=== PATIENT | female | born 1960 | race Caucasian/White ===

== ENCOUNTER 2024-12-04 14:35 | Outpatient (CLI) | payer MEDICARE, SELFPAY ==
--- OUTSIDE RECORDS SUMMARY | 2024-10-22 12:40 | XMS_ITS | Encounter Summary ---
Author Organization Healthcare Address [address] [place] [address] Care Team Providers Care Medical Illustrator Name Role Phone Yennifer Mcgee Primary Care Provider [phone] Amberly Childs LPN Unavailable Unavailable Reason for Visit * Consultation (Routine) - Closed Specialty Diagnoses / Procedures Referred By Contabe t Referred To Contact Diagnoses Hypertensive emergency Al Zachary Fonseca MD [address] [place] [phone] Phone: tel: fax: Referral ID Status Reason Start Date Expiration Date Visits Re quested Visits Authorized [id number] Closed 10/14/2024 04/15/2026 1 1 Encounter Details Date Type Department Care Team ([facility] Contact Info) Description 10/22/2024 12:40 PM EDT Office Visit [facility] [address] [place] [address] Breezy Harkins MD [address] [address] MIESHA (acute kidney injury) (CMS/HCC) (Primary Dx); Hypertensive emergency Social History Tobacco Use Types Packs/Day Years Used Date Smoking Tobacco: Every Day Cigarettes 1 43 Passive Smoke Exposure: Current Smokeless Tobacco: Never Tobacco Cessation:Ready to Q uit: Not Asked; Counseling Given: Not Answered Alcohol Use Standard Drinks/Week Comments Not Currently 0 (1 standard drink = 0.6 oz pur e alcohol) Humiliation, Afraid, Rape, and Kick questionnair e Answer Date Recorded Within the last year, have y ou been afraid of your partner or ex-partner? No 10/08/2024 Within the last year, have y ou been humiliated or emotionally abused in other ways by your partner or ex-partner? No Within the last year, have y ou been kicked, hit, slapped, or otherwise physically hurt by your partner or ex-partner? No 10/08/2024 Within the last year, have y ou been raped or forced to have any kind of sexual activity by your partner or ex-partner? No 10/08/2024 Social Connection and Isolation Panel Answer Date Recorded In a typical week, how many times do you talk on the phone with family, friends, or neighbors? More than three times a week 10/08/2024 How often do you get togethe r with friends or relatives? More than three times a week 10/08/2024 How often do you attend [facility] or methodist services? Never 10/08/2024 Do you belong to any clubs o r organizations such as evangelical groups, unions, fraternal or athletic groups, or school groups? No 10/08/2024 How often do you attend meet ings of the clubs or organizations you belong to? Never 10/08/2024 Are you , , di vorced, , never , or living with a partner? Patient declined 10/08/2024 AUDIT-C Answer Date Recorded Q1: How often do you have a drink containing alcohol? Never 10/08/2024 Q2: How many drinks containi ng alcohol do you have on a typical day when you are drinking? Patient does not drink Q3: How often do you have si x or more drinks on one occasion? Never 10/08/2024 [facility] - Occupational Stress Questionnaire Answer Date Recorded Do you feel stress - tense, restless, nervous, or anxious, or unable to sleep at night because your mind is troubled all the time - these days? Only a little 10/08/2024 Exercise Vital Sign Answer Date Recorde d On average, how many days pe r week do you engage in moderate to strenuous exercise (like a brisk walk)? 0 days 10/08/2024 On average, how many minutes do you engage in exercise at this level? 0 min 10/08/2024 Hunger Vital Sign Answer Date Recorded Within the past 12 months, y ou worried that your food would run out before you got the money to buy more. Never true 10/09/19 25 Within the past 12 months, t he food you bought just didn't last and you didn't have money to get more. Never true 10/08/2024 PRAPARE - Transportation Answer Date Re corded In the past 12 months, has l ack of transportation kept you from medical appointments or from getting medications? No 09/23 In the past 12 months, has l ack of transportation kept you from meetings, work, or from getting things needed for daily living? No 10/08/2024 Housing Stability Vital Sign Answer Dmitry e Recorded In the last 12 months, was t here a time when you were not able to pay the mortgage or rent on time? No 10/08/2024 In the past 12 months, how m any times have you moved where you were living? 0 10/08/2024 At any time in the past 12 m [facility], were you homeless or living in a custodial (including now)? No 10/08/2024 Utilities Answer Date Recorded In the past 12 months has th e electric, gas, oil, or water company threatened to shut off services in your home? No 10/08/2024 Comments Unknown Sex and Gender Information Value Date Recorded Sex Assigned at Not on file Legal Sex Female 2:10 PM EDT Gender Identity Not on file Sexual Orientation Not on file documented as of this encounter Last Filed Vital Signs Vital Sign Reading Time Taken Comments Blood Pressure 142/88 10/22/2024 12:51 PM EDT provider made aware Pulse 70 10/22/2024 12:51 PM EDT Temperature - - Respiratory Rate 18 10/22/2024 12:4 5 PM EDT Oxygen Saturation 98% 10/22/2024 12: 45 PM EDT Inhaled Oxygen Concentration - - Weight 39.3 kg (86 lb 10.3 oz) 10/22/2024 12:45 PM EDT Height 154.9 cm (5' 1 ) 10/22/2024 12:4 5 PM EDT Body Mass Index 16.37 10/22/2024 12:45 PM EDT documented in this encounter Miscellaneous Notes * Progress Notes - Breezy Harkins MD - 10/22/2024 12:40 PM EDT Transitional Care Management Progress Note: Vtie-ya-Msqe Visit Patient: Samantha Rabago : 1960 PCP: Yennifer Mcgee PA Subjective Samantha Rabago is a 63 y.o. female presenting today for follow-up after being discharged from the hospital 8 days ago. The main problem requiring admission was HTN. The discharge summary and/or Transitional Care Management documentation was reviewed. Medication reconciliation was performed as indicated via the Dioni as Reviewed timestamp. Samantha Rabago was contacted by Transitional Care Management services two days after her discharge. This encounter and supporting documentation was reviewed. The complexity of medical decision making for this patient's transitional care is moderate. Synopsis of recent Hospital Stay (with paraphrasing): 63 y.o. female with a PMH of HTN, untreated anxiety and depression, CAD x4 stents who presented from [facility] for psychosis and delusions due to elevated blood pressure, chest pain, and headache. Patient went to OSH and had chest pain. Troponin was 21 --> 22 and BP was 193/128 on arrival. Coreg was given. Her BP improved to 184/52 but had headache that was the worst headache of her life. Also endorsed blurry vision. She had scans of her chest and abdomen showing no evidence of aortic dissection. Upon arrival, BP was 210/107. In the ED, patient was given Zyprexa and this improved her BP. CBC andCMP unremarkable, troponin 13. CT head showed no large acute cortical infarct or intracranial hemorrhage, moderate amount of likely ischemic white matter lesions asymmetrically greater in the left parietal lobe, areas of superimposed edema concerning PRES, tiny air bubble in right cavernous sinus presumably related to IV placement. EKG showed LVH. Neurology was consulted and recommended MRI head,which showed moderate white matter disease, that might represent a combination of chronic small vessel ischemia and potentially areas of vasogenic edema, particularly in the parietal periventricular white matter, perhaps related to posterior reversible encephalopathy. Patient was started on nifedipine 30 mg in addition to her losartan and Coreg. Losartan was discontinued due to MIESHA. Nifedipine was increased to 60 mg. States she was taking aspirin 324 mg for years after stent placement. Called cardiology who said there was no indication for that high of a dose. Due to bleeding risk on that high of a dose of aspirin and no indication, changed dose to 81 mg daily. Referral placed for cardiology. Psych was consulted for psychosis. Initially she was started on Zyprexa but this was changed to [place]ry[place] ldol due to side effects of dry mouth and feeling off. Psych stated patient could come off of 72-hour hold and did not need to go to [facility] or [facility] on discharge. Patient Presents to Discharge Clinic today for followup. She reports she is doing well. Catching upon sleep. She does not have a BP cuff.No new problems. Review of Systems: Review of Systems Constitutional: Negative for chills and fever. Gastrointestinal: Negative for nausea and vomiting. PMHx: COPD TUD anxiety/depression Arthritis CAD, s/p heart stent Hypertension Malnutrition Past Surgical History: Surgical History[1] Family History: Family History[2] Objective Physical Exam Vitals and nursing note reviewed. Constitutional: Appearance: Normal appearance. She is underweight. HENT: Head: Normocephalic and atraumatic. Mouth/Throat: Mouth: Mucous membranes are moist. Pharynx: No oropharyngeal exudate or posterior oropharyngeal erythema. Eyes: General: No scleral icterus. Conjunctiva/sclera: Conjunctivae normal. Pupils: Pupils are equal, round, and reactive to light. Cardiovascular: Rate and Rhythm: Normal rate and regular rhythm. Pulses: Normal pulses. Heart sounds: Normal heart sounds. Pulmonary: Effort: Pulmonary effort is normal. Breath sounds: Wheezing present. Abdominal: General: There is distension. Musculoskeletal: General: Normal range of motion. Cervical back: No tenderness. Right lower leg: No edema. Left lower leg: No edema. Lymphadenopathy: Cervical: No cervical adenopathy. Skin: General: Skin is warm and dry. Neurological: Mental Status: She is alert and oriented to person, place, and time. Psychiatric: Attention and Perception: Attention normal. Mood and Affect: Affect is flat. Speech: Speech normal. Behavior: Behavior normal. Behavior is cooperative. Thought Content: Thought content normal. Judgment: Judgment normal. Assessment and Plan: 1) Hypertension with recent Hypertensive emergency with PRES presented with elevated BP (210/107) with headache and chest pain (trops without delta, EKG withoutST changes) CT head showed moderate amount of likely ischemic white matter lesions asymmetrically greater in the left parietal lobe, areas of superimposed edema concerning PRES MRI head: Moderate white matter disease, some of the regions demonstrates a more confluent appearance. This might represent a combination of chronic small vessel ischemia and potentially areas of vasogenic edema, particularly in the parietal periventricular white matter, perhaps related to posterior reversible encephalopathy in this patient with known hypertensive crisis. Continue: Coreg 12.5 mg BID (prior med), Nifedipine 60mg daily (new med). Note: losartan was held due to MIESHA Neuro was consulted for PRES-no specific recommendations other than BP control BP well controlled today. Will not add back losartan, as she has no clear indication outside of HTN(no DM or CHF) 2) MIESHA Creatinine increased from 0.68 --> 1.16 (baseline ~0.6-0.9) Likely 2/2 HTN Currently holding losartan, can restart if needed once creat has demonstrated clear baseline. Check BMP today 3) Recent Psychosic symptoms, MDD, Uncontrolled Anxiety Recently at [facility] for psychosis and delusions, petitioned by daughter on 10/03 and was placed under a [address] order. Patient had demonstrated: paranoia, tangentiality, pressured speech. Reports demons forcing poison into her body. Believed her daughter and son-in-law were into witchcraft so she must pour water outside to counteract the witchcraft. Psych financial operations consultant opined: no longer requires 72-hour hold, did not need to return to [facility] or [facility] Zyprexa caused side effects of dry mouth and feeling off. Did well with Haldol. Patient planned to saty with friend/cousin. Report made by NICKOLAS due to patient stating that her grandchildren were being groomed. Cont: nightly Haldol 5 mg 4) Malnutrition BMI 16.19 She has gained about 3 pounds since discharge and is eating a little better. allergic to soy so discontinued Boost, used magic cups instead 5) Bilateral lower back pain Deemed Likely muscle pain due to lying in bed for extended periods 6) COPD not on treatment 7) CAD, s/p stents She denies CHF COnt: atorvastatin, aspirin 81 mg 8) TUD does not like nicotine patch, likes nicotine gum discussed cessation and sent script for nicotine gum today. The patient has been counseled on tobacco cessation: Yes Continuity of Care: F/U with Cards 12/31, PCP listed as Yennifer Harkins MD 10/22/2024 1:12 PM [1] Past Surgical History: Procedure Laterality Date APPENDECTOMY NECK SURGERY [2] Family History Problem Relation Name Age of Onset Heart disease Mother documented in this encounter Plan of Treatment Upcoming Encounters Date Type Department Care Team (Late st Contact Info) Description 12/19/2024 1:40 PM EDT Office Visit [facility] Medicine [address] [place] [address] Brynn Baez, CHILLER OPERATOR [address] [place] [address] 12/31/2024 1:30 PM EDT Appointment Medical Office Building Cardiac Diagnostic Testing Medical Office Building Echo Lab [address] [facility], [address] [place] [address] 12/31/2024 2:45 PM EDT Office Visit [facility] [place] [address], [address] [place] [address] Dank Carrasquillo MD [address] [place] [address] documented as of this encounter Results * (ABNORMAL) Basic metabolic panel (10/22/2024 1:32 PM EDT) Glucose, Plasma 105(H) 74 - 99 mg/dL 10/22/2024 5:09 PM EDT [facility] BUN, Plasma 16 8 - 23 mg/dL 10/22/2024 5:09 PM EDT [facility] Creatinine, Plasma 0.75 0.60 - 1.10 mg/dL 10/22/2024 5:09 PM EDT [facility] BUN/Creatinine Ratio 21 10/22/2024 5:09 PM EDT [facility] Sodium, Plasma 137 136 - 145 mmol/L 10/22/2024 5:09 PM EDT [facility] Potassium, Plasma 4.0 3.6 - 4.9 mmol/L 10/22/2024 5:09 PM EDT [facility] Chloride, Plasma 100 97 - 107 mmol/L 10/22/2024 5:09 PM EDT [facility] CO2, Plasma 27 22 - 29 mmol/L 10/22/2024 5:09 PM EDT [facility] Anion Gap 10 6 - 16 mmol/L 10/22/2024 5:09 PM EDT [facility] Total Calcium, Plasma 9.9 8.9 - 10.2 mg/dL 10/22/2024 5:09 PM EDT [facility] eGFRcr 89.6 mL/min/1.7 3m*2 10/22/2024 5:09 PM EDT [facility] Comment:Reported eGFRcr in m L/min/1.73m2 is based the CKD-EPI 2020 equation that does not use a race coefficient. Blood Venous blood specimen / Unknown Venipuncture / Unknown 10/22/2024 1:32 PM EDT 10/22/2024 1:35 PM EDT us Breezy Harkins MD LAB BLOOD ORDERABLES Final Re sult [facility] [address] [place] [address] documented in this encounter Visit Diagnoses Diagnosis MIESHA (acute kidney injury) (CMS/HCC)- Primary Hypertensive emergency documented in this encounter Additional Health Concerns Assessment Noted Time A fall risk assessment has been complete d for the patient 10/22/2024 12:49 PM EDT A Body Mass Index follow-up plan has been documented for the patient 10/22/2024 1:13 PM EDT documented as of this encounter Care Teams Medical Illustrator Relationship Specialty Start Date End Date Yennifer Mcgee PA [address] [place] [address] PCP - General Psychiatry 10/03/24 Amberly Childs LPN TCM Nurse 10/09/24 11/14/24 documented as of this encounter
[2024-12-04 18:30] LABS: Basophils # 0.1 K/mm3 (0-0.2); Basophils % 1.4 % (0.1-2.0); Eosinophils # 0.2 Kmm3 (0.0-0.4); Eosinophils % 2.2 % (0.1-12.0); Hematocrit 47.8 % (37.0-47.0); Hemoglobin 16.1 g/dL (12.2-16.2); Immature Granulocytes # 0.05 10^3uL; Immature Granulocytes % 0.6 %; Lymphocytes # 2.5 K/mm3 (0.7-4.5); Mean Corpuscular HGB Conc 33.7 g/dL (31.8-35.4); Mean Corpuscular Hemoglobin 32.3 pg (27.0-31.2); Mean Platelet Volume 9.4 fl (7.4-10.4); Monocytes # 0.8 K/mm3 (0.1-1.0); Monocytes % 8.9 % (1.7-9.3); Neutrophils # 5.1 K/mm3 (1.8-7.8); Neutrophils % 57.9 % (37.0-80.0); Nucleated Red Blood Cells # 0 10^3/uL; Nucleated Red Blood Cells % 0 %; Platelet Count 332 K/mm3 (142-424); Red Blood Count 4.98 M/mm3 (4.20-5.40); Red Cell Distribution Width 12.5 % (11.5-17.5); Red Cell Distribution Width-SD 44.7 fL; White Blood Count 8.7 K/mm3 (4.8-10.8)
[2024-12-04 19:48] LABS: Alanine Aminotransferase 12 U/L (12-78); Albumin Level 4.7 g/dl (3.5-5.0); Alkaline Phosphatase 74 U/L (38-126); Anion Gap 8.9 mEq/L (5-15); Aspartate Amino Transferase 20 U/L (14-36); Bilirubin,Total 0.5 mg/dl (0.2-1.3); Blood Urea Nitrogen 19 mg/dl (7-17); Calcium 9.8 mg/dl (8.4-10.2); Carbon Dioxide 30 mmol/L (22.0-30.0); Chloride 102 mmol/L (98-107); Chol/HDL Ratio 4.2 (1-3.5); Cholesterol 214 mg/dl (140-200); Estimated Glomerular Filt Rate 56 ml/min (>60); GFR (African American) 68 ML/MIN (>60); Globulin 2.4 g/dL (1.3-3.2); Glucose 101 mg/dl (74-100); HDL Cholesterol 51 mg/dl (40-60); Potassium 4.9 mmoL/L (3.5-5.1); Sodium 136 mmol/L (136-145); Total Protein,Serum 7.1 g/dl (6.3-8.2); Triglycerides 94 mg/dl (30-150); VLDL Cholesterol 19 mg/dL (0-40)
[2024-12-04 20:08] LABS: Direct LDL Cholesterol 117.55 mg/dL (100-129)
[2024-12-04 20:14] LABS: T4 (Thyroxine) 7.4 ug/dl (5.53-11.0)
[2024-12-04 20:18] LABS: HIV Combo NEGATIVE (Negative)
[2024-12-04 20:23] LABS: Hepatitis C Ab Qual. W/ RFX NEGATIVE (Negative)
[2024-12-04 20:27] LABS: Thyroid Stimulating Hormone 1.91 uIU/mL (0.465-4.68)
--- OUTSIDE RECORDS SUMMARY | 2024-12-05 23:24 | XMS_ITS | Encounter Summary ---
Author Organization Healthcare Address [address] [place] [address] Care Team Providers Care Manager Payer Name Role Phone Yennifer Mcgee Primary Care Provider [phone] Amberly Childs LPN Unavailable Unavailable Reason for Visit * Reason Comments TCM Call Encounter Details Date Type Department Care Team (Late st Contact Info) Description 10/17/2024 Patient Outreach POPULATION HEALTH [address] [facility], [address] [place] [address] Mandi Clark LPN VALUE-BASED TRANSFORMATION PROGRAM TCM Call Social History Tobacco Use Types Packs/Day Years Used Date Smoking Tobacco: Every Day Cigarettes Passive Smoke Exposure: Current Smokeless Tobacco: Never Alcohol Use Standard Drinks/Week Comments Not Currently [...] week 10/08/2024 How often do you attend chur ch or adventist services? Never 10/08/2024 Do you belong to any clubs o r organizations such as judaism groups, unions, fraternal or athletic groups, or [...] more drinks on one occasion? Never 10/08/2024 [facility] - Occupational Stress [...] any time in the past 12 m [facility], were you homeless or living in a group home (including now)? No 10/08/2024 Utilities Answer Date Recorded In the past 12 months has th e [employer], gas, oil, or water company threatened to shut off services in your home? No 10/08/2024 Comments Unknown Sex and Gender Information Value Date Recorded Sex Assigned at Not on file Legal Sex Female 2:10 PM EDT Gender Identity Not on file Sexual Orientation Not on file documented as of this encounter Miscellaneous Notes * Progress Notes - Mandi Clark LPN - 10/17/2024 9:28 AM EDT Admit Date: 10/06/2024 Discharge Date: 10/14/2024 Hospital Service: Hospital Medicine Discharge Diagnosis: Hypertensive emergency 10/17/2024 TCM call # 3 Patient Reached: No Outcome: Unable to reach patient for TCM nurse call. Voicemail box is full so no message left. Action: N/A Medication changes: Per Discharge Summary: Medication changes: - Discontinue Zyprexa due to side effects of dry mouth and feeling off. Start Haldol 5 mg nightly. Referral for Psychiatry outpatient. - Aspirin 325 mg changed to 81 mg due to no indication for that high of a dose and is increased bleeding risk. Cardiology referral placed. - Discontinued losartan due to worsening kidney function. Started nifedipine 60 mg. Continue Coreg 12.5 mg BID. Referral to PCP for blood pressure management. CHRISTIANNE appointment: 10/20/2024 @ 1:20pm with Breezy Harkins MD Items to address at CHRISTIANNE: N/A documented in this encounter Plan of Treatment Upcoming Encounters Date Type Department Care Team (Late st Contact Info) Description 12/19/2024 1:40 PM EDT Office Visit [facility] [address] [address] Brynn Baez, PRODUCTION STAFF WORKER [address] [place] [address] 12/31/2024 1:30 PM EDT Appointment Medical Office Building Cardiac Diagnostic Testing Medical Office Building Echo Lab [address] [facility], [address] [place] [address] 12/31/2024 2:45 PM EDT Office Visit [facility] [address] [facility], [address] [place] [address] Dank Carrasquillo MD [address] [place] [address] documented as of this encounter Visit Diagnoses Not on filedocumented in this encounter Additional Health Concerns Assessment Noted Time A Body Mass Index follow-up plan has been documented for the patient 10/14/2024 2:47 PM EDT documented as of this encounter Care Teams Manager Payer Relationship Specialty Start Date End Date Yennifer Mcgee PA [address] [address] PCP - General Psychiatry 10/03/24 Amberly Childs LPN TCM Nurse 10/09/24 11/14/24 documented as of this encounter
--- OUTSIDE RECORDS SUMMARY | 2024-12-05 23:24 | XMS_ITS | Encounter Summary ---
Author Organization Healthcare Address [address] [place] [address] Care Team Providers Care Superintendent Transportation Name Role Phone Yennifer Mcgee Primary Care Provider [phone] Amberly Childs LPN Unavailable Unavailable Reason for Visit * Reason Comments Follow-up Encounter Details Date Type Department Care Team (Late st Contact Info) Description 10/22/2024 Patient Outreach POPULATION HEALTH [address], [address] [place] [address] Amberly Childs LPN Follow-up Social History Tobacco Use Types Packs/Day Years [...] often do you attend chur ch or moravian services? Never 10/08/2024 Do you belong to any clubs o r organizations such as amish groups, unions, fraternal or athletic groups, or [...] more drinks on one occasion? Never 10/08/2024 [facility] ional Health - [...] time in the past 12 m [facility], were you homeless or living in a usp (including now)? No 10/08/2024 Utilities Answer Date [...] encounter Miscellaneous Notes * Progress Notes - Amberly Childs LPN - 10/22/2024 10:51 AM EDT 10/22/2024 TCM Follow-up Call Patient reached: No Outcome: Called patient for TCM nurse call, unable to contact, phone did not go to [email or web address]. Action: N/A documented in this encounter Plan of Treatment Upcoming Encounters Date Type Department Care Team (Late st Contact Info) Description 12/19/2024 1:40 PM EDT Office Visit [facility] [address] [place] [address] Brynn Baez APRN [address] [place] [address] 12/31/2024 1:30 PM EDT Appointment Medical Office Building Cardiac Diagnostic Testing Medical Office Building Echo Lab [address] [facility], [address] [place] [address] 12/31/2024 2:45 PM EDT Office Visit [facility] [place] [address] [facility], [address] [place] [address] Dank Carrasquillo MD [address] [place] [address] documented as of this encounter Visit Diagnoses Not on filedocumented in this encounter Additional Health Concerns Assessment Noted Time A fall risk assessment has been complete d for the patient 10/22/2024 12:49 PM EDT A Body Mass Index follow-up plan has been documented for the patient 10/22/2024 1:13 PM EDT documented as of this encounter Care Teams Superintendent Transportation Relationship Specialty Start Date End Date Yennifer Mcgee PA [address] [place] [address] PCP - General Psychiatry 10/03/24 Amberly Childs LPN TCM Nurse 10/09/24 11/14/24 documented as of this encounter
--- OUTSIDE RECORDS SUMMARY | 2024-12-05 23:24 | XMS_ITS | Encounter Summary ---
Author Organization Healthcare Address [address] [place] [address] Care Team Providers Care Director Of Optimization Name Role Phone Yennifer Mcgee Primary Care Provider [phone] Amberly Childs LPN Unavailable Unavailable Reason for Visit * Reason Comments TCM Call Encounter Details Date Type Department Care Team (Late st Contact Info) Description 10/16/2024 Patient Outreach POPULATION HEALTH [address], [address] [place] [address] Amberly Childs LPN TCM Call Social History Tobacco Use Types [...] often do you attend chur ch or sikh services? Never 10/08/2024 Do you belong to any clubs o r organizations such as methodist groups, unions, fraternal or athletic groups, or [...] more drinks on one occasion? Never 10/08/2024 [facility] - Occupational Stress Questionnaire Answer Date Recorded [...] any time in the past 12 m [facility], were you homeless or living in a detention (including now)? No 10/08/2024 Utilities Answer Date Recorded In the past 12 months has e [employer], gas, oil, or water [employer] threatened to shut off services in your home? No 10/08/2024 Comments Unknown Sex and Gender Information Value Date Recorded Sex Assigned at Not on file Legal Sex Female 2:10 PM EDT Gender Identity Not on file Sexual Orientation Not on file documented as of this encounter Miscellaneous Notes * Progress Notes - Amberly Childs LPN - 10/16/2024 2:02 PM EDT Admit Date: 10/06/2024 Discharge Date: 10/14/2024 Hospital Service: [facility] Discharge Diagnosis: Hypertensive emergency 10/16/2024 TCM call # 2 Patient Reached: No Outcome: Called patient for TCM nurse call, unable to reach, VM full, unable to leave message at this time. No emergency contacts listed. Action: N/A Medication changes: Per Discharge Summary: [...] Description 12/19/2024 1:40 PM EDT Office Visit [address] [address] Brynn Baez, BICYCLE SUBASSEMBLER [address] [place] [address] 12/31/2024 1:30 PM EDT Appointment Medical Office Building Cardiac Diagnostic Testing Medical Office Building Echo Lab [address] [facility], [address] [place] [address] 12/31/2024 2:45 PM EDT Office Visit [facility] [place] [address] [facility], [address] [place] [address] Dank Carrasquillo MD [address] [place] [address] documented as of this encounter Visit Diagnoses Not on filedocumented in this encounter Additional Health Concerns Assessment Noted Time A Body Mass Index follow-up plan has been documented for the patient 10/14/2024 2:47 PM EDT documented as of this encounter Care Teams Director Of Optimization Relationship Specialty Start Date End Date Yennifer Mcgee PA [address] [place] [address] PCP - General Psychiatry 10/03/24 Amberly Childs LPN TCM Nurse 10/09/24 11/14/24 documented as of this encounter
--- OUTSIDE RECORDS SUMMARY | 2024-12-05 23:25 | XMS_ITS ---
Author Organization [facility] Address [address] [place] [address] Care Team Providers Care Paint Laboratory Technician Name Role Phone Yennifer Mcgee Primary Care Provider [phone] Transitional Care Management Status:Closed (Closed) Start date:10/15/2024 Enrollment reason:Identified using hospital discharge data End date:11/14/2024 Close reason:Patient graduated Overview This episode type is for outpatient care managers enrolling patients in the [facility] Transitional Care Management program. Continued Care and Services Coordination
--- OUTSIDE RECORDS SUMMARY | 2024-12-05 23:25 | XMS_ITS | Encounter Summary ---
Author Organization Healthcare Address [address] [place] [address] Care Team Providers Care Acid Polymerization Operator Name Role Phone Yennifer Mcgee Primary Care Provider [phone] Amberly Childs LPN Unavailable Unavailable Encounter Details Date Type Department Care Team (Late st Contact Info) Description 10/23/2024 Results Follow-Up [facility] [address] [place] [address] Breezy Harkins MD [address] [place] [address] Social History Tobacco Use Types Packs/Day Years [...] often do you attend chur ch or alevism services? Never 10/08/2024 Do you belong to any clubs o r organizations such as confucianism groups, unions, fraternal or athletic groups, or [...] more drinks on one occasion? Never 10/08/2024 [facility] - Occupational Stress Questionnaire Answer [...] any time in the past [address] [facility], were you homeless or living in a chcf (including now)? No 10/08/2024 Utilities Answer Date Recorded In the past 12 months has th e [employer], gas, oil, or water [employer] threatened to shut off services in your home? No 10/08/2024 Comments Unknown Sex and Gender Information Value Date Recorded Sex Assigned at Not on file Legal Sex Female 2:10 PM EDT Gender Identity Not on file Sexual Orientation Not on file documented as of this encounter Miscellaneous Notes * Telephone Encounter - Karen Noble - 10/24/2024 11:25 AM EDT ----- Message from Breezy Harkins MD sent at 10/23/2024 8:20 AM EDT ----- Please let her know her labs were great, including kidney function back to normal. It would be OK to restart Losartan now at low dose, but she can wait and discuss with her new PCP on the . If her blood pressure is good, she may not need to start it back. ----- Message ----- From: Lab, Background User Sent: 10/22/2024 5:09 PM EDT To: Breezy Harkins MD documented in this encounter Plan of Treatment Upcoming Encounters Date Type Department Care Team (Late st Contact Info) Description 12/19/2024 1:40 PM EDT Office Visit [facility] [place] [address] Brynn Baez, PATIENT INFORMATION COORDINATOR [address] [place] [address] 12/31/2024 1:30 PM EDT Appointment Medical Office Building Cardiac Diagnostic Testing Medical Office Building Echo Lab [address] [facility], [address] [place] [address] 12/31/2024 2:45 PM EDT Office Visit [facility] [place] [address] [facility] [address], [address] [place] [address] Dank Carrasquillo MD [address] [place] [address] documented as of this encounter Visit Diagnoses Not on filedocumented in this encounter Additional Health Concerns Assessment Noted Time A fall risk assessment has been complete d for the patient 10/22/2024 12:49 PM EDT A Body Mass Index follow-up plan has been documented for the patient 10/22/2024 1:13 PM EDT documented as of this encounter Care Teams Acid Polymerization Operator Relationship Specialty Start Date End Date Yennifer Mcgee PA [address] [place] [id number] PCP - General Psychiatry 10/03/24 Amberly Childs LPN TCM Nurse 10/09/24 11/14/24 documented as of this encounter
--- OUTSIDE RECORDS SUMMARY | 2024-12-05 23:25 | XMS_ITS | Encounter Summary ---
Author Organization Healthcare Address [address] [place] [address] Care Team Providers Care Combination Building Inspector Name Role Phone Yennifer Mcgee Primary Care Provider [phone] Amberly Childs LPN Unavailable Unavailable Reason for Visit * Reason Comments Pre-Visit Review Encounter Details Date Type Department Care Team (Late st Contact Info) Description 11/12/2024 Education [facility] [address] [place] [address] Hank Sánchez, RN Social History Tobacco Use Types Packs/Day Years [...] often do you attend chur ch or taoist services? Never 10/08/2024 Do you belong to any clubs o r organizations such as religious groups, unions, fraternal or athletic groups, or [...] more drinks on one occasion? Never 10/08/2024 [facility] - Occupational Stress Questionnaire [...] any time in the past 12 m [facility], were you homeless or living in a mcc (including now)? No 10/08/2024 Utilities Answer Date Recorded In the past 12 months has e electric, gas, oil, or water company threatened to shut off services in your home? No 10/08/2024 Comments Unknown Sex and Gender Information Value Date Recorded Sex Assigned at Not on file Legal Sex Female 2:10 PM EDT Gender Identity Not on file Sexual Orientation Not on file documented as of this encounter Miscellaneous Notes * Clinician Note - Hank Sánchez RN - 11/12/2024 12:56 PM EDT Attempted to contact patient for Pre-Visit Review, however unable to reach.. Additional information: [facility] Hank Sánchez RN Pharmacy Patient Support Services Clinic: [facility]. documented in this encounter Plan of Treatment Upcoming Encounters Date Type Department Care Team (Late st Contact Info) Description 12/19/2024 1:40 PM EDT Office Visit [facility] [address] [place] [address] Brynn Baez, [employer] [address] [place] [address] 12/31/2024 1:30 PM EDT Appointment Medical Office Building Cardiac Diagnostic Testing Medical Office Building Echo Lab [address] [facility], [address] [place] [address] 12/31/2024 2:45 PM EDT Office Visit [facility] [place] [address] [facility], [address] [place] [address] Dank Carrasquillo MD [address] [place] [address] documented as of this encounter Visit Diagnoses Not on filedocumented in this encounter Additional Health Concerns Assessment Noted Time A fall risk assessment has been complete d for the patient 10/22/2024 12:49 PM EDT A Body Mass Index follow-up plan has been documented for the patient 10/22/2024 1:13 PM EDT documented as of this encounter Care Teams Combination Building Inspector Relationship Specialty Start Date End Date Yennifer Mcgee PA [address] [place] [address] PCP - General Psychiatry 10/03/24 Amberly Childs LPN TCM Nurse 10/09/24 11/14/24 documented as of this encounter
--- OUTSIDE RECORDS SUMMARY | 2024-12-05 23:25 | XMS_ITS | Encounter Summary ---
Author Organization Healthcare Address [address] [place] [address] Care Team Providers Care Automotive Technician Name Role Phone Yennifer Mcgee Primary Care Provider [phone] Amberly Childs LPN Unavailable Unavailable Reason for Visit * Reason Comments TCM Call Encounter Details Date Type Department Care Team (Late st Contact Info) Description 10/15/2024 Patient Outreach POPULATION HEALTH [address], [address] [place] [address] Amberly Childs LPN TCM Call [...] any clubs o r organizations such as presybeterian groups, unions, fraternal or athletic groups, or [...] more drinks on one occasion? Never 10/08/2024 [facility] - Occupational Stress Questionnaire Answer Date Recorded [...] any time in the past 12 m [facility], were you homeless or living in a nursing home (including now)? No 10/08/2024 Utilities Answer Date Recorded In the past 12 months has e [employer], gas, oil, or water company threatened to shut off services in your home? No 10/08/2024 Comments Unknown Sex and Gender Information Value Date Recorded Sex Assigned at Not on file Legal Sex Female 2:10 PM EDT Gender Identity Not on file Sexual Orientation Not on file documented as of this encounter Miscellaneous Notes * Progress Notes - Amberly Childs LPN - 10/15/2024 9:09 AM EDT Admit Date: 10/06/2024 Discharge Date: 10/14/2024 Hospital Service: [facility] Discharge Diagnosis: Hypertensive emergency 10/15/2024 TCM call # 1 Patient Reached: No Outcome: Called patient for TCM nurse call, unable to reach, VM full, unable to leave message at this time. Action: Appointment reminder letter printed, to be mailed by office staff. Medication changes: Per Discharge Summary: Medication changes: [...] Description 12/19/2024 1:40 PM EDT Office Visit [facility] [address] [place] [address] Nestor Brynn C, SELVAGE MACHINE OPERATOR [address] [place] [address] 12/31/2024 1:30 PM EDT Appointment Medical Office Building Cardiac Diagnostic Testing Medical Office Building Echo Lab [address] [facility], [address] [place] [address] 12/31/2024 2:45 PM EDT Office Visit [facility] [place] [address] [facility], [address] [place] [address] Dank Carrasquillo MD [address] [place] [address] documented as of this encounter Visit Diagnoses Not on filedocumented in this encounter Additional Health Concerns Assessment Noted Time A Body Mass Index follow-up plan has been documented for the patient 10/14/2024 2:47 PM EDT documented as of this encounter Care Teams Automotive Technician Relationship Specialty Start Date End Date Yennifer Mcgee PA [address] [address] PCP - General Psychiatry 10/03/24 Amberly Childs LPN TCM Nurse 10/09/24 11/14/24 documented as of this encounter
--- OUTSIDE RECORDS SUMMARY | 2024-12-05 23:25 | XMS_ITS | Patient Health Record ---
Author Organization [facility] Billing Info Address [address] [place] [address] Support Name Relationship Address Phone Samantha Rabago Guarantor Unknown [phone] Allergies Allergen (clinical drug ingredient) Drug/Non Drug Allergy documented on EMR Reaction Allergy Type Onset Date Status Azithromycin Unknown Drug Allergy Acti ve codeine Codeine Sulfate Unknown Drug Allergy A ctive Levaquin Unknown Drug Allergy Active Sulfamethoxazole Unknown Drug Allergy Active Reason For Referral No Information Medications Medication SIG (Take, Route, Frequency, Duration) Notes Start Date End Date Status Amoxicillin 875 MG 1 tablet Orally Twic e a day for 5 day(s) 03/10/2021 Active Aspir-81 Active Nitroglycerin Active Cetirizine HCl 10 MG 1 capsule Orally On ce a day Active Wellbutrin Active Fluticasone Propionate 50 MCG/ACT 2 spray in each nostril Nasally Once a day Active Clonidine HCl Active Amlodipine Besylate Active Albuterol Active Problems Problem Type SNOMED Code ICD Code Onset Dates Problem Status W/U Status Risk Notes Problem 179069622 Sore throat (J02.9) Active confirmed Problem Sinus drainage (J34.89) Active confirmed Plan Of Treatment No Information Insurance Providers Payer Name Payer Address Payer Phone Subscriber Number Group Number Insured Name Patient Relationship to Insured Coverage Start Date Coverage End Date [employer] PPO MEDICARE [address] [address] [place], [place] [id number] [phone] [id number] Samantha Rabago Self - patient is the insured 1 Medical (General) History Surgical History Surgery Date(Month/Year) appendectomy wrist surgery
--- OUTSIDE RECORDS SUMMARY | 2024-12-05 23:25 | XMS_ITS | Clinical Summary ---
Author Organization [facility] Address [address] [place] [address] Phone Care Team Providers Care Special Distribution Clerk Name Role Phone aFhad Cortez MD Primary Care Provider [phone] Allergies Active Allergy Reactions Criticality Noted Date Comments Cephalosporins Swelling Medium 05/06/2012 Ciprofloxacin Swelling Medium 09/28/2021 Clarithromycin Swelling Medium 05/06/2012 Codeine Swelling Medium 05/06/2012 Erythromycin Swelling Medium 05/06/2012 Levofloxacin Rash Medium 01/16/2024 Neomycin Swelling Medium 12/17/2023 Soy Nausea And Vomiting Medium 09/28/2021 Sulfa (Sulfonamide Antibiotics) Hives Medium 11/24 Tetracycline Rash Low 10/12/2017 Wheat Nausea And Vomiting High 05/06/2012 Medications cetirizine (ZYRTEC) 10 mg Oral Tablet Take by mouth daily. Active carvediloL (COREG) 6.25 mg Oral Tablet TAKE TWO (2) TABLETS BY MOUTH TWICE DAILY Active albuterol-ipratr opium (DUO-NEB) 0.5 mg-3 mg(2.5 mg base)/3 mL Inhl Solution for Nebulization INHALE THREE (3) ML FOUR (4) TIMES A DAY BY NEBULIZATION ROUTE FOR FIVE (5) DAYS. 4 Active nitroGLYCERIN (NITROSTAT) 0.4 mg SL Tablet, Sublingual Active valACYclovir (VALTREX) 1 gram Oral Tablet TAKE TWO (2) TABLETS BY MOUTH EVERY 12 HOURS (MORNING & NIGHT) FOR ONE (1) DAY. TAKE WITHIN 48 HOURS OF ONSET. Active albuterol (PROVENTIL HFA;VENTOLIN HFA) 90 mcg/actuation Inhl HFA Aerosol Inhaler INHALE TWO (2) PUFFS EVERY FOUR (4) HOURS BY INHALATION ROUTE Active fluticasone propionate (FLONASE) 50 mcg/actuation Nasl [place], Suspension by Nasal route daily. Active dicyclomine (BENTYL) 10 mg Oral Capsule Take by mouth as needed. Active sucralfate (CARAFATE) 1 gram Oral Tablet Take by mouth 4 times daily. Active [id number] wrw-KzUc-SKy-asb -C (PLENVU) 140-9-5.2 gram Oral Powder in Packet, SequentialIndica tions:Change in bowel function,Persona l history of colonic polyps Take 3 Packets by mouth Preprocedure for up to 1 dose. Take 1 kit per physician instructions 3 Packet 4 Active Additional Information Patient not taking.Reason: Therapy Completed, Reported on 01/16/2024 polyethylene glycol (GOLYTELY) 236-22.74-6.74 -5.86 gram Oral Recon SolnIndications: Screening for colon cancer Take 1 kit per physician instructions 1 Each 4 Active Additional Information Patient not taking.Reason: Therapy Completed, Reported on 01/16/2024 amoxicillin (AMOXIL) 500 mg Oral Capsule Take 1 capsule twice a day by oral route for 10 days. Active aspirin 81 mg Oral Tablet, Delayed Release (E.C.) Take 1 tablet every day by oral route. Active predniSONE (DELTASONE) 20 mg Oral Tablet Take 1 tablet every day by oral route for 5 days. 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 Overview (01/16/2024): Added automatically from request for surgery [id number] Coronary arteriosclerosis 03/01/2017 Gastroenteritis 10/10/2016 Hypertensive disorder 08/24/2016 Irritable bowel syndrome 08/24/2016 Surgical History Surgery Date Site/Laterality Comments CARDIAC CATHETERIZATION CORONARY ANGIOPLASTY WITH STENT PLACEMENT RECTAL SURGERY APPENDECTOMY WRIST SURGERY TONSILLECTOMY AND ADENOIDECTOMY COLONOSCOPY UPPER GASTROINTESTINAL ENDOSCOPY Social History Tobacco Use Types Packs/Day Years Used Date Smoking Tobacco: Every Day Cigarettes Smokeless Tobacco: Never Tobacco Cessation:Ready to Q uit: Not Asked; Counseling Given: Not Answered Comments No Sex and Gender Information Value Date Recorded Sex Assigned at Not on file Legal Sex Female 10:12 AM EDT Gender Identity Not on file Sexual Orientation Not on file Obstetrics History Last Filed Vital Signs Vital Sign Reading Time Taken Comments Blood Pressure 161/84 01/16/2024 10:16 AM EDT Pulse 61 01/16/2024 10:16 AM EDT Temperature 36.6 C (97.9 F) 01/16/2024 7:38 AM EDT Respiratory Rate 16 01/16/2024 10:16 AM EDT Oxygen Saturation 99% 01/16/2024 10:16 AM EDT Inhaled Oxygen Concentration - - Weight 40.8 kg (90 lb) 01/16/2024 7:38 AM EDT Height 152.4 cm (5') 01/16/2024 7:38 AM EDT Body Mass Index 17.58 01/16/2024 7:38 AM EDT Plan of Treatment Health Maintenance Due Date Last Done Comments Wellness Exam Medicare 12/03/1963 Hepatitis C Screening 1978 Pneumococcal Vaccine 50+ (1 of 2 - PCV) 12/03/1979 Cervical Cancer Screening 1981 Pap Smear 1981 HPV/Pap Cotest 1990 Breast Cancer Screening 2000 Cologuard 2005 FIT 2005 Sigmoidoscopy 2005 Virtual Colonography 2005 Zoster (1 of 2) 2010 RSV or 60+ (1 - Ris k 60-74 years 1-dose series) 2020 COVID-19 Vaccine (1 - 2023-2 5 season) 2024 Influenza Vaccine (Season Ended) 2025 05/08/20 13 DTaP/TDaP/Td (2 - Td or Tdap) 01/31/2028 01/30/2018 Colon Cancer Screening 01/15/2034 Colonoscopy 01/15/2034 01/16/2024 Hepatitis B Vaccine Aged Out No longe r eligible based on patient's age to complete this topic Meningococcal B Vaccine Aged Out No l onger eligible based on patient's age to complete this topic Procedures Procedure Name Priority Date/Time Associated Diagnosis Comments COLONOSCOPY Routine 01/16/2024 10:00 AM EDT Change in bowel function Personal history of colonic polyps from Last 3 Months or Most Recently Relevant to Health Maintenance Results * COLONOSCOPY (01/16/2024 10:00 AM EDT) Anatomical Region Laterality Modality Endoscopy Narrative 01/16/2024 10:05 AM EDT Table formatting from the original result was not included. Findings The prep was fair. The entire colon appeared normal. Performed random biopsy using biopsy forceps. One 6 mm sessile polyp in the transverse colon; no bleeding was identified; performed cold snare with complete en bloc removal and retrieved specimen. There was no evidence of postpolypectomy bleeding. Two 3 mm sessile polyps in the sigmoid colon; no bleeding was identified; performed cold forceps biopsy with complete en bloc removal. There was no evidence of postpolypectomy bleeding. Recommendation Await pathology results Follow up with me in clinic in 3 months Interval to next Colonoscopy will be based upon histology of polyp(s). Pre-Procedure Diagnosis / Indication Personal history of colonic polyps, Change in bowel function Post-Procedure Diagnosis Personal history of colonic polyps, Change in bowel function Staff Staff Role SULEMA Henson CRNA, RN Nurse Kamaljit Petit MD Performing Provider Medications See Anesthesia Record. Preprocedure A history and physical has been performed, and patient medication allergies have been reviewed. The patient's tolerance of previous anesthesia has been reviewed. The risks and benefits of the procedure and the sedation options and risks were discussed with the patient. All questions were answered and informed consent obtained. ASA 3 - Patient with severe systemic disease Details of the Procedure The patient underwent monitored anesthesia care, which was administered by an anesthesia professional. The patient's blood pressure, heart rate, level of consciousness, oxygen, respirations, ECG and ETCO2 were monitored throughout the procedure. A digital rectal exam was performed. The scope was introduced through the anus and advanced to the cecum. Retroflexion was performed in the rectum. Bowel prep was not adequate. The patient experienced no blood loss. The procedure was not difficult. The patient tolerated the procedure well. There were no apparent adverse events. Fair prep. Patient provided education and educated on specific discharge instructions. Patient educated on medications given during the procedure and new medications for discharge. Patient verbalizes understanding of discharge education. Patient stable and awaiting transport for discharge. Events Procedure Events Event Event Time ENDO SCOPE IN TIME 01/16/2024 9:28 AM ENDO SCOPE OUT TIME 01/16/2024 9:34 AM ENDO SCOPE IN TIME 01/16/2024 9:41 AM ENDO CECUM REACHED 01/16/2024 9:49 AM ENDO SCOPE WITHDRAW BEGIN 01/16/2024 9:50 AM ENDO SCOPE OUT TIME 01/16/2024 9:59 AM Specimens ID Type Source Tests Collected by Time 4 : Tissue Colon [facility] PATHOLOGY ORDER Kamaljit Petit MD 01/16/2024 1000 5 : Tissue Large Intestine, Transverse Colon [facility] PATHOLOGY ORDER Kamaljit Petit MD 01/16/2024 1000 6 : Tissue Large Intestine, Sigmoid Colon [facility] PATHOLOGY ORDER Kamaljit Petit MD 01/16/2024 1000 Dalila Benedict BOARD CERTIFIED BEHAVIORAL ANALYST ENDOSCOPY PROCEDURE ORDERA BLES Final Result from Last 3 Months or Most Recently Relevant to Health Maintenance Insurance [employer] MEDICARE PPO MR [place] MEDICARE PPO MR Care Teams Special Distribution Clerk Relationship Specialty Start Date End Date Fahad Cortez MD [address] [id number] PCP - General Family Medicine 01/16/24
--- OUTSIDE RECORDS SUMMARY | 2024-12-05 23:25 | XMS_ITS | Encounter Summary ---
Author Organization Healthcare Address [address] [place] [address] Care Team Providers Care Scaffolding Helper Name Role Phone Yennifer Mcgee Primary Care Provider [phone] Amberly Childs LPN Unavailable Unavailable Encounter Details Date Type Department Care Team (Latest Contact Info) Description 10/22/2024 Travel Social History Tobacco Use Types Packs/Day Years [...] week 10/08/2024 How often do you attend [facility] or taoist services? Never 10/08/2024 Do you belong to any clubs o r organizations such as mormonism groups, unions, fraternal or athletic groups, or [...] more drinks on one occasion? Never 10/08/2024 [facility] - Occupational Stress [...] any time in the past 12 [facility], were you homeless or living in a longterm (including now)? No 10/08/2024 Utilities Answer Date Recorded In the past 12 months has [facility] electric, gas, oil, or water company threatened to shut off services in your home? No 10/08/2024 Comments Unknown Sex and Gender Information Value Date Recorded Sex Assigned at Not on file Legal Sex Female 2:10 PM EDT Gender Identity Not on file Sexual Orientation Not on file documented as of this encounter Plan of Treatment Upcoming Encounters Date Type Department Care Team (Late st Contact Info) Description 12/19/2024 1:40 PM EDT Office Visit [facility] [address] [place] [address] Brynn Baez APRN [address] [place] [address] 12/31/2024 1:30 PM EDT Appointment Medical Office Building Cardiac Diagnostic Testing Medical Office Building Echo Lab [address] [facility] [address] [place] [address] 12/31/2024 2:45 PM EDT Office Visit [facility] [address] [facility] [address], [address] [place] [address] Dank Carrasquillo MD [address] [place] [phone] documented as of this encounter Visit Diagnoses Not on filedocumented in this encounter Additional Health Concerns Assessment Noted Time A fall risk assessment has been complete d for the patient 10/22/2024 12:49 PM EDT A Body Mass Index follow-up plan has been documented for the patient 10/22/2024 1:13 PM EDT documented as of this encounter Care Teams Scaffolding Helper Relationship Specialty Start Date End Date Yennifer Mcgee PA [address] [place] [address] PCP - General Psychiatry 10/03/24 Amberly Childs LPN TCM Nurse 10/09/24 11/14/24 documented as of this encounter
--- OUTSIDE RECORDS SUMMARY | 2024-12-05 23:25 | XMS_ITS | Patient Health Record ---
Author Organization Jim Hayes MD [facility] Address [address] [place], [place] [id number] Care Team Providers Care Deicer Finisher Name Role Phone NO, PCP Primary Care Provider Jacob Capone Unavailable [phone] Allergies Allergen (clinical drug ingredient) Drug/Non Drug Allergy documented on EMR Reaction Allergy Type Onset Date Status amoxicillin / clavulanate Augmentin Unknown Drug Allergy Active moxifloxacin Avelox Unknown Drug Allergy Acti ve caffeine Caffeine Unknown Drug Allergy Active Chloramphenicol Unknown Drug Allergy A ctive erythromycin Erythromycin Unknown Drug Allergy A ctive Levaquin Unknown Drug Allergy Active Lortab Unknown Drug Allergy Active enoxaparin Lovenox Unknown Drug Allergy Active tetracycline Tetracycline HCl Unknown Drug Allergy Active codeine codeine Unknown Drug Allergy Active Wheat Unknown Drug Allergy Active caffeine Caffeine Unknown Drug Allergy Active enoxaparin Enoxaparin Unknown Drug Allergy Activ e hydrocodone Hydrocodone Unknown Drug Allergy Act norma levofloxacin Levofloxacin Unknown Drug Allergy A ctive moxifloxacin Moxifloxacin Unknown Drug Allergy A ctive Substance with sulfonamide structure and antibacterial mechanism of action (substance) Sulfa Antibiotics Unknown Drug Allergy Active tetracycline Tetracycline Unknown Drug Allergy A ctive Reason For Referral No Information Medications Medication SIG (Take, Route, Frequency, Duration) Notes Start Date End Date Status Ranitidine HCl 150 MG 1 tablet Orally Tw ice a day 02/26/2018 Not-Taking Ranexa Not-Taking Albuterol Sulfate HFA Not-Taking Cefdinir 300 MG 1 capsule Orally every 12 hrs Not-Taking Ranitidine HCl 150 MG 1 capsule Orally Twice a day for 90 days 07/02/2018 Not-Taking Marinol Not-Taking OLANZapine 2.5 MG 1 tablet Orally Once a day Not-Taking Mirtazapine 30 MG 1 tablet at bedtime Orally Once a day Active Ondansetron 4 MG 1 tablet on the tongue and allow to dissolve as needed Orally Once a day as needed for 30 days Not-Taking Nitroglycerin 0.4 MG Sublingual prn Not-Taking Ranolazine ER 500 MG 1 tablet Orally Twi ce a day Not-Taking buPROPion HCl ER (SR) 150 MG 1 tablet Orally tid Not-Taki ng Dicyclomine HCl 10 MG 2 capsules Orally twice/day for 180 days 07/02/2018 Active Sucralfate 1 GM take 1 tablet by mouth twice a day on empty stomach for 30 days Orally twice/day for 180 days Active Atorvastatin Calcium 10 MG 1 tablet Oral ly Once a day Not-Taking Lisinopril 10 MG 1 tablet Orally Once a day for 30 day(s) Not-Taking Ventolin HFA Not-Alejandro ing Cyclobenzaprine HCl 10 MG 1 tablet as ne eded Orally Three times a day Not-Taking clonazePAM 1 MG 1 tablet Orally four times a day Not-Taking Dicyclomine HCl 20 MG TAKE 1 TABLET BY MOUTH 3 TIMES A DAY NEEDED for 90 Active Cetirizine HCl 5 MG 1 tablet Orally Once a day for 30 day(s) Active Amitiza 8 MCG 1 capsule with food Orally Twice a day for 90 days 11/23/2016 Not-Taking NIFEdipine ER 30 MG 1 tablet on an empty stomach Orally twice a day Active valACYclovir HCl 500 MG 2 tablets Orally every 12 hrs Not-Taking Multiple Vitamin - Orally N ot-Taking Aspirin 81 MG 1 tablet Orally Once a day Not-Taking Fluticasone Propionate 50 MCG/ACT 1 spray in each nostril Nasally Once a day Not-Taking Carvedilol 6.25 MG 2 tablet with food Orally Twice a day Active Social History Alcohol Screen Question Answer Notes Did you have a drink containing alcohol in the p ast year? 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 Problem Epigastric pain (58776091) Epigastric pain (R10.13) Active confirmed Problem Generalized abdominal pain (026043855) Generalized abdominal pain (R10.84) Active confirmed Problem 586650820 Nausea (R11.0) Active confirmed Problem Change in bowel habit (65144280) Change in bowel habit (R19.4) Active confirmed Problem Diarrhea (38434103) Diarrhea, unspecified (R19.7) Active confirmed Problem Urinary incontinence (720403392) Unspecified urinary incontinence (R32) Active confirmed Problem Anorexia (26077226) Anorexia (R63.0) Active confirmed Problem Abnormal weight loss (723341945) Abnormal weight loss (R63.4) Active confirmed Problem Food allergy (685019140) Allergy to other foods (Z91.018) Active confirmed Problem Acute myocardial infarction (13558656) Acute myocardial infarction, unspecified (I21.9) Active confirmed Plan Of Treatment Pending Test Test Name Order Date Ultrasound : Abdomen and Pelvis 02/07/20 18 Small Bowel Follow Through 02/26/2018 Insurance Providers Payer Name Payer Address Payer Phone Subscriber Number Group Number Insured Name Patient Relationship to Insured Coverage Start Date Coverage End Date [employer] [address] [address] [place] [phone] [id number] ADIA WALTERS Self - patient is the insured Medical (General) History Medical History History ICD Code COPD pleurisy hypertension osteoporosis depression Panic attacks chronic sinusitis chronic pain myocardial infarction cardiac stent hypercholesterolemia insomnia herpes colonoscopy--normal 11/2016 egd--10/2016 Surgical History Surgery Date(Month/Year) tonsillectomy ear tubes arm plate removed cervical fusion appendectomy cardiac stents placed 2 years ago Cardiac cath Hospitalization History Reason Date(Month/Year) pleurisy, chest pain, N/V, multiple visi ts hypertension 01/2022
--- OUTSIDE RECORDS SUMMARY | 2024-12-05 23:25 | XMS_ITS ---
Author Organization [facility] Address [address] [place] [address] Care Team Providers Care Manager Resource Name Role Phone Yennifer Mcgee Primary Care Provider [phone] Transitional Care Management Status:Closed (Closed) Start date:10/09/2024 Enrollment reason:Identified using hospital discharge data End date:10/15/2024 Close reason:Not Eligible Overview This episode type is for outpatient care managers enrolling patients in the [facility] Transitional Care Management program. Continued Care and Services Coordination
--- OUTSIDE RECORDS SUMMARY | 2024-12-05 23:25 | XMS_ITS | Clinical Summary ---
Author Organization Healthcare Address [address] [place] [address] Care Team Providers Care Telecommunications Repairer Name Role Phone McgeeYennifer Primary Care Provider [phone] Allergies Active Allergy Reactions Criticality Noted Date Comments Amoxicillin-Pot Clavulanate Unknown - Patient states they do not know rxn details Low 05/05/2012 GI UPSET Azithromycin Other - please document in the comment field,Shortness of breath High 10/27/2021 Cephalosporins Swelling High 05/06/2012 Chloramphenicol Unknown - Patient states they do not know rxn details Low 05/05/2012 Ciprofloxacin Swelling High 09/28/2021 Clarithromycin Swelling High 05/06/2012 Codeine Swelling High 10/03/2024 Enoxaparin Unknown - Patient states they do not know rxn details Low 05/05/2012 Erythromycin Hives Medium 10/03/2024 Hydrocodone Unknown - Patient states they do not know rxn details Low 10/06/2024 Levofloxacin Hives,Rash,Unknown - Patient states they do not know rxn details Medium 05/05/2012 SWELLING OF LIPS Neomycin Swelling High 10/19/2021 Soybean Extract Allergy Skin Test Nausea And Vomiting Medium 09/28/2021 Sulfa Drugs Hives,Rash,Unknown - Patient states they do not know rxn details Medium 05/05/2012 Tetracycline Rash,Unknown - Patient states they do not know rxn details Low 05/05/2012 Wheat Vomiting Low 10/03/2024 Medications * This document contains information received from the source organization and may not represent a complete record from that organization. albuterol 108 (90 Base) MCG/ACT inhaler Inhale 2 puffs 1 (one) time as needed. 07/09/2024 Active atorvastatin (Lipitor) 40 MG tablet Take 1 tablet by mouth daily. Active aspirin 81 MG chewable tablet Chew 1 tablet daily. 30 tablet 11 10/14/2024 Active haloperidol (Haldol) 5 MG tablet Take 1 tablet by mouth nightly. 30 tablet 11 10/14/2024 Active NIFEdipine XL (Adalat CC) 60 MG 24 hr tablet Take 1 tablet by mouth daily. Do not crush, chew, or split. 30 tablet 11 10/14/2024 Active hydrOXYzine pamoate (Vistaril) 50 MG capsule Take 1 capsule by mouth every 6 hours as needed for anxiety. 30 capsule 10/14/2024 Active carvedilol (Coreg) 12.5 MG tablet Take 1 tablet by mouth 2 (two) times a day. 60 tablet 10/14/2024 Active nitroglycerin (Nitrostat) 0.[address] 1 tablet under the tongue every 5 minutes as needed for chest pain. 100 tablet 2 10/22/2024 Active nicotine polacrilex (Nicorette) 4 MG gum Chew 1 each as needed for smoking cessation. 100 each 1 10/22/2024 Active Active Problems Problem Noted Date Diagnosed Date Severe protein-calorie malnutrition 10/07/2024 Overview (10/07/2024): Pt with severe malnutrition based on social/environmental circumstances with severe fat and muscle losses. Hypertensive emergency 10/06/2024 Uncontrolled hypertension 10/04/2024 Resolved Problems Problem Noted Date Diagnosed Date Resolved Date Hypertensive emergency 10/03/202410/04 Encounters * This document contains information received from the source organization and may not represent a complete record from that organization. Date Type Department Care Team Description 11/12/2024 Education [facility] [address] [place] [address] Hank Sánchez RN 10/23/2024 Results Follow-Up [facility] [address] [place] [address] Breezy Harkins MD 10/22/2024 12:40 PM EDT Office Visit [facility] [address] [place] [address] Breezy Harkins MD MIESHA (acute kidney injury) ([facility]) (Primary Dx); Hypertensive emergency 10/22/2024 Travel 10/22/2024 Patient Outreach POPULATION [address], [address] [place] [phone] Amberly Childs, PARTS CONTROL CLERK Follow-up 10/17/2024 Patient Outreach POPULATION [address], [address] [place] [phone] Mandi Clark, PARTS CONTROL CLERK TCM Call 10/16/2024 Patient Outreach POPULATION [address], [address] [place] [address] Amberly Childs, PARTS CONTROL CLERK TCM Call 10/15/2024 Patient Outreach POPULATION [address], [address] [place] [phone] Amberly Childs, PARTS CONTROL CLERK TCM Call 10/09/2024 Patient Outreach POPULATION [address], [address] [address] Amberly Childs, PARTS CONTROL CLERK TCM Call 10/08/2024 Travel 10/08/2024 Lab Requisition [facility] [address] [place] [address] Yennifer Mcgee PA Routine general medical examination at a health care facility 10/06/2024 Travel 10/06/2024 Lab Requisition [facility] [address] [place] [address] Yennifer Mcgee PA Routine general medical examination at a health care facility 10/03/2024 3:03 PM EDT - 10/04/2024 3:00 PM EDT Hospital Encounter [facility] [address] [place] [address] Zachary Wells MD Kato, Hirot[place], MD Acute chest pain (Primary Dx); Hypokalemia; Uncontrolled hypertension [facility] 10/03/2024 Travel from Last 3 Months Immunizations Immunization Administration Dates Next Due Influenza, seasonal, intradermal, preservative f ree 05/08/2013 Tdap 01/30/2018,04/03/2008 Family History Medical History Relation Name Comments Heart disease Mother Relation Name Status Comments Mother Social History Tobacco Use Types Packs/Day Years [...] week 10/08/2024 How often do you attend [facility] or buddhism services? Never 10/08/2024 Do you belong to any clubs o r organizations such as synagogue groups, unions, fraternal or athletic groups, or [...] you are drinking? Patient does not drink 04/16/202 5 Q3: How often do you have si x or more drinks on one occasion? Never 10/08/2024 [facility] Occupat ional Health - Occupational Stress [...] on file Sexual Orientation Not on file Last Filed Vital Signs Vital Sign Reading Time Taken Comments Blood Pressure 142/88 10/22/2024 12:51 PM EDT provider made aware Pulse 70 10/22/2024 12:51 PM EDT Temperature 36.7 C (98 F) 10/14/2024 11:52 AM EDT Respiratory Rate 18 10/22/2024 12:4 5 PM EDT Oxygen Saturation 98% 10/22/2024 12: 45 PM EDT Inhaled Oxygen Concentration - - Weight 39.3 kg (86 lb 10.3 oz) 10/22/2024 12:45 PM EDT Height 154.9 cm (5' 1 ) 10/22/2024 12:4 5 PM EDT Body Mass Index 16.37 10/22/2024 12:45 PM EDT Plan of Treatment Upcoming Encounters Date Type Department Care Team (Late st Contact Info) Description 12/19/2024 1:40 PM EDT Office Visit [facility] Medicine [address] [place] [address] Brynn Baez APRN [address] [place] [address] 12/31/2024 1:30 PM EDT Appointment Medical Office Building Cardiac Diagnostic Testing Medical Office Building Echo Lab [address], [address] [place] [address] 12/31/2024 2:45 PM EDT Office Visit [facility] [address], [address] [place] [address] Dank Carrasquillo MD [address] [place] [phone] Health Maintenance Due Date Last Done Comments [facility]-Depression Screening 1960 [facility]-Medicare Annual Wellness (AWV) 1960 [facility]-Infant/Child/Adol SDOH Screenings 1960 [facility]-Pneumococcal Vaccine: 50 + Years (1 of 2 - PCV) 12/03/1979 [facility]-HPV/Cotest 1990 CT Colonography 2005 FIT-DNA 2005 FIT 2005 Sigmoidoscopy 2005 [facility]-Zoster Vaccines (1 of 2) 2010 FOBT 09/14/2016 09/15/2015 [facility]-Breast Cancer Screening 05/23/201804/26, 05/23/2016, 05/08/2013 [facility]-Cervical Cancer Screening 09/14/2018 [facility]-Pap Smear 09/14/2018 09/15/2015 [id number] Vaccine ( season) 2024 [facility]-Influenza Vaccine (Seaso n Ended) 2025 05/08/2013 [facility]- SDOH Screenings 04/09/2025 [facility]-Adult SDOH Screenings 04/09/2025 10/08/2024 [facility]-Lung Cancer Screening 10/03/2025 10/03/2024 [facility]-DTaP,Tdap,and Td Vaccine s (3 - Td or Tdap) 01/31/2028 01/30/2018, 04/03/2008 Colonoscopy 01/15/2034 01/16/2024 [facility]-Colorectal Cancer Screening 01/15/2034 [facility]-RSV Vaccine: 60+ Years o r (1 - 1-dose 75+ series) 12/03/2035 [facility]-HIV Screening Completed 10/03/2024 [facility]-Hepatitis C Screening Completed 10/03/2024 HPV Vaccines Aged Out No longer eligi ble based on patient's age to complete this topic [facility]-HIB Vaccines Aged Out No longer e ligible based on patient's age to complete this topic [facility]-Hepatitis A Vaccines Aged Out No longer eligible based on patient's age to complete this topic [facility]-IPV Vaccines Aged Out No longer e ligible based on patient's age to complete this topic [facility]-Rotavirus Vaccines Aged Out No lo nger eligible based on patient's age to complete this topic Procedures Procedure Name Priority Date/Time Associated Diagnosis Comments BASIC METABOLIC PANEL, PLASMA Routine 10/22/2024 1:32 PM EDT MIESHA (acute kidney injury) (CMS/HCC) BASIC METABOLIC PANEL, PLASMA Routine 10/11/2024 4:00 AM EDT EXTRA TUBE LAVENDER TOP Routine 10/11/19 6:49 AM EDT EXTRA TUBES Routine 10/10/2024 6:49 AM EDT BASIC METABOLIC PANEL, PLASMA Routine 10/10/2024 3:23 AM EDT CBC W/O DIFFERENTIAL Routine 10/09/2024 4:03 AM EDT BASIC METABOLIC PANEL, PLASMA Routine 10/09/2024 4:03 AM EDT MR HEAD W AND WO IV CONTRAST Routine 10/08/2024 12:04 PM EDT ECG ADULT STAT 10/08/2024 6:01 AM EDT PHOSPHORUS, PLASMA Routine 10/07/2024 4: 11 AM EDT MAGNESIUM, PLASMA Routine 10/07/2024 4:1 1 AM EDT COMPREHENSIVE METABOLIC PANEL, PLASMA Routine 10/07/2024 4:11 AM EDT CBC WITH AUTO DIFFERENTIAL Routine 10/07/2024 4:11 AM EDT XR ABDOMEN 1 VIEW Routine 10/06/2024 4:2 3 PM EDT TROPONIN T, HIGH SENSITIVITY, 2 HOUR, PLASMA Timed 10/06/2024 1:13 PM EDT XR CHEST 1 VIEW STAT 10/06/2024 11:18 AM EDT TROPONIN T, HIGH SENSITIVITY, 0 HOUR, PLASMA, REFLEX TO 2 HOUR STAT 10/06/2024 11:[address] HEAD WO IV CONTRAST STAT 10:22 AM EDT PROTHROMBIN TIME(PT) / INR STAT 10/06/2024 10:10 AM EDT CBC W/O DIFFERENTIAL STAT 10/06/2024 10:10 AM EDT COMPREHENSIVE METABOLIC PANEL, PLASMA STAT 10/06/2024 10:10 AM EDT ECG ADULT STAT 10/06/2024 9:44 AM EDT PHOSPHORUS, PLASMA Routine 10/04/2024 4: 08 AM EDT MAGNESIUM, PLASMA Routine 10/04/2024 4:0 8 AM EDT COMPREHENSIVE METABOLIC PANEL, PLASMA Routine 10/04/2024 4:08 AM EDT CBC WITH AUTO DIFFERENTIAL Routine 10/04/2024 4:08 AM EDT MAGNESIUM, PLASMA Add-On 10/03/2024 5:3 1 PM EDT TSH REFLEX FT4 Add-On 10/03/2024 5:31 PM EDT LIPID PROFILE, PLASMA Add-On 10/03/2024 5:31 PM EDT TROPONIN T, HIGH SENSITIVITY, 2 HOUR, PLASMA Timed 10/03/2024 5:[address] ANGIO ABDOMEN PELVIS STAT 10/04/19 4:[address] ANGIO CHEST STAT 10/03/2024 4:44 PM EDT XR CHEST 1 VIEW STAT 10/03/2024 3:55 PM EDT ECG ADULT Timed 10/03/2024 3:54 PM EDT HEMOGLOBIN A1C Add-On 10/03/2024 3:39 PM EDT EXTRA TUBE LAVENDER TOP Routine 10/04/19 3:39 PM EDT EXTRA TUBES Routine 10/03/2024 3:39 PM EDT PROTHROMBIN TIME(PT) / INR STAT 10/03/2024 3:29 PM EDT N-TERMINAL PROBNP, PLASMA STAT 10/03/2024 3:29 PM EDT ED HIV 1/2 ANTIBODY/ANTIGEN SCREEN WITH REFLEX TO HIV I/II DIFFERENTIATION STAT 10/03/2024 3:29 PM EDT ED PROTOCOL HIV 1/2 ANTIBODY/ANTIGEN SCREEN W/REFLEX TO HIV 1/2 ANTIBODY DIFFERENTIATION STAT 10/03/2024 3:29 PM EDT HEPATITIS C ANTIBODY - ED W/REFLEX TO HCV QUANT PCR STAT 10/03/2024 3:29 PM EDT TROPONIN T, HIGH SENSITIVITY, 0 HOUR, PLASMA, REFLEX TO 2 HOUR STAT 10/03/2024 3:29 PM EDT COMPREHENSIVE METABOLIC PANEL, PLASMA STAT 10/03/2024 3:29 PM EDT CBC WITH AUTO DIFFERENTIAL STAT 10/03/2024 3:29 PM EDT ECG ADULT STAT 10/03/2024 3:09 PM EDT ECG ADULT Routine 10/03/2024 2:12 PM EDT Chest pain, unspecified type from Last 3 Months Results * (ABNORMAL) Basic metabolic panel (10/22/2024 1:32 PM EDT) Only the most recent of4 resultswithin the time period is included. Glucose, Plasma 105(H) 74 - 99 mg/dL 10/22/2024 5:09 PM EDT [facility] BUN, Plasma 16 8 - 23 mg/dL 10/22/2024 5:09 PM EDT [facility] Creatinine, Plasma 0.75 0.60 - 1.10 mg/dL 10/22/2024 5:09 PM EDT [facility] BUN/Creatinine Ratio 21 10/22/2024 5:09 PM EDT [facility] Sodium, Plasma 137 136 - 145 mmol/L 10/22/2024 5:09 PM EDT [facility] Potassium, Plasma 4.0 3.6 - 4.9 mmol/L 10/22/2024 5:09 PM EDT [facility] Chloride, Plasma 100 97 - 107 mmol/L 10/22/2024 5:09 PM EDT [facility] CO2, Plasma 27 22 - 29 mmol/L 10/22/2024 5:09 PM EDT [facility] Anion Gap 10 6 - 16 mmol/L 10/22/2024 5:09 PM EDT [facility] Total Calcium, Plasma 9.9 8.9 - 10.2 mg/dL 10/22/2024 5:09 PM EDT [facility] eGFRcr 89.6 mL/min/1.7 3m*2 10/22/2024 5:09 PM EDT [facility] Comment:Reported eGFRcr in m L/min/1.73m2 is based the CKD-EPI 2020 equation that does not use a race coefficient. Blood Venous blood specimen / Unknown Venipuncture / Unknown 10/22/2024 1:32 PM EDT 10/22/2024 1:35 PM EDT Breezy Harkins MD LAB BLOOD ORDERABLES Final Re sult [facility] [address] [place] [address] * [facility] (10/10/2024 6:49 AM EDT) Only the most recent of2 resultswithin the time period is included. Extra Hold for add-ons 10/10/2024 9:01 AM EDT [facility] Comment:Auto resulted. Blood Venous blood specimen / Unknown Venipuncture / Unknown 10/10/2024 6:49 AM EDT 10/10/2024 6:49 AM EDT Contreras Desouza MD LAB BLOOD ORDERABLES Final Resul t [facility] [address] [place] [address] * (ABNORMAL) CBC W/O Differential (10/09/2024 4:03 AM EDT) Only the most recent of2 resultswithin the time period is included. WBC Count 8.92 3.70 - 10.30 10*3/uL LAB HEMATOLOGY METHOD 10/09/2024 4:17 AM EDT [facility] RBC Count 4.30 3.90 - 5.20 10*6/uL LAB HEMATOLOGY METHOD 10/09/2024 4:17 AM EDT [facility] HGB 14.1 11.2 - 15.7 g/dL LAB HEMATOLOGY METHOD 10/09/2024 4:17 AM EDT [facility] HCT 41.0 34.0 - 45.0 % LAB HEMATOLOGY METHOD 10/09/2024 4:17 AM EDT [facility] Platelet Count 249 155 - 369 10*3/uL LAB HEMATOLOGY METHOD 10/09/2024 4:17 AM EDT [facility] MCV 95 79 - 98 fL LAB HEMATOLOGY METHOD 10/09/2024 4:17 AM EDT [facility] MCH 32.8(H) 26.0 - 32.0 pg LAB HEMATOLOGY METHOD 10/09/2024 4:17 AM EDT [facility] MCHC 34.4 30.7 - 35.5 g/dL LAB HEMATOLOGY METHOD 10/09/2024 4:17 AM EDT [facility] RDW 13.4 11.5 - 14.5 % LAB HEMATOLOGY METHOD 10/09/2024 4:17 AM EDT [facility] MPV 8.9 8.8 - 12.5 fL LAB HEMATOLOGY METHOD 10/09/2024 4:17 AM EDT [facility] nRBC 0.0 <=0.0 per 100 WBCs LAB HEMATOLOGY METHOD 10/09/2024 4:17 AM EDT [facility] Blood Venous blood specimen / Unknown Venipuncture / Unknown 10/09/2024 4:03 AM EDT 10/09/2024 4:14 AM EDT Contreras Desouza MD LAB BLOOD ORDERABLES Final Resul t [facility] [address] [place] [address] * MR Head w and wo IV Contrast (10/08/2024 12:04 PM EDT) Anatomical Region Laterality Modality Head Magnetic Resonan ce Impressions 10/08/2024 2:52 PM EDT 1. No definite acute ischemic or hemorrhagic changes. 2. Moderate white matter disease, some of the regions demonstrates a more confluent appearance. This might represent a combination of chronic small vessel ischemia and potentially areas of vasogenic edema, particularly in the parietal periventricular white matter, perhaps related to posterior reversible encephalopathy in this patient with known hypertensive crisis. Clinical correlation and follow-up to document resolution can be helpful. Other findings as above. CRITICAL RESULT: No. COMMUNICATION: Per this written report. Drafted by Dorian Louis MD on 10/08/2024 2:41 PM Final report signed by Dorian Louis MD on 10/08/2024 2:52 PM Narrative 10/08/2024 2:52 PM EDT CLINICAL INDICATION: Mental status change, unknown cause TECHNIQUE: Multiplanar multiecho sequences were performed through the brain utilizing T1 and T2 weighting, as well as either axial susceptibility weighted or gradient echo sequences, and axial diffusion weighted images. Imaging was performed with and without contrast administration: 3.8 mL of Gadavist. COMPARISON: CT head from 10/06/2024 FINDINGS: Diagnostic Quality: Adequate. The ventricles and sulci are normal in size. There are moderate patchy and other confluent areas of hyperintense T2 signal in the subcortical and periventricular white matter bilaterally, some of the more conspicuous regions noted in the parietal periventricular white matter, greater on the left. Brainstem and cerebellum appear unremarkable. No abnormal intracranial enhancement is present. There is no abnormal parenchymal susceptibility artifact or restricted diffusion. There is a tiny 2 mm focus of hyperintense T2 signal and hypoenhancement in the posterior portions of the sella, better seen on series 6 image 16 and series 15 image 13. Vascular Flow Voids: Normal. Paranasal Sinuses and Mastoid Air Cells: There is minimal mucosal thickening in the left maxillary sinus and mild amount of fluid signal in the bilateral mastoid air cells, greater on the left, likely inflammatory. Orbits: No definite masses within the limitations of the study. Extracranial Findings: None. Craniocervical Junction and Skull Base: No tonsillar ectopia or mass is present. Procedure Note Dorian Hayes MD - 10/08/2024 CLINICAL INDICATION: Mental status change, unknown cause TECHNIQUE: Multiplanar multiecho sequences were performed through the brain utilizingT1 and T2 weighting, as well as either axial susceptibility weighted orgradient echo sequences, and axial diffusion weighted images. Imaging wasperformed with and without contrast administration: 3.8 mL of Gadavist. COMPARISON: CT head from 10/06/2024 FINDINGS: Diagnostic Quality: Adequate. The ventricles and sulci are normal in size. There are moderate patchy and other confluent areas of hyperintense Q2nwirvy in the subcortical and periventricular white matter bilaterally,some of the more conspicuous regions noted in the parietal periventricularwhite matter, greater on the left. Brainstem and cerebellum appearunremarkable. No abnormal intracranial enhancement is present. There is no abnormal parenchymal susceptibility artifact or restricteddiffusion. There is a tiny 2 mm focus of hyperintense T2 signal and hypoenhancementin the posterior portions of the sella, better seen on series 6 image 16and series 15 image 13. Vascular Flow Voids: Normal. Paranasal Sinuses and Mastoid Air Cells: There is minimal mucosalthickening in the left maxillary sinus and mild amount of fluid signal inthe bilateral mastoid air cells, greater on the left, likelyinflammatory. Orbits: No definite masses within the limitations of the study. Extracranial Findings: None. Craniocervical Junction and Skull Base: No tonsillar ectopia or mass ispresent. IMPRESSION: 1. No definite acute ischemic or hemorrhagic changes. 2. Moderate white matter disease, some of the regions demonstrates a moreconfluent appearance. This might represent a combination of chronic smallvessel ischemia and potentially areas of vasogenic edema, particularly inthe parietal periventricular white matter, perhaps related to posteriorreversible encephalopathy in this patient with known hypertensive crisis.Clinical correlation and follow-up to document resolution can be helpful.Other findings as above. CRITICAL RESULT: No. COMMUNICATION: Per this written report. Drafted by Dorian Louis MD on 10/08/2024 2:41 PM Final report signed by Dorian Louis MD on 10/08/2024 2:52 PM us Contreras Desouza MD IMG MRI PROCEDURES Final Result * ECG Adult (10/08/2024 6:01 AM EDT) Only the most recent of5 resultswithin the time period is included. EKG DIAGNOSIS CLASS Abnormal MUSE ECG Ventricular Rate 69 BPM MUSE ECG Atrial Rate 69 BPM MUSE ECG LA Interval 150 ms MUSE ECG QRSD Interval 82 ms MUSE ECG QT Interval 426 ms MUSE ECG QTC Interval 456 ms MUSE ECG P [place] 78 degrees MUSE ECG R [place] 76 degrees MUSE ECG T Wave [place] 87 degrees MUSE ECG Diagnosis Normal sinus rhythm MUSE ECG Diagnosis Possible Anteroseptal infarct , age undetermined Need clinical information and correlation MUSE ECG Diagnosis Abnormal ECG MUSE ECG Diagnosis MUSE ECG Diagnosis Confirmed by Charly Méndez ([id number]) on 10/08/2024 8:21:21 AM MUSE ECG 10/08/2024 6:01 AM EDT 10/08/2024 8:21 AM EDT us Nathen Ferreira MD ECG ORDERABLES Final Result MUSE ECG * (ABNORMAL) CBC and Differential (10/07/2024 4:11 AM EDT) Only the most recent of3 resultswithin the time period is included. WBC Count 7.87 3.70 - 10.30 10*3/uL LAB HEMATOLOGY METHOD 10/07/2024 4:28 AM EDT [facility] RBC Count 4.70 3.90 - 5.20 10*6/uL LAB HEMATOLOGY METHOD 10/07/2024 4:28 AM EDT [facility] HGB 15.3 11.2 - 15.7 g/dL LAB HEMATOLOGY METHOD 10/07/2024 4:28 AM EDT [facility] HCT 44.6 34.0 - 45.0 % LAB HEMATOLOGY METHOD 10/07/2024 4:28 AM EDT [facility] Platelet Count 246 155 - 369 10*3/uL LAB HEMATOLOGY METHOD 10/07/2024 4:28 AM EDT [facility] MCV 95 79 - 98 fL LAB HEMATOLOGY METHOD 10/07/2024 4:28 AM EDT [facility] MCH 32.6(H) 26.0 - 32.0 pg LAB HEMATOLOGY METHOD 10/07/2024 4:28 AM EDT [facility] MCHC 34.3 30.7 - 35.5 g/dL LAB HEMATOLOGY METHOD 10/07/2024 4:28 AM EDT [facility] RDW 13.2 11.5 - 14.5 % LAB HEMATOLOGY METHOD 10/07/2024 4:28 AM EDT [facility] MPV 8.8 8.8 - 12.5 fL LAB HEMATOLOGY METHOD 10/07/2024 4:28 AM EDT [facility] nRBC 0.0 <=0.0 per 100 WBCs LAB HEMATOLOGY METHOD 10/07/2024 4:28 AM EDT [facility] Differential Type Automated LAB HEMATOLOGY METHOD 10/07/2024 4:28 AM EDT [facility] Neutrophils % 53 % LAB HEMATOLOGY METHOD 10/07/2024 4:28 AM EDT [facility] Lymphocytes % 33 % LAB HEMATOLOGY METHOD 10/07/2024 4:28 AM EDT [facility] Monocytes % 8 % LAB HEMATOLOGY METHOD 10/07/2024 4:28 AM EDT [facility] Eosinophils % 3 % LAB HEMATOLOGY METHOD 10/07/2024 4:28 AM EDT [facility] Basophils % 2 % LAB HEMATOLOGY METHOD 10/07/2024 4:28 AM EDT [facility] Immature Granulocytes % 1 % LAB HEMATOLOGY METHOD 10/07/2024 4:28 AM EDT [facility] Neutrophils Absolute 4.17 1.60 - 6.10 10*3/uL LAB HEMATOLOGY METHOD 10/07/2024 4:28 AM EDT [facility] Lymphocytes Absolute 2.61 1.20 - 3.90 10*3/uL LAB HEMATOLOGY METHOD 10/07/2024 4:28 AM EDT [facility] Monocytes Absolute 0.64 0.30 - 0.90 10*3/uL LAB HEMATOLOGY METHOD 10/07/2024 4:28 AM EDT [facility] Eosinophils Absolute 0.26 0.00 - 0.50 10*3/uL LAB HEMATOLOGY METHOD 10/07/2024 4:28 AM EDT [facility] Basophils Absolute 0.13(H) 0.00 - 0.10 10*3/uL LAB HEMATOLOGY METHOD 10/07/2024 4:28 AM EDT [facility] Immature Granulocytes Absolute 0.06 0.00 - 0.06 10*3/uL LAB HEMATOLOGY METHOD 10/07/2024 4:28 AM EDT [facility] Blood Venous blood specimen / Unknown Venipuncture / Unknown 10/07/2024 4:11 AM EDT 10/07/2024 4:26 AM EDT Narrative [facility] - 10/07/2024 4:28 AM EDT Therapeutic decision making should be based on absolute values, rather than percentages. us Contreras Desouza MD LAB BLOOD ORDERABLES Final Resul t Performing Organization Address [facility] Phone Number [facility] [address] [place] [address] * Phosphorus (10/07/2024 4:11 AM EDT) Only the most recent of2 resultswithin the time period is included. Phosphorus, Plasma 3.7 2.5 - 4.5 mg/dL 10/07/2024 4:49 AM EDT [facility] Blood Venous blood specimen / Unknown Venipuncture / Unknown 10/07/2024 4:11 AM EDT 10/07/2024 4:24 AM EDT Result Kelton Desouza MD LAB BLOOD ORDERABLES Final Resul t Performing Organization Address [facility] [facility] Co de Phone Number [facility] [address] [place] [address] * Magnesium, Plasma (10/07/2024 4:11 AM EDT) Only the most recent of3 resultswithin the time period is included. Magnesium, Plasma 2.4 1.9 - 2.4 mg/dL 10/07/2024 4:49 AM EDT [facility] Blood Venous blood specimen / Unknown Venipuncture / Unknown 10/07/2024 4:11 AM EDT 10/07/2024 4:24 AM EDT us Contreras Desouza MD LAB BLOOD ORDERABLES Final Resul t [facility] [address] [place] [address] * (ABNORMAL) Comprehensive metabolic panel (10/07/2024 4:11 AM EDT) Only the most recent of4 resultswithin the time period is included. Glucose, Plasma 106(H) 74 - 99 mg/dL 10/07/2024 4:49 AM EDT [facility] BUN, Plasma 25(H) 8 - 23 mg/dL 10/07/2024 4:49 AM EDT [facility] Creatinine, Plasma 0.68 0.60 - 1.10 mg/dL 10/07/2024 4:49 AM EDT [facility] BUN/Creatinine Ratio 37 10/07/2024 4:49 AM EDT [facility] Sodium, Plasma 135(L) 136 - 145 mmol/L 10/07/2024 4:49 AM EDT [facility] Potassium, Plasma 4.6 3.6 - 4.9 mmol/L 10/07/2024 4:49 AM EDT [facility] Chloride, Plasma 103 97 - 107 mmol/L 10/07/2024 4:49 AM EDT [facility] CO2, Plasma 25 22 - 29 mmol/L 10/07/2024 4:49 AM EDT [facility] Anion Gap 7 6 - 16 mmol/L 10/07/2024 4:49 AM EDT [facility] Total Calcium, Plasma 9.4 8.9 - 10.2 mg/dL 10/07/2024 4:49 AM EDT [facility] Total Protein 5.8(L) 6.3 - 7.9 g/dL 10/07/2024 4:49 AM EDT [facility] Albumin, Plasma 3.8 3.5 - 5.2 g/dL 10/07/2024 4:49 AM EDT [facility] AST, Plasma 18 10 - 35 U/L 10/07/2024 4:49 AM EDT [facility] ALT, Plasma 13 10 - 35 U/L 10/07/2024 4:49 AM EDT [facility] Alkaline Phosphatase, Plasma 58 46 - 142 U/L 10/07/2024 4:49 AM EDT [facility] Total Bilirubin, Plasma <0.2(L) 0.2 - 1.1 mg/dL 10/07/2024 4:49 AM EDT [facility] eGFRcr 98.0 mL/min/1.7 3m*2 10/07/2024 4:49 AM EDT [facility] Comment:Reported eGFRcr in m L/min/1.73m2 is based the CKD-EPI 2020 equation that does not use a race coefficient. Blood Venous blood specimen / Unknown Venipuncture / Unknown 10/07/2024 4:11 AM EDT 10/07/2024 4:24 AM EDT us Contreras Desouza MD LAB BLOOD ORDERABLES Final Resul t [facility] [address] [place] [id number] * XR Abdomen 1 View (10/06/2024 4:23 PM EDT) Anatomical Region Laterality Modality Body Digital Radiogra phy Impressions 10/06/2024 4:33 PM EDT No abnormal foreign metallic objects. CRITICAL RESULT: No. COMMUNICATION: Per this written report. Drafted by Marilynn Simms MD on 10/06/2024 4:31 PM Final report signed by Marilynn Simms MD on 10/06/2024 4:33 PM Narrative 10/06/2024 4:33 PM EDT CLINICAL INDICATION: MRI clearance TECHNIQUE: XR ABDOMEN 1 VIEW COMPARISON: CT October 03, 2024 FINDINGS: No gas-filled dilated large or small bowel. Colonic stool burden greatest in the right hemicolon. No pneumatosis or free air. Vascular calcification. Procedure Note Marilynn Simms MD - 10/06/2024 CLINICAL INDICATION: MRI clearance TECHNIQUE: XR ABDOMEN 1 VIEW COMPARISON: CT October 03, 2024 FINDINGS: No gas-filled dilated large or small bowel. Colonic stool burden greatestin the right hemicolon. No pneumatosis or free air. Vascularcalcification. IMPRESSION: No abnormal foreign metallic objects. CRITICAL RESULT: No. COMMUNICATION: Per this written report. Drafted by Marilynn Simms MD on 10/06/2024 4:31 PM Final report signed by Marilynn Simms MD on 10/06/2024 4:33 PM Contreras Desouza MD IMG XR PROCEDURES Final Result * Troponin T, High Sensitivity, 2 Hour, Plasma (10/06/2024 1:13 PM EDT) Only the most recent of2 resultswithin the time period is included. Troponin T, High Sensitivity, 2 Hour 13 <14 ng/L 10/06/2024 1:48 PM EDT [facility] Blood Venous blood specimen / Unknown Venipuncture / Unknown 10/06/2024 1:13 PM EDT 10/06/2024 1:20 PM EDT Marysol Lopez [employer] LAB BLOOD ORDERABLES Final Result [facility] [address] [place] [id number] * XR Chest 1 View (10/06/2024 11:18 AM EDT) Only the most recent of2 resultswithin the time period is included. Anatomical Region Laterality Modality Chest Digital Radiogra phy Impressions 10/06/2024 12:15 PM EDT No acute abnormality of the chest. CRITICAL RESULT: No. COMMUNICATION: Per this written report. Drafted by Peyton Mendoza MD on 10/06/2024 12:12 PM Final report signed by Peyton Mendoza MD on 10/06/2024 12:15 PM Narrative 10/06/2024 12:15 PM EDT CLINICAL INDICATION: chest pain TECHNIQUE: XR CHEST 1 VIEW COMPARISON: None. FINDINGS: Lungs are hyperinflated with interstitial thickening throughout consistent with chronic changes. There is no focal opacification. Heart and mediastinal contours are within normal limits. No pneumothorax. No pleural effusion. Bony structures are unremarkable. Procedure Note Peyton Mendoza MD - 10/06/2024 CLINICAL INDICATION: chest pain TECHNIQUE: XR CHEST 1 VIEW COMPARISON: None. FINDINGS: Lungs are hyperinflated with interstitial thickening throughout consistentwith chronic changes. There is no focal opacification. Heart andmediastinal contours are within normal limits. No pneumothorax. Nopleural effusion. Bony structures are unremarkable. IMPRESSION: No acute abnormality of the chest. CRITICAL RESULT: No. COMMUNICATION: Per this written report. Drafted by Peyton Mendoza MD on 10/06/2024 12:12 PM Final report signed by Peyton Mendoza MD on 10/06/2024 12:15 PM Marysol Lopez APRN IMG XR PROCEDURES Final Re sult * Troponin now and 120 min (10/06/2024 11:08 AM EDT) Only the most recent of2 resultswithin the time period is included. Troponin T, High Sensitivity, 0 Hour 13 <14 ng/L 10/06/2024 11:38 AM EDT [facility] Blood Venous blood specimen / Unknown Venipuncture / Unknown 10/06/2024 11:08 AM EDT 10/06/2024 11:10 AM EDT Marysol Lopez APRN LAB BLOOD ORDERABLES Final Result [facility] [address] [place] [address] * CT Head wo IV Contrast (10/06/2024 10:22 AM EDT) Anatomical Region Laterality Modality Head Computed Tomogra phy Impressions 10/06/2024 11:08 AM EDT No large acute cortical infarct or intracranial hemorrhage. Moderate amount of nonspecific but likely ischemic white matter lesions, asymmetrically greater in the left parietal lobe. In the absence of prior comparison studies, areas of superimposed edema, such as could be seen in processes such as PRES, within any of these areas, would not be excluded. A tiny air bubble in the right cavernous sinus is presumably related to IV placement, but can be correlated clinically. If any further evaluation for an acute infarct, these findings or for the etiology of the patient's symptoms is warranted clinically, an MR scan could be performed if not contraindicated. CRITICAL RESULT: No. COMMUNICATION: Per this written report. Drafted by Conrad Evans MD on 10/06/2024 10:51 AM Final report signed by Conrad Evans MD on 10/06/2024 11:08 AM Narrative 10/06/2024 11:08 AM EDT CLINICAL INDICATION: Headache, new onset (Age >= 51y). According to electronic medical record note from this date the patient has a history of hypertension and coronary artery disease with stents, psychosis and delusions with elevated blood pressure, chest pain and headache. TECHNIQUE: Spiral axial CT images of the head were obtained without contrast administration. Total DLP (Dose-Length Product): 622.64 mGy.cm. Please note: The reported value represents the total of one or more individual components during the CT acquisition on this date and at this time, and as such, the same value may appear in more than one CT report depending on the interpreting/reporting physicians. COMPARISON: None. FINDINGS: Diagnostic Quality: Mildly motion and artifact degraded.. The brain volume is normal for the patient's reported age of 63 years. Sulci are mildly larger in the left posterior frontal and parietal lobes superiorly (image 26 series 5) probably related to mildly asymmetric volume loss. There is no acute large cortical infarct, intracranial hemorrhage or large mass on this noncontrast study. There are moderate amount of nonspecific but likely ischemic white matter lesions, most extensive in the left parietal lobe extending into the posterior frontal region. There is atherosclerotic vascular calcification, greatest in the internal carotid arteries, right more so than left. There is osteopenia and elongation of the vertebrobasilar system. There is a tiny air bubble along the medial aspect of the right cavernous sinus on image 77 series 5, presumably related to IV placement. Soft Tissues: There has been left cataract surgery. Skull: There are no calvarial destructive lesions or fractures. Sinuses and Mastoids: Minimal ethmoid sinus mucosal thickening. Nasal septal deviation towards the left in the nasal cavity with a leftward projecting spur. Nasal septal deviation towards the right anteriorly. Sclerosis of the wall of a right Sisi cell (image 5 series 3) may be related to chronic inflammatory changes. There is a small accessory ostia within the left maxillary sinus medial wall. The mastoid air cells are somewhat underpneumatized bilaterally, with mild opacification of remaining cells on the left. There are degenerative changes of the temporomandibular joints and the atlantodental joint. Procedure Note Conrad Evans MD - 10/06/2024 CLINICAL INDICATION: Headache, new onset (Age >= 51y). According to electronic medical recordnote from this date the patient has a history of hypertension and coronaryartery disease with stents, psychosis and delusions with elevated bloodpressure, chest pain and headache. TECHNIQUE: Spiral axial CT images of the head were obtained without contrastadministration. Total DLP (Dose-Length Product): 622.64 mGy.cm. Please note: The reportedvalue represents the total of one or more individual components during theCT acquisition on this date and at this time, and as such, the same valuemay appear in more than one CT report depending on theinterpreting/reporting physicians. COMPARISON: None. FINDINGS: Diagnostic Quality: Mildly motion and artifact degraded.. The brain volume is normal for the patient's reported age of 63 years.Sulci are mildly larger in the left posterior frontal and parietal lobessuperiorly (image 26 series 5) probably related to mildly asymmetricvolume loss. There is no acute large cortical infarct, intracranial hemorrhage or largemass on this noncontrast study. There are moderate amount of nonspecific but likely ischemic white matterlesions, most extensive in the left parietal lobe extending into theposterior frontal region. There is atherosclerotic vascular calcification,greatest in the internal carotid arteries, right more so than left. Thereis osteopenia and elongation of the vertebrobasilar system. There is a tiny air bubble along the medial aspect of the right cavernoussinus on image 77 series 5, presumably related to IV placement. Soft Tissues: There has been left cataract surgery. Skull: There are no calvarial destructive lesions or fractures. Sinuses and Mastoids: Minimal ethmoid sinus mucosal thickening. Nasalseptal deviation towards the left in the nasal cavity with a leftwardprojecting spur. Nasal septal deviation towards the right anteriorly.Sclerosis of the wall of a right Sisi cell (image 5 series 3) may berelated to chronic inflammatory changes. There is a small accessory ostiawithin the left maxillary sinus medial wall. The mastoid air cells aresomewhat underpneumatized bilaterally, with mild opacification ofremaining cells on the left. There are degenerative changes of thetemporomandibular joints and the atlantodental joint. IMPRESSION: No large acute cortical infarct or intracranial hemorrhage. Moderate amount of nonspecific but likely ischemic white matter lesions,asymmetrically greater in the left parietal lobe. In the absence of priorcomparison studies, areas of superimposed edema, such as could be seen inprocesses such as PRES, within any of these areas, would not beexcluded. A tiny air bubble in the right cavernous sinus is presumably related to IVplacement, but can be correlated clinically. If any further evaluation for an acute infarct, these findings or for theetiology of the patient's symptoms is warranted clinically, an MR scancould be performed if not contraindicated. CRITICAL RESULT: No. COMMUNICATION: Per this written report. Drafted by Conrad Evans MD on 10/06/2024 10:51 AM Final report signed by Conrad Evans MD on 10/06/2024 11:08 AM us Marysol Lopez [employer] IMG CT PROCEDURES Final Re sult * PT-INR (10/06/2024 10:10 AM EDT) Only the most recent of2 resultswithin the time period is included. Prothrombin Time 13.0 12.0 - 14.3 sec 10/06/2024 10:37 AM EDT [facility] INR 1.0 0.9 - 1.1 10/06/2024 10:37 AM EDT [facility] Blood Venous blood specimen / Unknown Venipuncture / Unknown 10/06/2024 10:10 AM EDT 10/06/2024 10:25 AM EDT Narrative [facility] - 10/06/2024 10:37 AM EDT OPTIMAL INR RANGES FOR PATIENT ON ORAL ANTICOAGULANT THERAPY Prevention of venous thromboembolism INR 2.0 to 3.0 In patients with heart disease: Atrial fibrillation INR 2.0 to 3.0 Valvular heart disease INR 2.0 to 3.0 Tissue heart valves INR 2.0 to 3.0 Mechanical prosthetic valves INR 2.5 to 3.5 Prevention of recurrent PR INR 2.5 to 3.5 us Marysol Lopez APRN LAB BLOOD ORDERABLES Final Result [facility] [address] [place] [address] * TSH Reflex FT4 (10/03/2024 5:31 PM EDT) Thyroid Stimulating Hormone, Plasma 1.36 0.40 - 4.20 uIU/mL 10/03/2024 8:18 PM EDT [facility] Blood Venous blood specimen / Unknown Venipuncture / Unknown 10/03/2024 5:31 PM EDT 10/03/2024 5:35 PM EDT us Zachary Wells MD LAB BLOOD ORDERABLES Final Re sult [facility] [address] [place] [address] * (ABNORMAL) Lipid panel (10/03/2024 5:31 PM EDT) Cholesterol, Plasma 133 <200 mg/dL 10/03/2024 8:18 PM EDT [facility] Comment: Cholesterol Reference Range (age >17 years): Desirable <200 mg/dL Borderline 200 to 239 mg/dL Undesirable >239 mg/dL HDL 39(L) >=50 mg/dL 10/03/2024 8:18 PM EDT [facility] Comment: HDL Cholesterol Reference Ranges (age >17 years): Female, acceptable > or = 50 mg/dL Male, acceptable > or = 40 mg/dL Triglycerides, Plasma 109 <150 mg/dL 10/03/2024 8:18 PM EDT [facility] Comment: Triglyceride Reference Range (age >17 years): Desirable: <150 mg/dL Borderline high: 150 to 199 mg/dL High: 200 to 499 mg/dL Very high: >499 mg/dL Increased risk of pancreatitis: >1000 mg/dL Cholesterol/HDL Ratio 3 10/03/2024 8:18 PM EDT [facility] LDL, Calculated 74 <100 mg/dL 8:18 PM EDT [facility] Comment: LDL Cholesterol Reference Range (age >17 years): Optimal: <100 mg/dL Near or above optimal: 100 - 129 mg/dL Borderline high: 130 - 159 mg/dL High: 160 - 189 mg/dL Very high: >189 mg/dL LDL Cholesterol Reference Range (age <18 years): Desirable: <110 mg/dL Borderline: 110 - 129 mg/dL Undesirable: >130 mg/dL LDL Cholesterol is calculated using the Guy/NIH equation. Fasting greater than or equal to 12 hours? Unknown 10/03/2024 8:18 PM EDT [facility] Blood Venous blood specimen / Unknown Venipuncture / Unknown 10/03/2024 5:31 PM EDT 10/03/2024 5:35 PM EDT us Zachary Wells MD LAB BLOOD ORDERABLES Final Re sult [facility] [address] [place] [id number] * CT Angio Abdomen Pelvis (10/03/2024 4:44 PM EDT) Anatomical Region Laterality Modality Abdomen, Pelvis Computed Tomogra phy Impressions 10/03/2024 5:39 PM EDT No evidence of thoracic or abdominal aortic dissection or rupture. Borderline ectasia ascending thoracic aorta measuring up to 4 cm. Atherosclerotic disease and stenosis involving iliac arterial vasculature as above. Coronary artery disease. Background changes COPD/emphysema with mild scarring and atelectasis. No acute focal airspace consolidation. No evidence of GI or obstruction. CRITICAL RESULT: No. COMMUNICATION: Per this written report. Drafted by Jim Gannon MD on 10/03/2024 5:20 PM Final report signed by Jim Gannon MD on 10/03/2024 5:39 PM Narrative 10/03/2024 5:39 PM EDT CLINICAL INDICATION: Aortic aneurysm suspected TECHNIQUE: CTA chest abdomen pelvis performed after administration of IV contrast. Coronal sagittal and 3-D images obtained. TOTAL DLP (Dose-Length Product): 429.59 mGy.cm (accession [id number]), 429.59 mGy.cm (accession [id number]). Please note: The reported value represents the total of one or more individual components during the CT acquisition on this date and at this time, and as such, the same value may appear in more than one CT report depending on the interpreting/reporting physicians. COMPARISON: Chest radiograph 10/03/2024. FINDINGS: Chest: Vasculature: Coronary artery disease. No acute pulmonary embolism. Borderline ectasia ascending thoracic aorta measuring up to 4 cm. Mild mixed atherosclerotic disease of the thoracic aorta. No evidence of thoracic aortic dissection or rupture. Subtle irregularity anterior descending thoracic aorta image 284 series 4 favored to represent flow artifact. Atherosclerotic disease origin of the great vessels without significant stenosis. Cardiac: No significant cardiomegaly. Lungs: Background changes COPD/emphysema with mild scarring and atelectasis. No acute focal airspace consolidation. No suspicious noncalcified pulmonary mass or nodule. Pleural/Pericardial space: No pneumothorax. No pleural effusions. No pericardial effusion. Mediastinum: No significant mediastinal adenopathy. Chest wall: No chest wall hematoma or contusion. Bones: No acute osseous abnormality. Multilevel degenerative endplate change. Abdomen pelvis: Liver: No suspicious focal hepatic mass lesion. Gallbladder:No abnormal gallbladder wall thickening. Spleen: No suspicious splenic mass lesion. Pancreas: No suspicious pancreatic mass lesion. Adrenals: No suspicious adrenal mass lesion. Kidneys: Too small to characterize 6 mm low-attenuation right renal lesion. No hydronephrosis. Bowel/Mesentery: No evidence of small bowel obstruction. Lymph Nodes: No lymphadenopathy within the abdomen or pelvis. Fluid Survey: No significant free fluid within the abdomen and pelvis. Pelvis: The pelvic viscera are unremarkable. Body Wall: Normal. Bones: Mild scoliosis. Osteopenia. Vasculature: Atherosclerotic disease of the abdominal aorta. No evidence of abdominal aortic aneurysm, dissection, or rupture. Celiac axis and SMA appear widely patent. KERRI appears patent. Bilateral renal arteries are patent. Atherosclerotic disease bilateral common iliac arteries with short segment [id number] stenosis left common iliac artery. Atherosclerotic disease proximal left internal iliac artery with components of severe stenosis. Atherosclerotic disease proximal left external iliac artery with mild stenosis. Atherosclerotic disease left common femoral artery without significant stenosis or occlusion. Mixed atherosclerotic disease of the right common iliac artery with mild to moderate stenosis. Atherosclerotic disease origin/proximal right external iliac artery with components of severe stenosis. Atherosclerotic disease origin/proximal right internal iliac artery with mild stenosis. Atherosclerotic disease right common femoral artery without significant stenosis or occlusion. Procedure Note Jim Gannon MD - 10/03/2024 CLINICAL INDICATION: Aortic aneurysm suspected TECHNIQUE: CTA chest abdomen pelvis performed after administration of IV contrast.Coronal sagittal and 3-D images obtained. TOTAL DLP (Dose-Length Product): 429.59 mGy.cm (accession [id number]),429.59 mGy.cm (accession [id number]). Please note: The reported valuerepresents the total of one or more individual components during the CTacquisition on this date and at this time, and as such, the same value mayappear in more than one CT report depending on the interpreting/reportingphysicians. COMPARISON: Chest radiograph 10/03/2024. FINDINGS: Chest: Vasculature: Coronary artery disease. No acute pulmonary embolism.Borderline ectasia ascending thoracic aorta measuring up to 4 cm. Mildmixed atherosclerotic disease of the thoracic aorta. No evidence ofthoracic aortic dissection or rupture. Subtle irregularity anteriordescending thoracic aorta image 284 series 4 favored to represent flowartifact. Atherosclerotic disease origin of the great vessels withoutsignificant stenosis. Cardiac: No significant cardiomegaly. Lungs: Background changes COPD/emphysema with mild scarring andatelectasis. No acute focal airspace consolidation. No suspiciousnoncalcified pulmonary mass or nodule. Pleural/Pericardial space: No pneumothorax. No pleural effusions. Nopericardial effusion. Mediastinum: No significant mediastinal adenopathy. Chest wall: No chest wall hematoma or contusion. Bones: No acute osseous abnormality. Multilevel degenerative endplatechange. Abdomen pelvis: Liver: No suspicious focal hepatic mass lesion. Gallbladder:No abnormal gallbladder wall thickening. Spleen: No suspicious splenic mass lesion. Pancreas: No suspicious pancreatic mass lesion. Adrenals: No suspicious adrenal mass lesion. Kidneys: Too small to characterize 6 mm low-attenuation right renallesion. No hydronephrosis. Bowel/Mesentery: No evidence of small bowel obstruction. Lymph Nodes: No lymphadenopathy within the abdomen or pelvis. Fluid Survey: No significant free fluid within the abdomen and pelvis. Pelvis: The pelvic viscera are unremarkable. Body Wall: Normal. Bones: Mild scoliosis. Osteopenia. Vasculature: Atherosclerotic disease of the abdominal aorta. No evidence of abdominalaortic aneurysm, dissection, or rupture. Celiac axis and SMA appear widelypatent. KERRI appears patent. Bilateral renal arteries are patent. Atherosclerotic disease bilateral common iliac arteries with short [id number] stenosis left common iliac artery. Atherosclerotic disease proximal left internal iliac artery withcomponents of severe stenosis. Atherosclerotic disease proximal leftexternal iliac artery with mild stenosis. Atherosclerotic disease leftcommon femoral artery without significant stenosis or occlusion. Mixed atherosclerotic disease of the right common iliac artery with mildto moderate stenosis. Atherosclerotic disease origin/proximal rightexternal iliac artery with components of severe stenosis. Atheroscleroticdisease origin/proximal right internal iliac artery with mild stenosis.Atherosclerotic disease right common femoral artery without significantstenosis or occlusion. IMPRESSION: No evidence of thoracic or abdominal aortic dissection or rupture. Borderline ectasia ascending thoracic aorta measuring up to 4 cm. Atherosclerotic disease and stenosis involving iliac arterial vasculatureas above. Coronary artery disease. Background changes COPD/emphysema with mild scarring and atelectasis. Noacute focal airspace consolidation. No evidence of GI or obstruction. CRITICAL RESULT: No. COMMUNICATION: Per this written report. Drafted by Jim Gannon MD on 10/03/2024 5:20 PM Final report signed by Jim Gannon MD on 10/03/2024 5:39 PM [facility] CT PROCEDURES Final Result * CT Angio Chest (10/03/2024 4:44 PM EDT) Anatomical Region Laterality Modality Chest Computed Tomogra phy Impressions 10/03/2024 5:39 PM EDT No evidence of thoracic or abdominal aortic dissection or rupture. Borderline ectasia ascending thoracic aorta measuring up to 4 cm. Atherosclerotic disease and stenosis involving iliac arterial vasculature as above. Coronary artery disease. Background changes COPD/emphysema with mild scarring and atelectasis. No acute focal airspace consolidation. No evidence of GI or obstruction. CRITICAL RESULT: No. COMMUNICATION: Per this written report. Drafted by Jim Gannon MD on 10/03/2024 5:20 PM Final report signed by Jim Gannon MD on 10/03/2024 5:39 PM Narrative 10/03/2024 5:39 PM EDT CLINICAL INDICATION: Aortic aneurysm suspected TECHNIQUE: CTA chest abdomen pelvis performed after administration of IV contrast. Coronal sagittal and 3-D images obtained. TOTAL DLP (Dose-Length Product): 429.59 mGy.cm (accession [id number]), 429.59 mGy.cm (accession [id number]). Please note: The reported value represents the total of one or more individual components during the CT acquisition on this date and at this time, and as such, the same value may appear in more than one CT report depending on the interpreting/reporting physicians. COMPARISON: Chest radiograph 10/03/2024. FINDINGS: Chest: Vasculature: Coronary artery disease. No acute pulmonary embolism. Borderline ectasia ascending thoracic aorta measuring up to 4 cm. Mild mixed atherosclerotic disease of the thoracic aorta. No evidence of thoracic aortic dissection or rupture. Subtle irregularity anterior descending thoracic aorta image 284 series 4 favored to represent flow artifact. Atherosclerotic disease origin of the great vessels without significant stenosis. Cardiac: No significant cardiomegaly. Lungs: Background changes COPD/emphysema with mild scarring and atelectasis. No acute focal airspace consolidation. No suspicious noncalcified pulmonary mass or nodule. Pleural/Pericardial space: No pneumothorax. No pleural effusions. No pericardial effusion. Mediastinum: No significant mediastinal adenopathy. Chest wall: No chest wall hematoma or contusion. Bones: No acute osseous abnormality. Multilevel degenerative endplate change. Abdomen pelvis: Liver: No suspicious focal hepatic mass lesion. Gallbladder:No abnormal gallbladder wall thickening. Spleen: No suspicious splenic mass lesion. Pancreas: No suspicious pancreatic mass lesion. Adrenals: No suspicious adrenal mass lesion. Kidneys: Too small to characterize 6 mm low-attenuation right renal lesion. No hydronephrosis. Bowel/Mesentery: No evidence of small bowel obstruction. Lymph Nodes: No lymphadenopathy within the abdomen or pelvis. Fluid Survey: No significant free fluid within the abdomen and pelvis. Pelvis: The pelvic viscera are unremarkable. Body Wall: Normal. Bones: Mild scoliosis. Osteopenia. Vasculature: Atherosclerotic disease of the abdominal aorta. No evidence of abdominal aortic aneurysm, dissection, or rupture. Celiac axis and SMA appear widely patent. KERRI appears patent. Bilateral renal arteries are patent. Atherosclerotic disease bilateral common iliac arteries with short segment lqni-zb-[id number] stenosis left common iliac artery. Atherosclerotic disease proximal left internal iliac artery with components of severe stenosis. Atherosclerotic disease proximal left external iliac artery with mild stenosis. Atherosclerotic disease left common femoral artery without significant stenosis or occlusion. Mixed atherosclerotic disease of the right common iliac artery with mild to moderate stenosis. Atherosclerotic disease origin/proximal right external iliac artery with components of severe stenosis. Atherosclerotic disease origin/proximal right internal iliac artery with mild stenosis. Atherosclerotic disease right common femoral artery without significant stenosis or occlusion. Procedure Note Jim Gannon MD - 10/03/2024 CLINICAL INDICATION: Aortic aneurysm suspected TECHNIQUE: CTA chest abdomen pelvis performed after administration of IV contrast.Coronal sagittal and 3-D images obtained. TOTAL DLP (Dose-Length Product): 429.59 mGy.cm (accession [id number]),429.59 mGy.cm (accession [id number]). Please note: The reported valuerepresents the total of one or more individual components during the CTacquisition on this date and at this time, and as such, the same value mayappear in more than one CT report depending on the interpreting/reportingphysicians. COMPARISON: Chest radiograph 10/03/2024. FINDINGS: Chest: Vasculature: Coronary artery disease. No acute pulmonary embolism.Borderline ectasia ascending thoracic aorta measuring up to 4 cm. Mildmixed atherosclerotic disease of the thoracic aorta. No evidence ofthoracic aortic dissection or rupture. Subtle irregularity anteriordescending thoracic aorta image 284 series 4 favored to represent flowartifact. Atherosclerotic disease origin of the great vessels withoutsignificant stenosis. Cardiac: No significant cardiomegaly. Lungs: Background changes COPD/emphysema with mild scarring andatelectasis. No acute focal airspace consolidation. No suspiciousnoncalcified pulmonary mass or nodule. Pleural/Pericardial space: No pneumothorax. No pleural effusions. Nopericardial effusion. Mediastinum: No significant mediastinal adenopathy. Chest wall: No chest wall hematoma or contusion. Bones: No acute osseous abnormality. Multilevel degenerative endplatechange. Abdomen pelvis: Liver: No suspicious focal hepatic mass lesion. Gallbladder:No abnormal gallbladder wall thickening. Spleen: No suspicious splenic mass lesion. Pancreas: No suspicious pancreatic mass lesion. Adrenals: No suspicious adrenal mass lesion. Kidneys: Too small to characterize 6 mm low-attenuation right renallesion. No hydronephrosis. Bowel/Mesentery: No evidence of small bowel obstruction. Lymph Nodes: No lymphadenopathy within the abdomen or pelvis. Fluid Survey: No significant free fluid within the abdomen and pelvis. Pelvis: The pelvic viscera are unremarkable. Body Wall: Normal. Bones: Mild scoliosis. Osteopenia. Vasculature: Atherosclerotic disease of the abdominal aorta. No evidence of abdominalaortic aneurysm, dissection, or rupture. Celiac axis and SMA appear widelypatent. KERRI appears patent. Bilateral renal arteries are patent. Atherosclerotic disease bilateral common iliac arteries with short sugahpeqzuw-cs-dpbvnwtm stenosis left common iliac artery. Atherosclerotic disease proximal left internal iliac artery withcomponents of severe stenosis. Atherosclerotic disease proximal leftexternal iliac artery with mild stenosis. Atherosclerotic disease leftcommon femoral artery without significant stenosis or occlusion. Mixed atherosclerotic disease of the right common iliac artery with mildto moderate stenosis. Atherosclerotic disease origin/proximal rightexternal iliac artery with components of severe stenosis. Atheroscleroticdisease origin/proximal right internal iliac artery with mild stenosis.Atherosclerotic disease right common femoral artery without significantstenosis or occlusion. IMPRESSION: No evidence of thoracic or abdominal aortic dissection or rupture. Borderline ectasia ascending thoracic aorta measuring up to 4 cm. Atherosclerotic disease and stenosis involving iliac arterial vasculatureas above. Coronary artery disease. Background changes COPD/emphysema with mild scarring and atelectasis. Noacute focal airspace consolidation. No evidence of GI or obstruction. CRITICAL RESULT: No. COMMUNICATION: Per this written report. Drafted by Jim Gannon MD on 10/03/2024 5:20 PM Final report signed by Jim Gannon MD on 10/03/2024 5:39 PM Taz DELA CRUZ IMG CT PROCEDURES Final Result * Hemoglobin A1c (10/03/2024 3:39 PM EDT) Hemoglobin A1c 5.3 <5.7 % 10/04/2024 7:24 AM EDT [facility] Blood Venous blood specimen / Unknown Venipuncture / Unknown 10/03/2024 3:39 PM EDT 10/03/2024 3:39 PM EDT Narrative [facility] - 10/04/2024 7:24 AM EDT HA1C Interpretive Data: Diagnosis of Diabetes: Diabetic > or = 6.5% Pre-diabetic 5.7 to 6.4% Non-diabetic < or = 5.6% Glycemic Targets for Type I and Type II Diabetics: Non- Adults <7.0% Adults <6.0% Children and Adolescents <7.5% Source: [place] [employer]. Standards of medical care in diabetes,2017. Diabetes Care.2017:40 (suppl 1):S1-S135. Zachary eWlls MD LAB BLOOD ORDERABLES Final Re sult [facility] [address] [place] [address] * ED HIV 1/2 Antibody/Antigen Screen w/Reflex to HIV 1/2 Differentiation (10/03/2024 3:29 PM EDT) HIV 1 & 2 Antibody/Antigen Screen Non Reactive Non Reactive 10/03/2024 4:18 PM EDT [facility] Comment:Screening for HIV 1 & 2 antibodies, and P24 antigen is NONREACTIVE. No confirmatory testing is required. Blood Venous blood specimen / Unknown Venipuncture / Unknown 10/03/2024 3:29 PM EDT 10/03/2024 3:37 PM EDT Dank Blake MD LAB BLOOD ORDERABLES Final Res ult [facility] [address] [place] [address] * Hepatitis C Antibody - ED (10/03/2024 3:29 PM EDT) Pathologist [facility] Hepatitis C Antibody Negative Negative 10/03/2024 4:14 PM EDT [facility] Blood Venous blood specimen / Unknown Venipuncture / Unknown 10/03/2024 3:29 PM EDT 10/03/2024 3:38 PM EDT Dank Blake MD LAB BLOOD ORDERABLES Final Res ult Performing Organization Address City/[facility]/ZIP Co de Phone Number [facility] [address] [place] [address] * BNP (10/03/2024 3:29 PM EDT) Pathologist [facility] N-Terminal, PROBNP, Plasma 423 0 - 899 pg/mL 10/03/2024 4:11 PM EDT [facility] Blood Venous blood specimen / Unknown Venipuncture / Unknown 10/03/2024 3:29 PM EDT 10/03/2024 3:37 PM EDT Taz DELA CRUZ LAB BLOOD ORDERABLES Final Resul t [facility] [address] [place] [address] from Last 3 Months Insurance [facility] MEDIC[facility] Advance Directives * Full Code (Latest Code Status on File) Date Activated Date Inactivated Comments 10/06/2024 2:12 PM 10/14/2024 5:26 PM Question Answer Comments I have reviewed the capacity from the link above and, if needed, have updated to appropriate status: Yes * Full Code Date Activated Date Inactivated Comments 10/03/2024 7:34 PM 10/04/2024 7:27 PM Care Teams Telecommunications Repairer Relationship Specialty Start Date End Date Yennifer Mcgee PA [address] [place] [address] PCP - General Psychiatry 10/03/24
--- OUTSIDE RECORDS SUMMARY | 2024-12-05 23:26 | XMS_ITS | Encounter Summary ---
Author Organization [facility] Address [address] [place] [address] Care Team Providers Care Charge Coordinator Name Role Phone Yennifer Mcgee Primary Care Provider [phone] Encounter Details Date Type Department Care Team (Latest Contact Info) Description 10/06/2024 Travel Social History Tobacco Use Types Packs/Day Years Used Date Smoking Tobacco: Every Day Cigarettes Passive Smoke Exposure: Current Smokeless Tobacco: Never Alcohol Use Standard Drinks/Week Comments Not Currently 0 (1 standard drink = 0.6 oz pur e alcohol) Comments Unknown Sex and Gender Information Value Date Recorded Sex Assigned at Not on file Legal Sex Female 2:10 PM EDT Gender Identity Not on file Sexual Orientation Not on file documented as of this encounter Functional Status * Calculated C-SSRS Risk Score (Lifetime/Recent) Answer Date of Assessment Author No Risk Indicated 10/06/2024 8:00 PM EDT Nas Lewis RN * Question Answer Date of Assessment Author 1. Wish to be (Past 1 Month) No 10/06/2024 8:00 PM EDT Nas Lewis RN 2. Non-Specific Active Suici carla Thoughts (Past 1 Month) No 10/06/2024 8:00 PM EDT Gilbert Lewis RN 6. Suicidal Behavior (Lifetime) No 8:00 PM EDT Nas Lewis RN documented as of this encounter Plan of Treatment Upcoming Encounters Date Type Department Care Team (Late st Contact Info) Description 12/19/2024 1:40 PM EDT Office Visit [facility] [address] [place] [address] Brynn Baez, FISHERIES INSPECTOR [address] [place] [address] 12/31/2024 1:30 PM EDT Appointment Medical Office Building Cardiac Diagnostic Testing Medical Office Building Echo Lab [address], [address] [place] [address] 12/31/2024 2:45 PM EDT Office Visit [facility] [place] [address], [address] [place] [address] Dank Carrasquillo MD [address] [place] [address] documented as of this encounter Visit Diagnoses Not on filedocumented in this encounter Additional Health Concerns Assessment Noted Time A Body Mass Index follow-up plan has been documented for the patient 10/14/2024 2:47 PM EDT documented as of this encounter Care Teams Charge Coordinator Relationship Specialty Start Date End Date Yennifer Mcgee PA [address] [place] [address] PCP - General Psychiatry 10/03/24 documented as of this encounter
--- OUTSIDE RECORDS SUMMARY | 2024-12-05 23:26 | XMS_ITS | Encounter Summary ---
Author Organization Healthcare Address [address] [place] [address] Care Team Providers Care Materials Associate Name Role Phone Yennifer Mcgee Primary Care Provider [phone] Amberly Childs LPN Unavailable Unavailable Reason for Visit * Reason Comments TCM Call Encounter Details Date Type Department Care Team (Late st Contact Info) Description 10/09/2024 Patient Outreach [facility] [address], [address] [place] [address] Amberly Childs LPN TCM Call [...] often do you attend chur ch or yarsanism services? Never 10/08/2024 Do you belong to any clubs o r organizations such as alevism groups, unions, fraternal or athletic groups, or [...] more drinks on one occasion? Never 10/08/2024 [facility] - Occupational Stress Questionnaire Answer [...] in the past [address] m [facility], were you homeless or living in a detention (including now)? No 10/08/2024 Utilities Answer Date Recorded In the past 12 months has e [employer], gas, oil, or water [employer] threatened to shut off services in your home? No 10/08/2024 Comments Unknown Sex and Gender Information Value Date Recorded Sex Assigned at Not on file Legal Sex Female 2:10 PM EDT Gender Identity Not on file Sexual Orientation Not on file documented as of this encounter Functional Status * Calculated C-SSRS Risk Score (Lifetime/Recent) Answer Date of Assessment Author No Risk Indicated 10/13/2024 8:00 PM EDT Nathan Terrazas RN * Question Answer Date of Assessment Author 1. Wish to be (Past 1 Month) No 025 8:00 PM EDT Nathan Terrazas RN 2. Non-Specific Active Suici carla Thoughts (Past 1 Month) No 10/13/2024 8:00 PM EDT Nathan Terrazas RN 6. Suicidal Behavior (Lifetime) No 8:00 PM EDT Nathan Terrazas RN documented as of this encounter Miscellaneous Notes * Progress Notes - Amberly Childs LPN - 10/09/2024 9:00 AM EDT Admit Date: 10/06/2024 Discharge Date: Currently inpatient Hospital Service: [facility] Discharge Diagnosis: Hypertensive emergency 10/09/2024 TCM call # N/A Patient Reached: N/A Outcome: Patient is currently inpatient at [facility] Action: N/A Medication changes: N/A CHRISTIANNE appointment: 10/20/2024 @ 1:20pm with Breezy Harkins MD Items to address at CHRISTIANNE: N/A documented in this encounter Plan of Treatment Upcoming Encounters Date Type Department Care Team (Late st Contact Info) Description 12/19/2024 1:40 PM EDT Office Visit [facility] [address] [place] [address] Brynn Baez, MAURIZIO [address] [place] [address] 12/31/2024 1:30 PM EDT Appointment Medical Office Building Cardiac Diagnostic Testing Medical Office Building Echo Lab [address] [place] [address] 12/31/2024 2:45 PM EDT Office Visit [facility] [place] [address], [address] [place] [address] Dank Carrasquillo MD [address] [place] [address] documented as of this encounter Visit Diagnoses Not on filedocumented in this encounter Additional Health Concerns Assessment Noted Time A Body Mass Index follow-up plan has been documented for the patient 10/14/2024 2:47 PM EDT documented as of this encounter Care Teams Materials Associate Relationship Specialty Start Date End Date Yennifer Mcgee PA [address] [place] [id number] PCP - General Psychiatry 10/03/24 Amberly Childs LPN TCM Nurse 10/09/24 11/14/24 documented as of this encounter
--- OUTSIDE RECORDS SUMMARY | 2024-12-05 23:26 | XMS_ITS | Encounter Summary ---
Author Organization Healthcare Address [address] [place] [address] Care Team Providers Care Mid Level Project Manager Name Role Phone Yennifer Mcgee Primary Care Provider [phone] Amberly Childs LPN Unavailable Unavailable Encounter Details Date Type Department Care Team (Late st Contact Info) Description 10/08/2024 Lab Requisition [facility] [address] [place] [address] Yennifer Mcgee PA [address] [place] [address] Routine general medical examination at a health care facility Social History Tobacco Use Types Packs/Day Years [...] often do you attend chur ch or mormon services? Never 10/08/2024 Do you belong to any clubs o r organizations such as hindu groups, unions, fraternal or athletic groups, or [...] more drinks on one occasion? Never 10/08/2024 [facility] - [facility]ational Stress Questionnaire Answer Date [...] any time in the past 12 m [facility], were you homeless or living in a chcf (including now)? No 10/08/2024 Utilities Answer Date Recorded In the past 12 months has th e [employer], gas, oil, or water [employer] threatened to shut off services in your home? No 10/08/2024 Comments Unknown Sex and Gender Information Value Date Recorded Sex Assigned at Not on file Legal Sex Female 2:10 PM EDT Gender Identity Not on file Sexual Orientation Not on file documented as of this encounter Functional Status * AUDIT-C Score Answer Date of Assessment Author 0 10/08/2024 1:46 PM EDT Maria T Feliciano * Question Answer Date of Assessment Author Q1: How often do you have a drink containing alcohol? Never 10/08/2024 1:46 PM EDT Gus Feliciano Q2: How many drinks containing alcohol do you have on a typical day when you are drinking? Patient does not drink 10/08/2024 1:46 PM EDT Gus Feliciano Q3: How often do you have six or more drinks on one occasion? Never 10/08/2024 1:46 PM EDT Gus Feliciano * Calculated C-SSRS Risk Score (Lifetime/Recent) Answer Date of Assessment Author No Risk Indicated 10/11/2024 8:00 PM EDT Samantha Jackson RN * Question Answer Date of Assessment Author 1. Wish to be (Past 1 Month) No 025 8:00 PM SALINAT Samantha Jackson, RN 2. Non-Specific Active Suici carla Thoughts (Past 1 Month) No 10/11/2024 8:00 PM Samantha Britton, RN 6. Suicidal Behavior (Lifetime) No 8:00 PM SALINAT Samantha Jackson, RN documented as of this encounter Plan of Treatment Upcoming Encounters Date Type Department Care Team (Late st Contact Info) Description 12/19/2024 1:40 PM EDT Office Visit [facility] [address] [place] [address] Brynn Baez, LICENSING REPRESENTATIVE [address] [place] [address] 12/31/2024 1:30 PM EDT Appointment Medical Office Building Cardiac Diagnostic Testing Medical Office Building Echo Lab [address], [address] [place] [address] 12/31/2024 2:45 PM EDT Office Visit [facility] [place] [address], [address] [place] [address] Dank Carrasquillo MD [address] [place] [address] documented as of this encounter Visit Diagnoses Diagnosis Routine general medical examination at a health care facility documented in this encounter Additional Health Concerns Assessment Noted Time A Body Mass Index follow-up plan has been documented for the patient 10/14/2024 2:47 PM EDT documented as of this encounter Care Teams Mid Level Project Manager Relationship Specialty Start Date End Date Yennifer Mcgee PA [address] [place] [address] PCP - General Psychiatry 10/03/24 Amberly Childs LPN TCM Nurse 10/09/24 11/14/24 documented as of this encounter
--- OUTSIDE RECORDS SUMMARY | 2024-12-05 23:26 | XMS_ITS | Encounter Summary ---
Author Organization Healthcare Address [address] [place] [address] Care Team Providers Care Core Driller Helper Name Role Phone Yennifer Mcgee Primary Care Provider [phone] Encounter Details Date Type Department Care Team (Latest Contact Info) Description 10/08/2024 Travel Social History Tobacco Use Types Packs/Day [...] 10/08/2024 How often do you attend chur or presybeterian services? Never 10/08/2024 Do you belong to [...] more drinks on one occasion? Never 10/08/2024 [facility] Occupat ional Health - Occupational Stress [...] any time in the past 12 m [facility], were you homeless or living in a nursing home (including now)? No 10/08/2024 Utilities Answer Date Recorded In the past 12 months has e [employer], gas, oil, or water company threatened to [...] Date of Assessment Author No Risk Indicated 10/08/2024 4:00 PM EDT Mary Talbot RN * Question Answer Date of Assessment Author 1. Wish to be (Past 1 Month) No 10/08/2024 4:00 PM SALINAT Mary Talbot RN 2. Non-Specific Active Suici carla Thoughts (Past 1 Month) No 10/08/2024 4:00 PM EDT Fco Talbot RN 6. Suicidal Behavior (Lifetime) No 5 4:00 PM EDT Mary Talbot RN documented as of this encounter Plan of Treatment Upcoming Encounters Date Type Department Care Team (Late st Contact Info) Description 12/19/2024 1:40 PM EDT Office Visit [facility] [address] [place] [address] Brynn Baez, CAPTAIN WAITER [address] [place] [address] 12/31/2024 1:30 PM EDT Appointment Medical Office Building Cardiac Diagnostic Testing Medical Office Building Echo Lab [address], [address] [place] [address] 12/31/2024 2:45 PM EDT Office Visit [facility] [place] [address], [address] [place] [address] Dank Carrasquillo MD [address] [place] [address] documented as of this encounter Visit Diagnoses Not on filedocumented in this encounter Additional Health Concerns Assessment Noted Time A Body Mass Index follow-up plan has been documented for the patient 10/14/2024 2:47 PM EDT documented as of this encounter Care Teams Core Driller Helper Relationship Specialty Start Date End Date Yennifer Mcgee PA [address] [place] [phone] PCP - General Psychiatry 10/03/24 documented as of this encounter
--- OUTSIDE RECORDS SUMMARY | 2024-12-05 23:26 | XMS_ITS | Data Portability ---
Author Organization [facility] Address [address] [place] [address] Care Team Providers Care Clerical Receptionist Name Role Phone AMAYA GARZA OTHER Assessment Encounter Date Assessment Date Assessment LastModified by Organization Details LastModified Time 12/04/2023 12/04/2023 Patient tolerated procedure well. Advised that mild vaginal discharge may occur for 24hrs and spotting for 48hrs. Patient will report passage of clots, onset of profuse bleeding, foul vaginal odor, fever and/or pelvic pain. afiggins Not available 12/04/2023 09:54:02 01/08/2024 01/08/2024 Begin prescribed medications as written. Discussed potential side effects. Call office with questions or concerns. RTO for new or worsening symptoms. [email or web address] Not available 01/09/2024 12:13:53 Plan of Treatment Reminders Order Date Submit Date Provider Last Modified By Organization Details Last Modified Time Details Appointments None abelardo Smart patholo gy study 2023 024 JERICHO [facility], [address], [place], [address], 4 12:13:24 cytolog y report, thin prep, smear or scrapin g, cervica l or vaginal 2023 024 JERICHO [facility], [address], [place], [address], 4 12:12:22 Referral orthope dic surgeon referra l - [facility] 2023 024 fred 12 [facility], [address], [place], [address], 5 08:27:02 gastroe nterolo gist referra l 2023 024 [facility], [address], [place], [address], 4 12:01:09 Procedures None recorde d. Surgeries None recorde d. Imaging XR, foot, 3 or more view 2023 024 [facility] Formerly [facility], [facility] [address], [place], [address], 4 11:05:13 LDCT, chest, for lung cancer screeni ng 2023 024 Replaced by [facility], [address] [facility], [place], [address], 4 07:50:50 DEXA, vertebr al fractur e assessm ent 2023 024 [facility] Formerly [facility], [facility] [address], [place], [address], 4 16:18:58 MAMMO, screeni ng, digital , bilater al 2023 024 [facility] Formerly [facility], [facility] [address], [place], [address], 4 09:46:40 Medication Orders meloxic am 7.5 mg tablet 2023 024 [facility], [address] [place], [address], 4 11:04:36 amoxici llin 500 mg capsule 2023 024 [facility], [address] [place], [address], 4 17:16:36 prednis one 20 mg tablet 2023 024 [facility], [address] [place], [address], 4 17:17:04 Patient TargetsNo targets recorded. Patient Instructions Encounter Date Encounter Id Patient Instructions Last Modified By Organization Details Last Modified Time 11/16/2023 [id number] medical record request* - please send all medical records Not available 11/27/2023 08:30:06 smoking cessatio n counseling, greater than 3 minutes up to 10 minutes Not available 11/16/2023 15:00:30 lung cancer screening eligibility assessment* - Check box for Documentation only Not available 11/27/2023 08:29:50 learning about l kirk cancer screening Not available 11/16/2023 15:00:31 -Discussed all l ab work ordered today, pt consents to all. We will call abnormal test results in 7-10 days. Patient is advised that they will be notified of the availability of normal results from [employer] by phone call, text or email. -LDCT due to heavy smoker for 30+ years -Pt states abnormal colonoscopy in the past but unsure of procedure she had and her exact dx, records requested today Not available 11/19/2023 19:08:42 12/04/2023 [id number] Findings discuss ed with patient. Post-procedure instructions given. Avoid intercourse, douches, tampons x 2 weeks. Take showers until vaginal discharge stops. Advised that a brown/black vaginal discharge is common following the use of Monsel's solution. Call the office if fever, pelvic pain or significant vaginal bleeding occurs. We will call pathology results and recommendations in one week. Plan if pathology confirms colposcopic impression. [email or web address] Not available 12/04/2023 09:54:03 Discussed the spectrum of abnormal pap smears, the relationship to HPV infection, high and low risk HPV types, cervical dysplasia, cervical cancer, and genital warts. Reviewed HPV as a sexually transmitted disease, the natural course of most infections and risk factors for infection. Reviewed the difference between LGSIL and HGSIL, and management strategies for each. Colposcopy procedure reviewed in detail and preformed today. afiggins Not available 12/04/2023 09:54:02 Reason for Referral Wrist Closer Referral for Screening for malignant neoplasm of colon Referring Physician: Bela Richardson, MOBILITY SCOOTER REPAIRER, Encounter Date: 11/16/2023 Orthopedic Surgeon Referral for Injury of foot [facility] Referring Physician: Fahad Maddox, Family Medicine, Encounter Date: 06/10/2024 Results Created Date Observation Date Name Description Value Unit Range Abnormal Flag Note LastModifiedBy Organization Detail LastModifiedTime 11/16/19 24 11/20/2023 IGP, APTIM A HPV, RFX 16/18 ,45 HPV aptima Negati ve negati ve This nucle ic acid ampli ficat ion test detec ts fourt een high- risk HPV types (16,1 8,31, 33,35 ,39,4 5,51, 52,56 ,58,5 9,66, 68) witho ut diffe renti ation . Not Available [facility] ([facility]) [address] [place], [address], 11/21/2023 12:12:22 11/16/19 24 11/21/2023 IGP, APTIM A HPV, RFX 16/18 ,45 diagnosis: Commen t abnormal EPITH ELIAL CELL ABNOR MALIT Y. LOW GRADE SQUAM OUS INTRA EPITH ELIAL LESIO N (LSIL ). Not Available [facility] ([facility]) [address] [place], [address], 11/21/2023 12:12:22 11/16/1911/21/2023 IGP, APTIM A HPV, RFX 16/18 ,45 specimen adequacy: Commen t Satis facto ry for evalu ation . Endoc ervic al and/o r squam ous metap lasti c cells (endo cervi maryellen compo nent) are prese nt. Not Available [facility] ([facility]) [address] [place], [address], 11/21/2023 12:12:22 11/16/19 24 11/21/2023 IGP, APTIM A HPV, RFX 16/18 ,45 clinician provided ICD10: Joel lund Z12.4 Not Available [facility] ([facility]) [address] [place], [address], 11/21/2023 12:12:22 11/16/19 24 11/21/2023 IGP, APTIM A HPV, RFX 16/18 ,45 performed by: Rose Hunt (ASCP ) Not Available [facility] ([facility]) [address] [place], [address], 11/21/2023 12:12:22 11/16/19 24 11/21/2023 IGP, APTIM A HPV, RFX 16/18 ,45 electronical ly signed by: Joel Bazzi MD, Patho logis t Not Available [facility] ([facility]) [address] [place], [address], 11/21/2023 12:12:22 11/16/19 24 11/21/2023 IGP, APTIM A HPV, RFX 16/18 ,45 . . Not Available [facility] ([facility]) [address] [place], [address], 11/21/2023 12:12:22 11/16/19 24 11/21/2023 IGP, APTIM A HPV, RFX 16/18 ,45 pathologist provided ICD10: Joel lund R87.6 12 Not Available [facility] ([facility]) [address] [place], [address], 11/21/2023 12:12:22 11/16/19 24 11/21/2023 IGP, APTIM A HPV, RFX 16/18 ,45 note: Commen t The Pap smear is a scree tabatha test desig gisele to aid in the detec tion of shey ligna nt and malig nant condi tions of the uteri ne cervi x. It is not a diagn ostic proce dure and shoul d not be used as the sole means of detec ting cervi maryellen cance r. Both false -posi tive and false -nega tive repor ts do occur . Not Available [facility] ([facility]) [address] [place], [address], 11/21/2023 12:12:22 11/16/19 24 11/21/2023 IGP, APTIM A HPV, RFX 16/18 ,45 test methodology: Joel t This liqui d based ThinP rep(R ) pap test was scree gisele with the use of an image guide d systjarett m. Not Available [facility] ([facility]) [address] [place], [address], 11/21/2023 12:12:22 11/16/19 24 11/21/2023 IGP, APTIM A HPV, RFX 16/18 ,45 HPV genotype reflex Commen t Crite sumaya not met, HPV Genot ype not perfo rmed. Not Available [facility] ([facility]) [address] [place], [address], 11/21/2023 12:12:22 12/04/19 24 12/06/2023 PATHO LOGY REPOR T . Commen t Mater ial submi tted: . PART A: endoc ervix - ENDOC ERVIC AL CURET TAGE PART B: cervi x - CERVI MARYELLEN BIOPS Y 11:00 . Modif iers: 11:00 PART C: cervi x - CERVI MARYELLEN BIOPS Y 1:00. Modif iers: 1:00 Not Available [facility] ([facility]) [address] [place], [address], 12/06/2023 12:13:24 12/04/19 24 12/06/2023 PATHO LOGY REPOR T . Commen t Clini maryellen histo ry: . ENDOC ERVIC AL CURET TAGE, CERVI MARYELLEN BIOPS Y 11:00 , CERVI MARYELLEN BIOPS Y 1:00 Not Available [facility] ([facility]) [address] [facility], [place], [address], 12/06/2023 12:13:24 12/04/19 24 12/06/2023 PATHO LOGY REPOR T . Commen t Diagn osis: Part A: ENDOC ERVIC AL CURET TAGE: MINUT E FRAGM ENTS OF BENIG N ENDOC ERVIC AL GLAND S, SQUAM OUS EPITH ELIUM , AND MUCUS . Part B: CERVI MARYELLEN BIOPS Y 11:00 : SCANT SQUAM OUS EPITH ELIUM . LOW-G RADE SQUAM OUS INTRA EPITH ELIAL LESIO N (JOVANA 1). Part C: CERVI MARYELLEN BIOPS Y 1:00: SQUAM OUS EPITH ELIUM . FOCAL LOW-G RADE SQUAM OUS INTRA EPITH ELIAL LESIO N (JOVANA 1). [facility] 12/05 1103 Local Not Available [facility] ([facility]) [address] [facility], [place], [address], 12/06/2023 12:13:24 12/04/1912/06/2023 PATHO LOGY REPOR T . Commen t [place] d: . Sammy philip MD, Patho logis t Not Available [facility] ([facility]) [address] [facility], [place], [address], 12/06/2023 12:13:24 12/04/19 24 12/06/2023 PATHO LOGY DAJA Lund . Joel t Gross descr iptio n: . 3 Conta iners , forma yovani-f illed , label ed with patie nt ident ifica tion. Part A: ENDOC ERVIC AL CURET TAGE: RECEI MAGNUS IS AN ENDOC ERVIC AL BRUSH . SCRAP INGS PRODU CE 2.0 X 1.5 X 0.2 CM IN AGGRE GATE OF MUCUS , HEMOR RHAGI C MATER IAL AND SOFT MATER IAL. THE SPECI MEN IS FILTE RED AND ENTIR GABRIEL SUBMI TTED IN CASSE TTE(S ) A1. THE SPECI MEN MAY NOT SURVI VE PROCE SSING . Part B: CERVI MARYELLEN BIOPS Y 11:00 : MULTI PLE FRAGM ENT(S ) OF SOFT MATER IAL, BLOOD , AND MUCUS MEASU RING 1.2 X 0.7 X 0.2 CM IN AGGRE GATE. FILTE RED AND SUBMI TTED IN CASSE TTE(S ) B1. THE SPECI MEN MAY NOT SURVI VE PROCE SSING . Part C: CERVI MARYELLEN BIOPS Y 1:00: MULTI PLE FRAGM ENT(S ) OF SOFT MATER IAL, BLOOD , AND MUCUS MEASU RING 2.0 X 0.4 X 0.2 CM IN AGGRE GATE. FILTE RED AND SUBMI TTED IN CASSE TTE(S ) C1. THE SPECI MEN MAY NOT SURVI VE PROCE SSING . MELLY/Ron MCARTHUR 12/04 0423 Local Not Available [facility] ([facility]) [address] [facility], [place], [address], 12/06/2023 12:13:24 12/04/19 24 12/06/2023 PATHO LOGY DAJA Lund . Joel t Patho logis t provi ded ICD-1 0: N87.0 , N87.0 Not Available [facility] ([facility]) [address] [facility], [place], [address], 12/06/2023 12:13:24 12/04/19 24 12/06/2023 PATHO LOGY DAJA lund CPT . 94980 1, 66105 2, 69929 3 Not Available [facility] ([facility]) [address] [facility], [place], [address], 12/06/2023 12:13:24 11/27/19 24 LDCT, chest , for lung cance r nilesh mays No observ ation record ed. [email or web address] [facility] [address] [facility], [place], [address], 11/27/2023 14:44:41 01/01/20 24 12/25/2023 - scn dig breas t tomos yn jared [facility] Name: ADIA WALTERS [address] [place], [place] [address]a [facility] Phys: [place]URIZIO,[place] [address] : 1960 Age: 63 Sex: F Acct: [id number] Loc: G.MAMM PHONE #: Exam Date: 2023 Status : DEP CLI FAX #: Rad# [id number] Unit# [id number] Admit Date: 2023 EXAMS: CPT CODE: [id number] 902 SCN DIG BREAST TOMOSY N JARED 97773 BILATE RAL DIGITA L SCREEN ING MAMMOG BENITO WITH CAD AND 3-D TOMOSY NTHESI S, 024: CLINIC AL HISTOR Y: Routin e screen ing. No breast proble ms. COMPAR VICKEY: Right diagno stic mammog benito and right breast ultras ound, 011 and bilate ral mammog benito, 011 FINDIN GS: Bilate ral digita l MLO and CC views with CADand 3-D tomosy nthesi s were perfor med by Nadya lund, RT. These demons trate extrem gabriel dense fibrog landul ar parenc hyma, which lowers the sensit ivity of mammog benito. The breast parenc hyma is unchan ged in config uratio n from prior exams. There is an 8 mm nodule high at the 11 to 12 o'cloc k positi on of the right breast , 9 cm above the nipple . This is locate d mid to mechanical drawing teacher ior depth. There is no domina nt mass, mohini ectura l distor tion, or suspic ious calcif icatio n bilate rally IMPRES GONZALO: 1. 8 mm benign -appea ring nodule at the 11 to 12 o'cloc k positi on of the right breast , 9 cm above the nipple . Recomm end right breast ultras ound for furthe r charac teriza tion 2. Stable negati ve left mammog modesta CAT0 - CATEGO RY 0, NEED ADDTL IMAGIN G EVAL US - US RECOMM ENDED DISCLA JENNY: *The patien t with a palpab le abnorm ality, unexpl ained by breast imagin g, should be manage d on clinic al basis by the attend ing physic tolu. *Breas ashely imagin g has a false negati ve rate of 15%. *The patien t was notifi ed by mail of the result s of this examin ation. *The patien t's inform ation was entere d into a remind er system with a target due date for the next mammog modesta. *The mammog [place] was review ed by a radiol ogist and CAD. Electr onical ly Signed by CYNTHIA ALVES MD on 2023 at 1654 Report ed and signed by: CYNTHIA ALVES MD PAGE 1 Signed Report (JUDITH NUED) [facility] Name: ADIA WALTERS [address] Phys: Richardson MAURIZIO,[place] [address] : 1960 Age: 63 Sex: F Acct: [id number] Loc: G.MAMM PHONE #: [phone] Exam Date: 2023 Status : DEP CLI FAX #: Rad# [id number] Unit# [id number] Admit Date: 2023 EXAMS: CPT CODE: [id number] SCN DIG BREAST TOMOSY N JARED 23660 CC: Bela Richardson APRN; FAHAD MADDOX MD Dictat ed Date/T silvana: 2023 (1653) Techno logist : NADYA BECKET T Transc ribed Date/T silvana: 2023 (1653) Transc riptio nist: DR.HAG SAMY Torres onic Signat ure Date/T silvana: 2023 (1653) Printe d Date/T silvana: 2023 (1899) BATCH NO: N/A PAGE 2 Signed Report CC'ed Logic: Orderi ng Provid er: THONG DARNELL Attend ing Provid er: THONG DARNELL Referr ing Provid er: THONG DARNELL Consul ting Provid er: VARSHA PULLIAM [email or web address] , [place], [address], 01/23/2024 16:13:55 01/08/20 24 01/08/2024 DEXA, verte bral fract ure [facility] Ce Name: ADIA WALTERS [address] [place] [address] Phys: [place]anch[place] [address] : 1960 Age: 63 Sex: F Acct: [id number] Loc: GAndieRAD PHONE #: [phone] Exam Date: 2023 Status : REG CLI FAX #: Rad# [id number] Unit# [id number] Admit Date: 2023 EXAMS: CPT CODE: [id number] 522 DEXA BONE DENSIT Y WITH VFA 42917 DEXA SCAN AND LATERA L VERTEB RAL FRACTU RE ASSESS MENT, 024: CLINIC AL HISTOR Y: 63-yea r-old postme nopaus al female with family histor y of osteop orosis and tobacc o use COMPAR VICKEY: None. FINDIN GS: The T-scor e of the AP spine L1-L4 is -2.2. The patien t is consid ered osteop enic accord ing to World Health Organi zation (WHO) criter ia. Fractu re risk is modera te. The T-scor e of the left femora l neck is -2.8. The patien t is consid ered osteop orotic accord ing to World Health Organi zation (WHO) criter ia. Fractu re risk is high. The T-scor e of the right femora l neck is -2.7. The patien t is consid ered osteop orotic accord ing to World Health Organi zation (WHO) criter ia. Fractu re risk is high. The patien t's 10 year probab ility of a major osteop orotic fractu re is 19.5%. The patien t's 10 year probab ility of a hip fractu re is 5.4% A latera l image of the thorac olumba r spine was submit dc for interp retati on. The spine is well visual ized from T4-L4. The visual ized verteb ral body height s and spinal alignm ent are intact . IMPRES GONZALO: 1. Osteop orosis . Pharma cologi maryellen treatm ent, if not alread y prescr ibed, should be starte d. A follow -up bone densit y test is recomm ended in 1 year to monito r respon se to therap y.. 2. No compre ssion fractu re of the visual ized thorac olumba r spine. RECOMM ENDATI ONS: All patien ts should ensure an adequa te intake of dietar y calciu m and vitami n D. The NOF recomm ends adults under age 50 need 1000 mg of calciu m and 400-80 0 IUs of vitami n E daily. Adults 50 and over need 1200 mg of calciu m and 800-10 00 IUs of vitami n D daily. Effect norma therap ies for preven tion of osteop orosis includ e bispho sphona peng and Evista . Hormon e therap y may be an option based on review of risks and benefi ts of treatm ent. PAGE 1 Signed Report (JUDITH NUED) [facility] Name: ADIA WALTERS [facility] [address] [address] Phys: Thong STEVEN,Pancho [place], [place] [address] : 1960 Age: 63 Sex: F Acct: [id number] Loc: CHARLEI PHONE #: [phone] Exam Date: 2023 Status : REG CLI FAX #: Rad# [id number] Unit# [id number] Admit Date: 2023 EXAMS: CPT CODE: [id number] 522 DEXA BONE DENSIT Y WITH VFA 37810 FOLLOW UP: People with diagno sed cases of osteop orosis or a high risk for fractu re should have regula r bone minera l densit y tests. For patien ts eligib le for Medica re, routin e testin g is allowe d once every 2 years. The testin g freque ncy can be increa sed to 1 year for patien ts who have rapidl y progre ssing diseas e, those who are receiv ing or discon tinuin g medica l therap y to restor e bone mass, or have additi onal risk factor s. Electr onical ly Signed by CYNTHIA ALVES MD on 2023 at 1713 Report ed and signed by: CYNTHIA ALVES MD CC: Bela Richardson APRN; FAHAD MADDOX MD Dictat ed Date/T silvana: 2023 (1713) Techno logist : NINA PIERRE N RT(R)( CT) Transc ribed Date/T silvana: 2023 (1713) Transc riptio nist: DR.HAG SAMY Torres onsamson Signat ure Date/T silvana: 2023 (1713) Printe d Date/T silvana: 2023 (2220) BATCH NO: N/A PAGE 2 Signed Report CC'ed Logic: Orderi ng Provid er: THONG DARNELL Attend ing Provid er: THONG DARNELL Referr ing Provid er: THONG DARNELL Consul ting Provid er: VARSHA [email or web address] [address], [address], 07/11/2024 16:31:51 01/09/20 24 01/08/2024 US, elizabeth lund, cele osorio , limit ed [facility] Name: ADIA WALTERS [address] Phys: [place] [address] : 1960 Age: 63 Sex: F Acct: [id number] Loc: G.RAD PHONE #: Exam Date: 2023 Status : DEP CLI FAX #: [phone] Rad# [id number] Unit# [id number] Admit Date: 2023 EXAMS: CPT CODE: [id number] [place] [address] LIMITE D RIGHT BREAST ULTRAS OUND, 024: CLINIC AL HISTOR Y: 8 mm nodule high at the 11 to 12 o'cloc k positi on of the right breast on recent mammog benito COMPAR VICKEY: Screen ing mammog benito, 024. FINDIN GS: Ultras ound of the upper outer quadra nt of the right breast was perfor med by Cynthia lund, RT as well as myself . At the 12 o'cloc k positi on, there is a macrol obulat ed, ellipt ical, anecho ic lesion compat ible with a benign cyst. This measur es 7 x 6 x 2 mm and correl ates with the mammog raphic abnorm ality. The visual ized breast parenc hyma is extrem gabriel dense withou t mohini ectura l distor tion IMPRES GONZALO: 1. 7 mm cyst at the 12 o'cloc k positi on of the right breast accoun ting for the mammog raphic abnorm ality. This is benign and recomm end patien t return to annual mammog benito These findin gs and recomm endati ons were discus sed with the patien t direct ly follow ing the examin ation CAT2 - CATEGO RY 2, BENIGN FINDIN GS 1YR - 1 YEAR Electr onical ly Signed by CYNTHIA ALVES MD on 2023 at 1415 Report ed and signed by: CYNTHIA ALVES MD CC: Bela Richardson APRN; FAHAD MADDOX MD Dictat ed Date/T silvana: 2023 (1415) Techno logist : CYNTHIA ALVES HAIDER Transc ribed Date/T silvana: 2023 (1415) Transc riptio nist: DR.HAG SAMY Torres onic Signat ure Date/T silvana: 2023 (1415) Printe d Date/T silvana: 2023 (1603) BATCH NO: N/A PAGE 1 Signed Report CC'ed Logic: Orderi ng Provid er: THONG DARNELL Attend ing Provid er: THONG DARNELL Referr ing Provid er: THONG DARNELL Consul ting Provid er: VARSHA PULLIAM [email or web address] [address] [place], [address], 01/23/2024 16:13:22 06/10/20 24 06/10/2024 XR, foot, 3 or more view No observ ation record ed. [email or web address] [place] (Centralized Scheduling) [address] [place] [address] [place], [address], 06/12/2024 08:05:55 Result Notes Documentation Provider Name and Address Organization Details Recorded Time Dexa, Vertebral Fracture Assessment : [facility] Name: ADIA WALTERS [address] [place] [address] Phys: [place] [address] : 1960 Age: 63 Sex: F Acct: [id number] Loc: RamanRAD PHONE #: Exam Date: 01/08/2024 Status: REG CLI FAX #: Rad# [id number] Unit# [id number] Admit Date: 01/08/2024 EXAMS: CPT CODE: [id number] DEXA BONE DENSITY WITH VFA 54005 DEXA SCAN AND LATERAL VERTEBRAL FRACTURE ASSESSMENT, 01/08/2024: CLINICAL HISTORY: 63-year-old postmenopausal female with family history of osteoporosis and tobacco use COMPARISON: None. FINDINGS: The T-score of the AP spine L1-L4 is -2.2. The patient is considered osteopenic according to World Health Organization (WHO) criteria. Fracture risk is moderate. The T-score of the left femoral neck is -2.8. The patient is considered osteoporotic according to World Health Organization (WHO) criteria. Fracture risk is high. The T-score of the right femoral neck is -2.7. The patient is considered osteoporotic according to World Health Organization (WHO) criteria. Fracture risk is high. The patient's 10 year probability of a major osteoporotic fracture is 19.5%. The patient's 10 year probability of a hip fracture is 5.4% A lateral image of the thoracolumbar spine was submitted for interpretation. The spine is well visualized from T4-L4. The visualized vertebral body heights and spinal alignment are intact. IMPRESSION: 1. Osteoporosis. Pharmacological treatment, if not already prescribed, should be started. A follow-up bone density test is recommended in 1 year to monitor response to therapy.. 2. No compression fracture of the visualized thoracolumbar spine. RECOMMENDATIONS: All patients should ensure an adequate intake of dietary calcium and vitamin D. The NOF recommends adults under age 50 need 1000 mg of calcium and 400-800 IUs of vitamin E daily. Adults 50 and over need 1200 mg of calcium and 800-1000 IUs of vitamin D daily. Effective therapies for prevention of osteoporosis include bisphosphonates and Evista. Hormone therapy may be an option based on review of risks and benefits of treatment. PAGE 1 Signed Report (CONTINUED) [facility] Ce Name: ADIA WALTERS [address] [place] [address] Phys: [place] [address] : 1960 Age: 63 Sex: F Acct: [id number] Loc: RamanJACOB PHONE #: Exam Date: 01/08/2024 Status: REG CLI FAX #: Rad# [id number] Unit# [id number] Admit Date: 01/08/2024 EXAMS: CPT CODE: [id number] DEXA BONE DENSITY WITH VFA 90471 FOLLOWUP: People with diagnosed cases of osteoporosis or a high risk for fracture should have regular bone mineral density tests. For patients eligible for Medicare, routine testing is allowed once every 2 years. The testing frequency can be increased to 1 year for patients who have rapidly progressing disease, those who are receiving or discontinuing medical therapy to restore bone mass, or have additional risk factors. at 1713 Reported and signed by: MATTHIAS ENCISO MD CC: Bela Richardson APRN; FAHAD MADDOX MD Dictated Date/Time: 01/08/2024 (171) Technologist: NINA WASHINGTON RT(R)(CT) Transcribed Date/Time: 01/08/2024 (1712) Printed Circuit Board Reworker: Electronic Signature Date/Time: 01/08/2024 (171) Printed Date/Time: 01/08/2024 (2219) BATCH NO: N/A PAGE 2 Signed Report CC'ed Logic: Ordering Provider: THONG DARNELL Attending Provider: THONG DARNELL Referring Provider: THONG DARNELL Consulting Provider: VRASHA Richardson APRN [address], [place], [address], [place] [facility] 07/11/2024 16:31:51 Problems Name Problem SNOMED Code Status Onset Date Resolution Date Notes Provider Name and Address Organization Details Recorded Time Coronary arterioscl erosis 56505447 Active 2016 Bela Richardson APRN [address], [place], [address], [place] [facility] 19:06:40 Chronic obstructiv e pulmonary disease 70347203 Active 2016 Bela Richardson APRN [address], [place], [address], [place] [facility] 4 19:06:37 Tobacco user 518430648 Active 2023 Bela Richardson APRN [address], [place], [address], [place] [facility] 4 19:07:14 Screening for malignant neoplasm of respirator y tract Active 2023 Bela Richardson APRN [address], [place], [address], [place] [facility] 4 19:07:09 Nicotine dependence with current use 860356275 Active 2023 Bela Richardson APRN [address], [place], [address], [place] [facility] 4 19:06:59 History of abnormal cervical Papanicola ou smear 160291247 Active 2023 Bela Richardson APRN [address], [place], [address], [place] [facility] 4 19:06:45 Squamous cell carcinoma of anal margin 230165564 Active 2023 Bela Richardson APRN [address], [place], [address], [place] [facility] 4 23:34:55 Condyloma Active anal- shave biopsy Bela Richardson APRN [address], [place], [address], [place] [facility] 4 23:37:35 Placement of stent in cardiac conduit Active 2023 x4 Bela Richardson APRN [address], [place], [address], [place] [facility] 4 23:37:37 Pulmonary emphysema 88650299 Active 2023 Bela Richardson APRN [address], [place], [address], [place] [facility] 4 23:37:07 Mixed anxiety and depressive disorder 211531412 Active 2023 Bela Richardson APRN [address], [place], [address], [place] [facility] 4 23:37:19 Depressive disorder 43884553 Active 2016 Bela Richardson APRN [address], [place], [address], [place] [facility] 4 19:06:43 Hypertensi ve disorder 64128235 Active 2016 Bela Richardson APRN [address], [place], [address], [place] [facility] 4 19:06:49 Irritable bowel syndrome 66998804 Active 2016 Bela Richardson MARUIZIO [address], [place], [address], [place] [facility] 4 19:06:55 Osteoporos is 73213202 Active 2016 Bela Richardson LICENSED PROSTHETIST [address], [place], [address], [place] [facility] 4 19:07:02 Panic disorder 760953118 Active 2016 Bela Richardson MAURIZIO [address], [place], [address], [place] [facility] 4 19:07:05 Gastroente ritis 56015292 Completed 201611/19/2023 Bela RichardsonMAURIZIO [address], [place], [address], [place] [facility] 4 19:06:34 Problem Notes None recorded. Procedures Surgical History Date Name Laterality Status Provider Name and Address Organization Details Recorded Time 01/16/20 24 Date of Last Colonoscopy completed Bela RichardsonMAURIZIO [address], [place], [address], [place] - [facility] 04/22/2024 21:07:03 01/08/20 24 Cerumen Removal completed Korina Mullins APRN [address], [place], [address], [place] [facility] 01/08/2024 17:19:48 01/08/20 24 Most Recent Bone Density completed Belarip Richardson APRN [address], [place], [address], [place] [facility] 06/20/2024 21:23:00 12/21/19 24 Date of Last Mammogram completed Stephy Ramos [place] - [facility] 01/10/2024 13:16:18 12/04/19 24 Colposcopy completed Tara Polo MD [address], [place], [address], [place] [facility] 12/04/2023 10:17:03 12/04/19 24 Colposcopy completed Tara Polo MD [address], [place], [address], [place] [facility] 12/20/2023 13:11:31 11/16/19 24 Date of Last Pap Smear completed Bela Richardson APRN [address], [place], [address], [place] [facility] 11/23/2023 14:08:46 09/11/19 24 Nebulizer tx completed Marah Pratt [place] - [facility] 09/11/2023 14:31:27 10/28/19 22 operation on rectum completed Bela Richardson APRN [address], [place], [address], [place] [facility] 11/25/2023 23:41:01 Adenoidectomy completed Crystal Deon [place] [facility] 08/24/2016 10:44:04 Appendectomy completed Crystal Deon [place] [facility] 08/24/2016 10:44:10 Cardiac Surgery completed Crystal Deon [place] [facility] 08/24/2016 10:44:17 Tonsillectomy completed Crystal Deon [place] [facility] 08/24/2016 10:45:05 Ear Tubes - Tympanostomy Tubes completed Crystal Deon [place] [facility] 08/24/2016 10:45:12 Wrist arthroscopy completed Crystal Deon [place] [facility] 08/24/2016 10:45:18 Imaging Results None recorded. Procedure Notes None recorded. Medical Equipment None Reported. Allergies Allergen ID Allergen Name Allergen Category Reaction Reaction Severity Criticality Documentation Date Start Date Code Code System Note Provider Name and Address Organization Details Recorded Time 841801 neomycin medicatio n Not available Not available Not available 11/25/2023 7299 RxNorm Bela Richardson APRN [address], [place], [address], [place] - [facility] 4 23:38:26 045742 Cipro medicatio n Not available Not available Not available 01/08/202426201 3 RxNorm Bina Porter null, [place] - [facility] 4 16:49:08 39349 clarithro mycin medicatio n Not available Not available Not available 03/31/2016201112 RxNorm Not Available [facility] 6 10:15:40 33507 wheat preparati on food,medi cation Not available Not available Not available 03/31/20162011 35388 52 RxNorm Not Available [facility] 6 10:15:41 95101 Medicinal product containin g cephalosp uzma and acting as antibacte rial agent (product) medicatio n Not available Not available Not available 03/31/20162011 47571 9009 SNOMED Not Available [facility] 6 10:15:41 42706 erythromy jovana medicatio n Not available Not available Not available 03/31/20162011 4053 RxNorm Not Available [facility] 6 10:15:41 94174 Substance with sulfonami de structure and antibacte rial mechanism of action (substanc e) medicatio n Not available Not available Not available 03/31/20162011 58423 8003 SNOMED Not Available [facility] 6 10:15:41 30895 codeine sulfate medicatio n Not available Not available Not available 03/31/20162011 74349 RxNorm Not Available [facility] 6 10:15:41 67129 gentamici n sulfate medicatio n Not available Not available Not available 03/31/20162011 43975 93 RxNorm Not Available [facility] 6 10:15:41 Medications Name Sig Start Date Stop Date Status Note LastModified by Organization Details LastModified Time cyclobenz aprine 10 mg tablet 1 tablet po daily as needed for pain 09/10 completed Not Available Not Available Not Available amoxicill in 500 mg capsule TAKE ONE (1) CAPSULE TWICE A DAY BY ORAL ROUTE FOR 10 DAYS. active Not Available Not Available No t Available carvedilo l 25 mg tablet 1 tablet po 3 times per day 09/10 completed Not Available Not Available Not Available carvedilo l 6.25 mg tablet TAKE TWO (2) TABLETS BY MOUTH TWICE DAILY active Not Available Not Available No t Available Vitamin B-12 1,000 mcg/mL injection solution 1 ml IM please 09/10 completed Not Available Not Available Not Available ipratropi um 0.5 mg-albute rol 3 mg (2.5 mg base)/3 mL nebulizat ion soln INHALE THREE (3) ML FOUR (4) TIMES A DAY BY NEBULIZA TION ROUTE FOR FIVE (5) DAYS. 11/15 completed Not Available Not Available Not Available atorvasta tin 10 mg tablet 01/29 completed Not Available Not Available Not Available valacyclo vir 1 gram tablet TAKE TWO (2) TABLETS BY MOUTH EVERY 12 HOURS (MORNING & NIGHT) FOR ONE (1) DAY. TAKE WITHIN 48 HOURS OF ONSET. active Not Available Not Available No t Available ondansetr on HCl 8 mg tablet one table q 6 hours prn nausea 10/10 completed Not Available Not Available Not Available ondansetr on HCl 4 mg tablet 09/10 completed Not Available Not Available Not Available Medrol (Aram) 4 mg tablets in a dose pack take as directed in a tapering dose 09/10 completed Not Available Not Available Not Available prednison e 20 mg tablet TAKE ONE (1) TABLET EVERY DAY BY ORAL ROUTE FOR FIVE (5) DAYS. active Not Available Not Available No t Available isosorbid e mononitra te ER 30 mg tablet,ex tended release 24 hr 01/29 completed Not Available Not Available Not Available metoprolo l succinate ER 100 mg tablet,ex tended release 24 hr 01/29 completed metoprol ol succinat e 100 mg oral tablet extended release 24 hr;Recor ded Status: Recorded on: 05/06/20 12 2:42PM;U ser: [email or web address] Not Available Not Available Not Available olanzapin e 5 mg tablet take 1 tablet (5 mg) by oral route once daily for 30 days 09/10 completed Not Available Not Available Not Available clonazepa m 1 mg tablet 1 mg po up to four times per day as needed for anxiety 09/10 completed Not Available Not Available Not Available clopidogr el 75 mg tablet 01/29 completed Not Available Not Available Not Available ciproflox acin 500 mg tablet Take 1 tablet every 12 hours by oral route for 10 days. 10/26 completed Not Available Not Available Not Available ondansetr on 8 mg disintegr ating tablet 09/10 completed Not Available Not Available Not Available meloxicam 7.5 mg tablet Take 1 tablet twice a day by oral route after meal(s) for 30 days. active Not Available Not Available No t Available Tessalon Perles 100 mg capsule Take 1 capsule 3 times a day by oral route for 10 days. 09/10 completed Not Available Not Available Not Available ceftriaxo ne 1 gram solution for injection Take 1 g by injectio n route. 09/23 completed Not Available Not Available Not Available Nitrostat 0.4 mg sublingua l tablet active Not Available Not Available Not Available oxycodone -acetamin ophen 10 mg-325 mg tablet 09/02 completed oxycodon e-acetam inophen 10-325 mg oral tablet;R ecorded Status: Recorded on: 05/06/20 12 2:42PM;D iscontin ued Status: Disconti nued on: 09/03/19 16 9:34AM;U ser: [email or web address] Not Available Not Available Not Available dicyclomi ne 20 mg tablet 11/15 completed Not Available Not Available Not Available Flagyl 500 mg tablet take 1 tablet (500 mg) by oral route 2 times per day for 7 days. No sexual intercou rse or drinking while taking this medicati on 09/09 completed Flagyl 500 mg oral tablet;P rescribe Status: Prescrib ed on: 09/03/19 16 12:23PM; User: [email or web address]; EstAndie Templeton on: 09/10/19 16;Pharm acJason ied: 09/03/19 16 12:23PM Not Available Not Available Not Available pantopraz ole 40 mg tablet,de layed release 1 tablet po once daily 09/10 completed Not Available Not Available Not Available lisinopri l 10 mg tablet 01/29 completed Not Available Not Available Not Available gabapenti n 300 mg capsule 01/29 completed Not Available Not Available Not Available mupirocin 2 % topical ointment 09/10 completed Not Available Not Available Not Available mirtazapi ne 15 mg tablet take 1 tablet (15 mg) by oral route once daily before bedtime for 30 days 11/15 completed Not Available Not Available Not Available Aspir-81 mg tablet,de layed release Take 1 tablet every day by oral route. 01/07 completed Not Available Not Available Not Available albuterol sulfate HFA 90 mcg/actua tion aerosol inhaler INHALE TWO (2) PUFFS EVERY FOUR (4) HOURS BY INHALATI ON ROUTE active Not Available Not Available No t Available Lomotil 2.5 mg-0.025 mg tablet Take 1 tablet 4 times a day by oral route as directed for 4 days. 01/29 completed Not Available Not Available Not Available Vitamin D2 1,250 mcg (50,000 unit) capsule take 1 capsule by oral route once daily 09/10 completed Not Available Not Available Not Available ondansetr on 4 mg disintegr ating tablet Take 1 tablet by oral route as directed for 4 days. 01/29 completed Not Available Not Available Not Available cefdinir 300 mg capsule 01/29 completed Not Available Not Available Not Available fluticaso ne propionat e 50 mcg/actua tion nasal spray,[facility] 11/15 completed Not Available Not Available Not Available bupropion HCl XL 150 mg 24 hr tablet, extended release take 3 tablets by oral route daily for 30 days 09/10 completed Not Available Not Available Not Available TriLyte With Flavor Packets 420 gram oral solution 09/10 completed Not Available Not Available Not Available nitrofura ntoin monohydra te/macroc rystals 100 mg capsule 01/29 completed Not Available Not Available Not Available Cipro one bid 10/10 completed cipro 250 mg.;Lionel rded Status: Recorded on: 05/09/20 15 10:00AM; Disconti nued Status: Disconti nued on: 09/03/19 16 9:34AM;U ser: [email or web address]; Est. Completi on: 05/19/20 15;Indic ation: sinusi - (-5) Not Available Not Available Not Available Coreg one bid 09/02 completed coreg 6.25 mg;Recor ded Status: Recorded on: 05/07/20 12 9:44PM;D iscontin ued Status: Disconti nued on: 09/03/19 16 9:34AM;U ser: [email or web address]; Est. Completi on: 06/06/20 12;Indic ation: htn - (-5) Not Available Not Available Not Available Amoxil one qid 04/28 completed amoxil 250 mg.;Lionel rded Status: Recorded on: 04/09/20 14 1:17PM;D iscontin ued Status: Disconti nued on: 04/28/20 14 11:36AM; User: sue EstAndie Templeton on: 04/16/20 14;Indic ation: infect - (-5) Not Available Not Available Not Available Prednison e (Aram) as directed 04/28 completed predison e dospkg 5 mg.;Lionel rded Status: Recorded on: 04/09/20 14 1:17PM;D iscontin ued Status: Disconti nued on: 04/28/20 14 11:36AM; User: sue EstAndie Templeton on: 04/15/20 14;Indic ation: leg bites - (-5) Not Available Not Available Not Available Atarax one tid prn itching 09/02 completed atarax 25 mg.;Lionel rded Status: Recorded on: 05/27/20 14 9:26PM;D iscontin ued Status: Disconti nued on: 09/03/19 16 9:34AM;U ser: sue Est. Completi on: 06/24/20 14;Indic ation: itching - (-5) Not Available Not Available Not Available prednison e increasi ng decreasi ng dosage 03/04 completed predison e 5 mg.;Lionel rded Status: Recorded on: 05/27/20 14 9:26PM;D iscontin ued Status: Disconti nued on: 03/04/20 15 8:38AM;U ser: sue Est. Completi on: 06/03/20 14;Indic ation: itching - (-5) Not Available Not Available Not Available Keflex one tid 05/27 completed keflex 500 mg.;Lionel rded Status: Recorded on: 04/28/20 14 11:36AM; Disconti nued Status: Disconti nued on: 05/27/20 14 9:26PM;U ser: [email or web address]; Est. Completi on: 05/08/20 14;Indic ation: cough - (-5) Not Available Not Available Not Available Ranexa 500 mg tablet,ex tended release 1 tablet twice per day 09/10 completed Not Available Not Available Not Available calcium 600 mg (as carbonate )-vitamin D3 10 mcg (400 unit) tablet TAKE TWO (2) TABLETS EVERY DAY BY ORAL ROUTE active Not Available Not Available No t Available morphine ER 50 mg capsule,e xtended release pellets 09/02 completed morphine 50 mg oral capsule, extend.r elease pellets; Recorded Status: Recorded on: 05/06/20 12 2:42PM;D iscontin ued Status: Disconti nued on: 09/03/19 16 9:34AM;U ser: [email or web address] Not Available Not Available Not Available peg 3350-elec trolytes 236 gram-22.7 4 gram-6.74 gram-5.86 gram solution TAKE ONE (1) KIT PER PHYSICIA N INSTRUCT IONS 01/07 completed Not Available Not Available Not Available zoledroni c acid 5 mg/100 mL in mannitol 5 %-water intraveno us piggybck INJECT 100 ML INTRAVEN OUSLY EVERY YEAR active Not Available Not Available No t Available Amitiza 8 mcg capsule 09/10 completed Not Available Not Available Not Available Effient 5 mg tablet take 1 tablet (5 mg) by oral route once daily 01/29 completed Effient 5 mg oral tablet;R ecorded Status: Recorded on: 09/03/19 16 9:35AM;U ser: [email or web address] Not Available Not Available Not Available Solu-Medr ol (PF) 125 mg/2 mL solution for injection Take 125 mg by injectio n route. 09/23 completed Not Available Not Available Not Available Tussin DM Cough and Chest one tsp qid prn 04/28 completed robituss in dm standard ;Recorde d Status: Recorded on: 05/07/20 12 9:44PM;D iscontin ued Status: Disconti nued on: 04/28/20 14 11:36AM; User: adrianna; Est. Completi on: 05/14/20 12;Indic ation: cough - (-5) Not Available Not Available Not Available Ceci-D one bid 09/02 completed ceci d 12 hr.;Lionel rded Status: Recorded on: 05/09/20 15 10:00AM; Disconti nued Status: Disconti nued on: 09/03/19 16 9:34AM;U ser: [email or web address]; Est. Completi on: 05/16/20 15;Indic ation: sinus - (-5) Not Available Not Available Not Available Vitals Date Recorded Body height Body mass index (BMI) Body weight Systolic blood pressure Diastolic blood pressure Provider Name and Address Organization Details Last Updated DateTime 11/16/2023 152.4 cm 18 kg/m2 02444.5 g 138 mm[Hg] 82 mm[Hg] Stephy [place] - [facility] 4 14:33:08 Date Recorded Body height Body mass index (BMI) Body weight Systolic blood pressure Diastolic blood pressure Provider Name and Address Organization Details Last Updated DateTime 12/04/2023 152.4 cm 18 kg/m2 48698.5 g 132 mm[Hg] 84 mm[Hg] Nathanael Bea[place]uc[place]is [place] - [facility] 4 09:54:21 Date Recorded Body height Body mass index (BMI) Body weight Body temperature Heart rate Oxygen saturation Oxygen saturation in Arterial blood by Pulse oximetry Systolic blood pressure Diastolic blood pressure Systolic blood pressure Diastolic blood pressure Provider Name and Address Organization Details Last Updated DateTime 4 152.4 cm 18.1 kg/m2 92626.6 5 g 98.6 [degF] 69 /min 95 % 95 % 168 mm[Hg] 94 mm[Hg] 174 mm[Hg] 97 mm[Hg] Bina Porter [place] - [facility] 4 16:53:07 Date Recorded Body height Body mass index (BMI) Body weight Body temperature Heart rate Oxygen saturation Oxygen saturation in Arterial blood by Pulse oximetry Respiratory rate Systolic blood pressure Diastolic blood pressure Provider Name and Address Organization Details Last Updated DateTime 4 152.4 cm 18 kg/m2 02714.5 g 97.8 [degF] 59 /min 98 % 98 % 18 /min 179 mm[Hg] 98 mm[Hg] Yamileth merchant [place] - [facility] 4 13:56:30 Date Recorded Body height Body mass index (BMI) Body weight Body temperature Heart rate Oxygen saturation Oxygen saturation in Arterial blood by Pulse oximetry Respiratory rate Systolic blood pressure Diastolic blood pressure Provider Name and Address Organization Details Last Updated DateTime 4 152.4 cm 18.6 kg/m2 23829.6 8 g 98 [degF] 73 /min 98 % 98 % 18 /min 140 mm[Hg] 82 mm[Hg] Yamileth merchant [place] - [facility] 4 10:00:11 Social History Question Answer Notes LastModified by Tivra ion Details LastModified Time Tobacco Smoking Status Current Every Day Smoker Juhi Chavarria greyson [place] - [facility] 08/24/2016 10:43:12 Able To Swim? Yes Information not available 08/24/2016 Do You Have An Advance Directive? No Information not available 09/11/2023 Do You Wear A Helmet When Biking? No Information not available 08/24/2016 Are You Blind Or Do You Have Difficulty Seeing? No Information not available 08/24/2016 What Is Your Level Of Caffeine Consumption? Occasional Information not available 09/11/2023 How Much Tobacco Do You Chew? None [email or web address] Information not available 10/10/2016 In The 14 Days Before Symptom Onset, Have You Had Close Contact With A Laboratory-confi rmed COVID-19 While That Case Was Ill? No [email or web address] Information not available 11/16/2023 In The 14 Days Before Symptom Onset, Have You Had Close Contact With A Person Who Is Under Investigation For COVID-19 While That Person Was Ill? No Information not available 11/16/2023 Have You Been To An Area Known To Be High Risk For COVID-19? No [email or web address] Information not available 11/16/2023 Are You Deaf Or Do You Have Serious Difficulty Hearing? No Information not available 08/24/2016 What Type Of Diet Are You Following? REGULAR Information not available 08/24/2016 Have You Processed Blood Or Body Fluids From An Ebola Virus Disease Patient Without Appropriate PPE? No [email or web address] Information not available 11/16/2023 Do You Reside In Or Have You Traveled To An Area Where Ebola Virus Transmission Is Active? No [email or web address] Information not available 11/16/2023 What Is The Highest Grade Or Level Of School You Have Completed Or The Highest Degree You Have Received? [id number] [email or web address] Information not available 11/16/2023 Swimming/diving No Informati on not available 10/10/2016 Have There Been Any Changes To Your Family Or Social Situation? Yes Has Moved Back To [place] From [place] Information not available 09/11/2023 What Is The Fluoride Status Of Your Home? Fluoridated Information not available 09/11/2023 Hard Of Hearing Or Deaf In One Or Both Ears? No Information not available 08/24/2016 Have You Recently Or Are You Planning To Travel To An Area With Zika Virus? No [email or web address] Information not available 11/16/2023 Legally Blind In One Or Both Eyes? No Information not available 08/24/2016 Do You Have A Medical Power Of Security Compliance Specialist? No Information not available 09/11/2023 What Was The Date Of Your Most Recent Tobacco Screening? 09/11/2023 Information not available 09/11/2023 How Many Children Do You Have? 1 [email or web address] Information not available 11/16/2023 What Is Your Current Pack Years? [email or web address] Information not available 09/11/2023 What Is Your Relationship Status? Information not available 08/24/2016 Seat Belts Used Routinely Yes Information not available 08/24/2016 Are You Sexually Active? No [email or web address] Information not available 11/16/2023 Smoke Alarm In Home Yes [email or web address] Information not available 10/10/2016 Do You Have Smoke And Carbon Monoxide Detectors In Your Home? Yes Information not available 09/11/2023 At What Age Did You Start Smoking Tobacco? 16 Information not available 09/11/2023 Are You Passively Exposed To Smoke? Yes [email or web address] Information not available 10/10/2016 How Much Tobacco Do You Smoke? 2 PPD Information not available 09/11/2023 General Stress Level Medium [email or web address] Information not available 10/10/2016 Do You Use Sunscreen Routinely? No [email or web address] Information not available 10/10/2016 Has Tobacco Cessation Counseling Been Provided? Yes Information not available 09/11/2023 On What Date Was Tobacco Cessation Counseling Provided? 09/11/2023 Information not available 09/11/2023 How Many Years Have You Smoked Tobacco? 46 Information not available 09/11/2023 Do You Have Difficulty Walking Or Climbing Stairs? No Information not available 08/24/2016 Do You Want To Talk About Contraception Or Prevention During Your Visit Today? No - This Question Does Not Apply To Me/I Prefer Not To Answer [email or web address] Information not available 11/16/2023 Do You Have Any Future Plans To Get ? No, I Don't Want To Become [email or web address] Information not available 11/16/2023 Sex: Female Functional Status Question Answer Note LastModified by Organizat ion Details LastModified Time Do you use any illicit or recreational drugs? No Information not available 09/11/2023 Do you or have you ever used any other forms of tobacco or nicotine? No Information not available 09/11/2023 What is your level of alcohol consumption? None Information not available 09/11/2023 Are you currently employed? No Retired Information not available 11/16/2023 Do you have transportation difficulties? No Information not available 09/11/2023 What is your status? Not [email or web address] Information no t available 11/16/2023 Are you able to walk? [email or web address] Information not available 09/11/2023 Do you have difficulty doing errands alone? No Information not available 08/24/2016 Are you able to care for yourself? Yes Information n ot available 08/24/2016 Do you have difficulty dressing or bathing? No Information not available 08/24/2016 What is your exercise level? Occasional [email or web address] Information not available 10/10/2016 Mental Status Question Answer Note LastModified by Organizat ion Details LastModified Time Do you feel stressed (tense, restless, nervous, or anxious, or unable to sleep at night)? [id number] Information not available 09/11/2023 Do you have difficulty concentrating, remembering or making decisions? No Information no t available 08/24/2016 Family History Relationship Description Onset Age of this Age Resolved Age Notes LastModified by Organization Details LastModified Time Mother Dissection of aorta Not available 2016 10:42:13 Mother Myocardial infarction Not available 08/24 10:42:53 Maternal Grandmother Goiter Not available 08/24 10:42:25 Unspecified Relation Hypertensive disorder Not available 2016 10:42:37 Father Neoplasm of lung Not available 2016 10:42:46 Medical History Condition Response Panic Disorder Y Irritable Bowel Syndrome Y Hypertension Y Depression Y Osteoporosis Y Gynecological History Statement/Question Response Abnormal Pap Yes Date of Last LDCT 11/26/2023 Date of Last Mammogram 12/21/2023 On BCP's at Conception? N STIs/STDs N Colposcopy 12/04/2023 Current Control Method Menopause Age at First Child 25 Last Annual Exam/Provider 11/16/2023D If Post Menopausal, Age at Menopause 40 Date of Last Colonoscopy 01/16/2024 Most Recent Bone Density 01/08/2024 Sexually Active? N Menses Monthly N Date of Last Pap Smear 11/16/2023 Sexual Problems? N Obstetrics History GPAL:G 1 P 1 0 0 1 Type Value Full Term 1 Living 1 Total 1 Immunizations Vaccine Type Date Status Note Provider Nam e and Address Organization Details Recorded Time Tdap 8 completed Marah rubi, RAFI - [facility] 09/11/2023 14:03:52 influenza, seasonal, intradermal, preservative free 3 completed RAFI Nickerson - [facility] 09/11/2023 14:03:52 Past Encounters Encounter ID Performer Location Encounter Start Date Encounter Closed Date Diagnosis/Indication Diagnosis SNOMED-CT Code Diagnosis ICD10 Code Diagnosis Note [id number] Vandana Horner APRN [facility] [address] [place] [address] 08/24/2016 10:33:16 08/24/2016 11:22:03 Fatigue 79502404 R53.83 Pansinusitis 472782321 J 32.4 Nausea 642067974 R11.0 [id number] Huey Boles MD [address] [place] [address] 10/10/2016 12:12:42 10/10/2016 14:50:58 Irritable bowel syndrome 30750143 K58.9 Gastroenteritis 36188777 K52.9 [id number] Vandana Horner APRN [address] [place] [address] 06/06/2017 14:45:52 06/06/2017 16:08:30 Body mass index less than 20 201246238 Z68.1 Lower resp iratory tract infection 70250295 J22 [id number] Fahad Maddox MD [address] [place] [address] 09/11/2023 13:40:55 09/11/2023 14:55:24 Pharyngitis 650937250 J02.9 Underweight 998725119 R6 3.6 Low-pitched rhonchi 5354 1006 R09.89 Tobacco user 502292736 Z 72.0 Influenza- like illness 24012914 B34.9 [id number] Fahad Maddox MD [address] [place] [address] 09/24/2023 13:07:08 09/24/2023 13:56:34 Chronic obstructive pulmonary disease 16574836 J44.9 Acute exac erbation of chronic obstructive pulmonary disease 602030486 J44.1 [id number] MAURIZIO Carcamo MOBILITY SCOOTER REPAIRER [address] [place] [address] RAFI Carrillo [address] 11/16/2023 14:19:36 11/16/2023 15:05:45 Routine gynecologic examination done 3081917374 9101 Z01.419 Depression screening 171 089770 Z13.31 PHQ-9 completed today. Diet education 66527747 Z71.3 Eat a well balanced diet, avoid large amounts fried/fatt y foods Counseling 080867012 Z71 .82 Exercise counselyovani g. Patient encouraged to exercise 30 minutes 5 days a week. Examinatio n of blood pressure 174620468 Z01.30 Vaccine de clined by patient 3518644749 02 Z28.21 Pt declined flu vaccine today. Screening for malignant neoplasm of breast 007672709 Z12.39 Screening for malignant neoplasm of colon 990561732 Z12.11 Screening for malignant neoplasm of cervix 319478705 Z12.4 Patient ar dical record not available 693247015 Z76.89 Screening for osteoporosis 983139521 Z13.820 Tobacco user 071445830 Z 72.0 Screening for malignant neoplasm of respiratory tract 944234633 Z12.2 Nicotine d ependence with current use 793015973 F17.210 Current tobacco user History of abnormal cervical Papanicolaou smear 043352859 Z87.42 Venereal d isease screening 976451476 Z11.3 [id number] MD Charu [place] MOBILITY SCOOTER REPAIRER [facility] RAFI Carrillo [address] 12/04/2023 09:37:53 12/04/2023 10:18:18 Low grade squamous intraepithelial lesion on cervical Papanicolaou smear 8824572765 9105 R87.370 [id number] Korina Mullins APRN [address] [place] [address] 01/08/2024 16:25:37 01/08/2024 17:17:14 Impacted cerumen in left ear 4553263487 009816 H61.22 Acute otit is media of left ear with effusion 0920060482 8106728 H65.294 [id number] Fahad Maddox MD [address] [place] [address] 04/07/2024 13:47:57 04/07/2024 14:37:00 Abdominal pain 13222979 R10.9 Pt following with GI for same, EGD done recently with no results available at this time [id number] Fahad Maddox MD [address] [place] [address] 06/10/2024 09:43:53 06/10/2024 11:05:12 Injury of foot 055170899 S99.922A Health Concerns Section Related Observation LastModified by Organization Detai ls LastModified Time None Recorded Concern Status LastModified by Organization Details LastModified Time None Recorded Advance Directives Directive N: Payers Insurance Date Sequence Insurance Name Policy Number Policy Evans Covered Member ID Evans Member ID Guarantor Name 07/23/2024 1 JACIEL (MEDICARE REPLACEMENT/A DVANTAGE - PPO) [id number] Adia Walters [id number] Adia Walters Notes Date Note Type Note Provider Name and Address Organization Details Recorded Time 11/16/2023 text/html Annual - MOBReported bypatient.History:L ast annual exam: unsure; no gynecologic complaints Current Contraception:Postm enopausal Preventive measures:Encourage self breast examination; Encourage regular exercise; Encourage no tobacco use; Followed with yearly pap smears;History of abnormal pap smear/cervical dysplasia;Needs to schedule mammogram;Needs to schedule colonoscopy; All immunization are currentNotes:Pt mentions she had a procedure in [place] that may have been rectal cancer or precancerous cells found in rectum- records requested todayPt has had abnormal mammogram and pap smears in the past.Found last pap report in [facility]- 2019She lives some months in [place] during the year. She plans to go back soon after all of her annual testing is complete and normal.Will review records and update chart when they are available! Bela Richardson, MAURIZIO [address], [place], [address], [facility] - [facility] 11/19/2023 19:13:32 12/04/2023 text/html Patient in for colposcopy/biopsy. Patient denies any other symptoms. She has a hx of anal dysplasia requiring excision 3 years ago in [place]. She describes having stitches and a rough recovery. She has a hx of a LEEP procedure No bleeding, urinary issues or bowel issues today. Traa Polo MD [address], [place], [address], [place] - [facility] 12/04/2023 10:17:39 01/08/2024 text/html Patient presents with c/o left ear pain and cough x 1 week.Has been irrigating left ear with peroxide with some benefit.Denies chest pain, SOA, fever, and n/v/d. Korina Mullins APRN [address], [place], [address], [place] - [facility] 01/09/2024 12:13:58 04/07/2024 text/html Pt presents to request discussion of tests done by GI and ObGyn however these results have not been sent to this office at this time. Pt has heard nothing from these providers per her report. Explained circumstance and her need to get in touch with these offices for discussion of her results. She is understanding and agreeable. Fahad Maddox MD [address], [place], [address], [facility] - [facility] 04/07/2024 15:26:44 06/10/2024 text/html Pt presents for left foot pain after trauma, Pt states tripped over my own foot 2 days prior with bruising and swelling. describes pain as dull and grinding, without radiation, constant with a waxing and waning course, worst on top of foot, associated swelling all around foot , relieved by rest, NSAIDs, warmth. Denies recent imaging. Endorses weakness associated with pain, swelling, bruising but denies new or worsening focal neurologic deficits. Fahad Maddox MD [address], [place], [address], [facility] - [facility] 06/10/2024 17:43:54 OBGyn Episode Ob Episode Information Episode Created Date Number of Fetuses Patient Bloodtype Patient rh Status Prepregnancy Weight lbs Domestic Partner Domestic Partner Phone Father Name Nut Steamer Status 11/16/19 24 1 CLOSED Fetus Data First Name Last Name Admitted to NICU Weight (g) Sex Living Outcome Pediatric Complications Fetus ID Race Codes Race Delivery Type F Full Term [id number] Vaginal Gabriel Calculation Initial Gabriel Date Initial Exam Date Initial Exam Provider Initial Ultrasound Date Last Menstrual Period Date Ultra Sound Weeks Gestation 0 Eighteen To Twenty Week Gabriel Update Ultra Sound Date Fundal Height At Umbil Quickening Date Ultra Sound Latest Weeks Gestation Final Gabriel Confirmed By Final Gabriel Confirmed Date Final Gabriel Date Ultra Sound Latest Days Gestation 0 0 Menstrual History Last Menstrual Date Menses Monthly On Bcp Conception Prior Menses Frequency Hcg Plus Date Menarche Onset Age Delivery Information Delivery Date Delivery Type Labor Anesthesia Weeks Gestation Incision Type Labor Labor Length Hrs Delivered By Post Complications Tubal Sterilization Discharge Date Comments 6 Discharge Information Feeding Method Contraceptive Method Maternal HG B and HCT Levels
--- OUTSIDE RECORDS SUMMARY | 2024-12-05 23:26 | XMS_ITS | Encounter Summary ---
Author Organization Healthcare Address [address] [place] [address] Care Team Providers Care Plumbing Engineering Draftsperson Name Role Phone Yennifer Mcgee Primary Care Provider [phone] Amberly Childs LPN Unavailable Unavailable Encounter Details Date Type Department Care Team (Late st Contact Info) Description 10/06/2024 Lab Requisition [facility] [address] [place] [address] Yennifer Mcgee PA [address] [place] [address] Routine general medical examination at [...] any clubs o r organizations such as taoist groups, unions, fraternal or athletic groups, or [...] more drinks on one occasion? Never 10/08/2024 [facility]ational Stress Questionnaire Answer Date [...] any time in the past 12 m [facility], were you homeless or living in a half-way (including now)? No 10/08/2024 Utilities Answer Date Recorded In the past 12 months has th e [employer], gas, oil, or water [employer] threatened to shut off services in your [...] Date of Assessment Author No Risk Indicated 10/09/2024 8:00 PM EDT Samantha Jackson RN * Question Answer Date of Assessment Author 1. Wish to be (Past 1 Month) No 025 8:00 PM SALINAT Samantha Jackson, JENNI 2. Non-Specific Active Suici carla Thoughts (Past 1 Month) No 10/09/2024 8:00 PM Samantha Britton, RN 6. Suicidal Behavior (Lifetime) No 8:00 PM SALINAT Samantha Jackson, RN documented as of this encounter Plan of Treatment Upcoming Encounters Date Type Department Care Team (Late st Contact Info) Description 12/19/2024 1:40 PM EDT Office Visit [facility] [address] [place] [address] Brynn Baez, SOW FARM BARN TECHNICIAN [address] [place] [address] 12/31/2024 1:30 PM EDT Appointment Medical Office Building Cardiac Diagnostic Testing Medical Office Building Echo Lab [address] [facility], [address] [place] [address] 12/31/2024 2:45 PM EDT Office Visit [facility] [address], [address] [place] [address] Dank Carrasquillo MD [address] [place] [address] documented as of this encounter Visit Diagnoses Diagnosis Routine general medical examination at a health care facility documented in this encounter Additional Health Concerns Assessment Noted Time A Body Mass Index follow-up plan has been documented for the patient 10/14/2024 2:47 PM EDT documented as of this encounter Care Teams Plumbing Engineering Draftsperson Relationship Specialty Start Date End Date Yennifer Mcgee PA [address] [place] [address] PCP - General Psychiatry 10/03/24 Amberly Childs LPN TCM Nurse 10/09/24 11/14/24 documented as of this encounter
[2024-12-06 06:55] LABS: Hepatitis B Surface Antigen Negative (Negative)
== END 2024-12-04 23:59 | disposition home or self-care (01) ==
LOC: LAB.DROPOF 12-05 23:20
PROVIDERS: PCP Nurse Practitioner Family; Visit Provider Nurse Practitioner Family
DX: E78.5 Hyperlipidemia, unspecified (principal); I11.9 Hypertensive heart disease without heart failure
CPT/HCPCS: 80053; 80061; 82088; 84244; 84436; 84443; 85025; 86803; 87340; 87389

== ENCOUNTER 2025-06-22 16:20 | Emergency (ER) | payer MEDICARE, SELFPAY ==
[2025-06-22] VITALS (23 sets, daily range): BP systolic 134–208; BP diastolic 78–137; PULSE 57–83; RESP 14–19; TEMP 36.7–37.2; O2SAT 96–100; BMI 16.9
--- NOTE | 2025-06-22 16:24 | ECG_ITS ---
APPROVED REPORT Exam: Resting ECG HR:73 bpm ECG Measurements Heart Rate 73 AXES ME 153 P 75 QRSd 93 QRS 85 QT 369 T 76 QTc 396 Conclusion SINUS RHYTHM MODERATE ST DEPRESSION [0.05+ mV ST DEPRESSION] ABNORMAL ECG UNCONFIRMED REPORT Electronically signed by : KEVIN YEUNG, 06/22/2025 21:49:00
--- NOTE | 2025-06-22 16:31 | XR_ITS ---
PROCEDURE INFORMATION: Exam: XR Chest Exam date and time: 06/22/2025 4:39 PM Age: 64 years old Clinical indication: Pain; Chest pressure; Additional info: Cp TECHNIQUE: Imaging protocol: Radiologic exam of the chest. Views: 1 view. COMPARISON: No relevant prior studies available. FINDINGS: Tubes, catheters and devices: Leads overlying chest. Lungs: No consolidation. Pleural spaces: No significant pleural effusion. No pneumothorax. Heart/Mediastinum: No cardiomegaly. Bones/joints: Postsurgical changes of cervical spine. Soft tissues: Probable nipple shadows. IMPRESSION: No definite acute cardiopulmonary disease.
--- OUTSIDE RECORDS SUMMARY | 2025-06-22 16:33 | XMS_ITS | Clinical Summary ---
Author Organization [facility] Address [address] [place] [address] Care Team Providers Care Records Technician Name Role Phone Fabi Murillo MD Primary Care Provider Unavailable Allergies Active Allergy Reactions Criticality Noted Date Comments Amoxicillin-Pot Clavulanate 05/05/20 12 GI UPSET Moxifloxacin Hydrochloride 2 Caffeine 05/05/2012 Chloramphenicol 05/05/2012 Codeine 05/05/2012 Erythromycin 05/05/2012 Levofloxacin Hemihydrate Hives 05/05/2012 SWELLING OF LIPS Hydrocodone-Acetaminophen 05/05/2012 Enoxaparin Sodium 05/05/2012 Sulfa Antibiotics Rash Low 05/05/2012 Tetracycline 05/05/2012 Wheat Flour 05/05/2012 Medications buPROPion (WELLBUTRIN XL) 150 MG 24 hr tabletIndications :Major Depressive Disorder Take 450 mg by mouth daily. Active clonazePAM (KLONOPIN) 1 MG tabletIndications :Panic Disorder Take 1 mg by mouth 4 (four) times daily. PER DR [facility] Active Multiple Vitamin (MULTIVITAMIN) capsule Take 1 capsule by mouth daily. Active OLANZapine (ZYPREXA) 10 MG tablet Take 10 mg by mouth nightly. Active aspirin 81 MG EC tabletIndications :Coronary artery disease, occlusive Take 1 tablet by mouth daily 30 tablet 5 4 Active nitroglycerin (NITROSTAT) 0.4 MG SL tabletIndications :Coronary artery disease, occlusive Place 1 tablet under the tongue every 5 (five) minutes as needed for Chest pain 25 tablet 5 4 Active mirtazapine (REMERON) 15 MG tablet Take 15 mg by mouth nightly Active pantoprazole (PROTONIX) 40 MG tablet 6 Active cyclobenzaprine (FLEXERIL) 10 MG tabletIndications :Lumbosacral radiculopathy,Cer vical radiculopathy Take 1 tablet by mouth 3 (three) times daily as needed for Muscle spasms 100 tablet 1 6 Active lisinopril (PRINIVIL,ZESTRIL ) 10 MG tabletIndications :Essential hypertension Take 1 tablet by mouth daily 90 tablet 1 6 Active carvedilol (COREG) 25 MG tabletIndications :Essential hypertension Take 1 tablet by mouth 3 (three) times daily 270 tablet 8 Active valACYclovir (VALTREX) 1000 MG tabletIndications :HSV infection Take 1 tablet by mouth 2 (two) times daily 60 tablet 3 8 Active ranolazine (RANEXA) 500 MG 12 hr tabletIndications :Coronary artery disease, occlusive Take 1 tablet by mouth 2 (two) times daily 60 tablet 8 Active albuterol HFA 108 (90 Base) MCG/ACT inhalerIndication s:COPD with exacerbation Inhale 2 puffs into the lungs every 4 (four) hours as needed for Wheezing 3 Inhaler 3 8 Active albuterol HFA 108 (90 Base) MCG/ACT inhaler Inhale 2 puffs into the lungs every 6 (six) hours as needed for Wheezing 3 Inhaler 3 8 Active fluticasone (FLONASE) 50 MCG/ACT nasal sprayIndications: COPD with exacerbation Instill 1 spray in each nostril daily 1 Bottle 3 8 Active Active Problems Patient Care Coordination No te Formatting of this note migh t be different from the original. Education Materials ProvidedAdia Walters was provided with tobacco cessation education materials.Fabi Murillo MD 03/13/2013, 03/11/2014,12/23/2014 ,09/15/15, 05/24/16 I have completed the depression screening for Adia Walters on 09/15/2015. 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 fract ure Overview (05/24/2016): 05/08/2013 WORSE T-SCORE .-2.3 SPINE AND HIP, BI-PHOSPHONATE FAILURE IN THE PAST AND IMPROVED WITH RECLAST Chronic cervical pain Resolved Problems Problem Noted Date Diagnosed Date Resolved Date Vitamin D deficiency 05/10/2013 016 Immunizations Immunization Administration Dates Next Due Influenza Vaccine Intradermal 18-64 Pf 3 Tdap 04/03/2008 Family History Medical History Relation Comments Migraines Brother Migraines Daughter Cancer, Other or Unknown Type Father BRET NG +TOB Hyperlipidemia Father Heart disease Maternal Grandmother Cancer, Other or Unknown Type Maternal Uncle KAIA NE CANCER Aneurysm Mother AORTIC DISSECTIO N Breast cancer Mother Dementia Mother Heart disease Mother CABG Other Mother H1N1 Stroke Mother TIA Breast cancer Paternal Grandfather Relation Status Comments Brother Daughter Father Maternal Grandmother Maternal Uncle Mother Paternal Grandfather Alive Social History Tobacco Use Types Packs/Day Years Used Date Smoking Tobacco: Every Day Cigarettes 0.8 51.6 Started: 1973 Smokeless Tobacco: Never Tobacco Cessation:Ready to Q uit: No; Counseling Given: Yes Comments:CUTTING BACK ON TOBACCO USING NICOTINE INHALER Alcohol Use Standard Drinks/Week Comments No 0 (1 standard drink = 0.6 oz pur e alcohol) Comments No Sex and Gender Information Value Date Recorded Sex Assigned at Not on file Legal Sex Female 4:19 PM EST Gender Identity Not on file Sexual Orientation Not on file Last Filed Vital Signs Vital Sign Reading Time Taken Comments Blood Pressure 118/80 08/21/2017 2:09 PM EST Pulse 68 08/21/2017 2:09 PM EST Temperature 37.3 C (99.1 F) 08/21/2017 2:09 PM EST Respiratory Rate 18 06/09/2016 1:40 PM EST Oxygen Saturation 98% 08/21/2017 2:09 PM EST Inhaled Oxygen Concentration - - Weight 39.5 kg (87 lb) 08/21/2017 2:09 PM EST Height 156.2 cm (5' 1.5 ) 08/21/2017 2:09 PM EST Body Mass Index 16.17 08/21/2017 2:09 PM EST Plan of Treatment Health Maintenance Due Date Last Done Comments CT Colonography 1960 FIT-DNA 1960 FIT 1960 Hepatitis C Screening 1960 Sigmoidoscopy 1960 Pneumococcal Vaccines >50 yo (1 of 1 - PCV) 2010 Shingles (Shingrix) (1 of 2) 2010 Colonoscopy 07/27/2013 07/27/2003 Lung Cancer Screening 05/24/2016 Colorectal Cancer Screening 09/14/2016 FOBT 09/14/2016 09/15/2015 Tdap/Td Vaccine >11 yo (2 - Td or Tdap) 04/03/2018 04/03/2008 Breast Cancer Screening 05/23/2018 05/23/20 16, 05/08/2013, 12/19/2010 Cervical Cancer Screening 09/14/20182015, 09/03/2009 Annual SDOH Screening 06/25/2024 Influenza Vaccine (#1) 2025 05/08/2013 RSV 50+ and (1 - 1-dose 75+ series) 12/03/2035 Haemophilus Influenzae Type B (Hib) Vaccine Aged Out No longer eligible b ased on patient's age to complete this topic Hepatitis A (HepA) Vaccine Aged Out N o longer eligible based on patient's age to complete this topic Hepatitis B (HepB) Vaccine Aged Out N o longer eligible based on patient's age to complete this topic Meningococcal ACWY Aged Out No longer eligible based on patient's age to complete this topic Polio (IPV) Aged Out No longer eligi ble based on patient's age to complete this topic Rotavirus (RV) Vaccine Aged Out No lo nger eligible based on patient's age to complete this topic Procedures Procedure Name Priority Date/Time Associated Diagnosis Comments MAMMOGRAM KULDIP SCREENING BILATERAL Routine 05/23/2016 1:34 PM EST Postmenopausal Encounter for screening mammogram for high-risk patient POCT OCCULT BLOOD STOOL Routine 09/15/2015 11:53 AM EDT Annual physical exam PAP SMEAR Routine 09/15/2015 10:54 AM EDT Annual physical exam HM COLONOSCOPY Routine 07/27/2003 from Last 3 Months or Most Recently Relevant to Health Maintenance Results * Mammogram Kuldip Screening Bilateral (05/23/2016 1:34 PM EST) Anatomical Region Laterality Modality Breast [facility] Mammogra phy 05/25/2016 10:2 6 AM EST Narrative 05/25/2016 10:26 AM EST MAMMOGRAPHY REPORT FACILITY: [facility] UNIT/AGE/GENDER: OP AGE: 55 Y SEX: F PATIENT NAME/: ADIA WALTERS M 1960 UNIT NUMBER: [id number] ACCESSION NUMBER: [id number] DATE OF EXAM: 05/23/2016 EXAMINATION(S): MAMMOGRAM KULDIP SCREENING BILATERAL CLINICAL HISTORY: Patient is a 55 year old female. The patient is seen for a screening examination. The patient has no personal history of breast cancer. The patient has a history of bilateral cyst aspiration. COMPARISON STUDIES: The present examination has been compared to prior imaging studies performed at [facility] on 12/19/2010, and at [facility] on 05/08/2013. DIGITAL BILATERAL SCREENING MAMMOGRAM WITH TOMOSYNTHESIS The following views were performed: Bilateral craniocaudal; bilateral mediolateral oblique; and bilateral craniocaudal exaggerated to axilla. Images were reviewed with digital R2 Computer-Aided Detection (CAD). The breasts are extremely dense, which lowers the sensitivity of mammography. There are no suspicious masses, significant calcifications, or other abnormalities seen. Tomosynthesis was utilized for this examination. IMPRESSION: There is no mammographic evidence of malignancy. Screening Mammogram in 1 year is recommended. BI-RADS Category 1: Negative The patient has been entered into an automated reminder system. <Electronically signed by DEVORAH MARQUEZ M.D.> 05/25/2016 1026 Procedure Note Devorah Marquez MD - 05/25/2016 MAMMOGRAPHY REPORT FACILITY: [facility] UNIT/AGE/GENDER: OP AGE: 55 Y SEX: F PATIENT NAME/: ADIA WALTERS M 1960 UNIT NUMBER: [id number] ACCESSION NUMBER: [id number] DATE OF EXAM: 05/23/2016 EXAMINATION(S): MAMMOGRAM KULDIP SCREENING BILATERAL CLINICAL HISTORY: Patient is a 55 year old female. The patient is seen for a screeningexamination. The patient has no personal history of breast cancer. Thepatient has a history of bilateral cyst aspiration. COMPARISON STUDIES: The present examination has been compared to prior imaging studiesperformed at [facility] on 12[facility]19/2010, and at [facility] on 05/08/2013. DIGITAL BILATERAL SCREENING MAMMOGRAM WITH TOMOSYNTHESIS The following views were performed: Bilateral craniocaudal; bilateralmediolateral oblique; and bilateral craniocaudal exaggerated to axilla.Images were reviewed with digital R2 Computer-Aided Detection (CAD). The breasts are extremely dense, which lowers the sensitivity ofmammography. There are no suspicious masses, significant calcifications, or otherabnormalities seen. Tomosynthesis was utilized for this examination. IMPRESSION: There is no mammographic evidence of malignancy. Screening Mammogram in 1 year is recommended. BI-RADS Category 1: Negative The patient has been entered into an automated reminder system. <Electronically signed by DEVROAH MARQUEZ M.D.> 05/25/2016 1026 us Fabi Murillo MD IMG MAMMOGRAPHY ORDERAB LES Final Result * POCT occult blood stool (09/15/2015 11:53 AM EDT) Fecal Occult Blood Negative Negative Stool specimen (specimen) 09/15/2015 11:53 AM EDT us Fabi Murillo MD POINT OF CARE TEST [facility] Final Result * Pap Smear (09/15/2015 10:54 AM EDT) Pathology SPECIMEN FROM UTERINE CERVIX / Unknown 09/15/2015 10:54 AM EDT 09/15/2015 8:42 PM EDT Narrative [facility] ([facility]) - 09/18/2015 9:15 AM EDT [facility] [address] [place] [address] * Clinician: Patient Name: Accession Number: MD HIMA CARRERA CARLA M [id number] [employer] - OLD Collected: ZOEY MCAK : 1960 09/15/2015 [address] Sex: F Received: [facility] Chart #: 09/15/[id number] Reported: [place] [address]- 09/18/2015 GYNECOLOGIC CYTOLOGY REPORT Final Report DIAGNOSIS: NEGATIVE (NO EVIDENCE OF INTRAEPITHELIAL LESION OR MALIGNANCY) SPECIMEN ADEQUACY: SATISFACTORY FOR EVALUATION: ENDOCERVICAL MATERIAL PRESENT SPECIMEN SOURCE: THIN PREP CERVICAL/ENDOCERVICAL MENSTRUAL STATUS: Comment: Last PAP date: 2009. Last PAP smear results: normal CPT Codes: (Tech) - 47324, x1 MEDICAL RECEPTION SPECIALIST: QC REVIEW : <Sign Out Dr. Gutierrez> SIGNED OUT BY: LATISHA AGEE PRIOR PATIENT HISTORY: Pap smear testing is subject to false negative and false positive results. This result should be interpreted in conjunction with history and clinical findings. ThinPrep specimens have been analyzed by the ThinPrep Imaging System (This Week In), an automated imaging and review system. Alexey Cross M.D. - Caser In Haris Parker M.D. - Director of Cytopathology Fabi Murillo MD PATHOLOGY/CYTOLOGY [facility] Final Result [facility] [address] [place] [address] * COLONOSCOPY (07/27/2003) Pathologist [facility] Colonoscopy NEGATIVE us Historical Provider HEALTH MAINTENANCE Final Res ult from Last 3 Months or Most Recently Relevant to Health Maintenance Insurance [employer] MEDICARE REPLACEMENT Care Teams Records Technician Relationship Specialty Start Date End Date Fabi Murillo MD PCP - General 05/07/12
--- OUTSIDE RECORDS SUMMARY | 2025-06-22 16:33 | XMS_ITS | Clinical Summary ---
Author Organization Healthcare Address [address] 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 10/13/2021 Overview (12/24/2024): Added automatically from request for surgery [id number] Coronary atherosclerosis 03/01/2017 Irritable bowel syndrome with diarrhea 7 Osteoporosis 08/24/2016 Overview (12/24/2024): 05/08/2013 WORSE T-SCORE .-2.3 SPINE AND HIP, BI-PHOSPHONATE FAILURE IN THE PAST AND IMPROVED WITH RECLAST Mixed anxiety and depressive disorder 08/24/2016 Panic disorder 08/24/2016 Hypertensive disorder 09/15/2015 HLD (hyperlipidemia) 09/15/2015 History of non-ST elevation myocardial infarctio n (NSTEMI) 03/12/2014 Pulmonary emphysema 05/07/2012 Tobacco use disorder 05/07/2012 Resolved Problems Problem Noted Date Diagnosed Date Resolved Date Diarrhea 12/24/2024 03/29/2025 Sore throat 12/24/2024 03/29/2025 Hypertensive emergency 10/03/202410/04 Gastroenteritis 10/10/2016 03/29/2025 Immunizations Immunization Administration Dates Next Due Influenza, [...] How often do you attend chur or yarsanism services? Never 10/08/2024 Do you belong to any clubs o r organizations such as adventist groups, unions, fraternal or athletic groups, or [...] more drinks on one occasion? Never 10/08/2024 [facility] Occupational Stress Questionnaire Answer [...] any time in the past 12 m [facility], were you homeless or living in a mcc (including now)? No 10/08/2024 Utilities Answer Date Recorded In the past 12 months has th e [employer], gas, oil, or water company threatened to [...] 10/22/2024 12:45 PM EDT Plan of Treatment Health Maintenance Due Date Last Done Comments [facility]-Bone Density Scan 1960 [facility]-Depression Screening 1960 [facility]-Medicare Annual Wellness (AWV) 1960 [facility]-Infant/Child/Adol SDOH Screenings 1960 [id number] Vaccine (#1) 06/03/1961 [facility]-Pneumococcal Vaccine: 50 + Years (1 of 2 - PCV) 12/03/1979 [facility]-Zoster Vaccines (1 of 2) 12/03/1979 [facility]-HPV/Cotest 1990 CT Colonography 2005 FIT-DNA 2005 FIT 2005 Sigmoidoscopy 2005 Lung Cancer Screening Shared Decision Making 2010 [facility]-RSV Vaccine: 60+ Years o r (1 - Risk 50-74 years 1-dose series) 2010 FOBT 09/14/2016 09/15/2015 [facility]-Breast Cancer Screening 05/23/201804/26, 05/23/2016, 05/08/2013 [facility]-Cervical Cancer Screening 09/14/2018 [facility]-Pap Smear 09/14/2018 09/15/2015 [facility]-Influenza Vaccine (#1) 2025 05/08/2013 [facility]- SDOH Screenings 04/09/2025 [facility]-Adult SDOH Screenings 04/09/2025 10/08/2024 [facility]-Lung Cancer Screening 10/03/2025 10/03/2024 [facility]-DTaP,Tdap,and Td Vaccine s (3 - Td or Tdap) 01/31/2028 01/30/2018, 04/03/2008 Colonoscopy 01/15/2034 01/16/2024 [facility]-Colorectal Cancer Screening 01/15/2034 [facility]-HIV Screening Completed 10/03/2024 [facility]-Hepatitis C Screening Completed 10/03/2024 HPV Vaccines (No Doses Required) Completed [facility]-HIB Vaccines Aged Out No longer e [...] Procedure Name Priority Date/Time Associated Diagnosis Comments CT ANGIO CHEST STAT 10/03/2024 4:44 PM EDT HEPATITIS C ANTIBODY - ED W/REFLEX TO HCV QUANT PCR STAT 10/03/2024 3:29 PM EDT ED HIV 1/2 ANTIBODY/ANTIGEN SCREEN WITH REFLEX TO HIV I/II DIFFERENTIATION STAT 10/03/2024 3:29 PM EDT from Last 3 Months or Most Recently Relevant to Health Maintenance Results * CT Angio Chest (10/03/2024 4:44 PM [...] TOTAL DLP (Dose-Length Product): 429.59 mGy.cm (accession [id number]), 429.59 mGy.cm (accession [id number]). Please note: The reported value represents the [...] bilateral common iliac arteries with short segment wllr-ou-ispbteuc stenosis left common iliac artery. Atherosclerotic disease [...] TOTAL DLP (Dose-Length Product): 429.59 mGy.cm (accession [id number]),429.59 mGy.cm (accession [id number]). Please note: The reported valuerepresents the total [...] disease bilateral common iliac arteries with short rhzmafixlyk-xs-oypxtysy stenosis left common iliac artery. Atherosclerotic disease [...] CRUZ IMG CT PROCEDURES Final Result * ED HIV 1/2 Antibody/Antigen Screen w/Reflex to HIV 1/2 Differentiation (10/03/2024 3:29 PM EDT) Pathologist [facility] HIV 1 & 2 Antibody/Antigen Screen Non Reactive Non Reactive 10/03/2024 4:18 PM EDT [facility] Comment:Screening for HIV 1 & 2 antibodies, and P24 antigen is NONREACTIVE. No confirmatory testing is required. Blood Venous blood specimen / Unknown Venipuncture / Unknown 10/03/2024 3:29 PM EDT 10/03/2024 3:37 PM EDT Dank Blake MD LAB BLOOD ORDERABLES Final Res ult Performing Organization Address City/[facility]/ZIP Co de Phone Number [facility] [address] [place] [address] * Hepatitis C Antibody - ED (10/03/2024 3:29 PM EDT) [facility] Hepatitis C Antibody Negative Negative 10/03/2024 4:14 PM EDT [facility] Blood Venous blood specimen / Unknown Venipuncture / Unknown 10/03/2024 3:29 PM EDT 10/03/2024 3:38 PM EDT Dank Blake MD LAB BLOOD ORDERABLES Final Res ult [facility] [address] [place] [address] from Last 3 Months or Most Recently Relevant to Health Maintenance Insurance [employer] MEDICARE Advance Directives * Full Code (Latest Code Status on File) Date Activated Date Inactivated Comments 10/06/2024 2:12 PM 10/14/2024 5:26 PM Question Answer Comments I have reviewed the capacity from the link above and, if needed, have updated to appropriate status: Yes * Full Code Date Activated Date Inactivated Comments 10/03/2024 7:34 PM 10/04/2024 7:27 PM Care Teams Senior Genetic Counselor Relationship Specialty Start Date End Date Yennifer Mcgee PA [address] [place] [address] PCP - General Psychiatry 10/03/24
--- OUTSIDE RECORDS SUMMARY | 2025-06-22 16:33 | XMS_ITS | Patient Health Record ---
Author Organization Jim Hayes MD [facility] Address [address] [place], [place] [address] Care Team Providers Care Fish Boning Machine Feeder Name Role Phone NO, PCP Primary Care Provider Jacob Capone Unavailable [phone] Allergies Allergen (clinical drug ingredient) Drug/Non Drug [...] Duration) Notes Start Date End Date Status raNITIdine HCl 150 MG 1 tablet Orally Tw ice a day 02/26/2018 Not-Taking Ranexa Not-Taking Albuterol Sulfate HFA Not-Taking Cefdinir 300 MG 1 capsule Orally every 12 hrs Not-Taking raNITIdine HCl 150 MG 1 capsule Orally Twice a day; Duration: 90 days 07/02/2018 Not-Taking Marinol Not-Taking OLANZapine 2.5 MG 1 tablet Orally Once a day Not-Taking Mirtazapine 30 MG 1 tablet at bedtime Orally Once a day Active Ondansetron 4 MG 1 tablet on the tongue and allow to dissolve as needed Orally Once a day as needed; Duration: 30 days Not-Taking Nitroglycerin 0.4 MG Sublingual prn Not-Taking Ranolazine ER 500 MG 1 tablet Orally Twi ce a day Not-Taking buPROPion HCl ER (SR) 150 MG 1 tablet Orally tid Not-Taki ng Dicyclomine HCl 10 MG 2 capsules Orally twice/day; Duration: 180 days 07/02/2018 Active Sucralfate 1 GM take 1 tablet by mouth twice a day on empty stomach for 30 days Orally twice/day; Duration: 180 days Active Atorvastatin Calcium 10 MG 1 tablet Oral ly Once a day Not-Taking Lisinopril 10 MG 1 tablet Orally Once a day; Duration: 30 day(s) Not-Taking Ventolin HFA Not-Alejandro ing Cyclobenzaprine HCl 10 MG 1 tablet as ne eded Orally Three times a day Not-Taking clonazePAM 1 MG 1 tablet Orally four times a day Not-Taking Dicyclomine HCl 20 MG TAKE 1 TABLET BY MOUTH 3 TIMES A DAY NEEDED; Duration: 90 Active Cetirizine HCl 5 MG 1 tablet Orally Once a day; Duration: 30 day(s) Active Amitiza 8 MCG 1 capsule with food Orally Twice a day; Duration: 90 days 11/23/2016 Not-Taking NIFEdipine ER 30 [...] Risk Notes Problem Benign neoplasm of duodenum (86744507) 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 Problem Epigastric pain (62185136) Epigastric pain (R10.13) Active confirmed Problem Generalized abdominal pain (227866384) Generalized abdominal pain (R10.84) Active confirmed Problem Nausea (025190104) Nausea (R11.0) Active confir med Problem Change in bowel habit (68987890) Change in bowel habit (R19.4) Active confirmed Problem Diarrhea (70525992) Diarrhea, unspecified (R19.7) Active confirmed Problem Urinary incontinence (450624997) Unspecified urinary incontinence (R32) Active confirmed Problem Anorexia (05917840) Anorexia (R63.0) Active confirmed Problem Abnormal weight loss (563890195) Abnormal weight loss (R63.4) Active confirmed Problem Food allergy (291961505) Allergy to other foods (Z91.018) Active confirmed Problem Acute myocardial infarction (75101350) Acute myocardial infarction, unspecified (I21.9) Active confirmed Plan Of Treatment Pending Test Test Name Order Date Ultrasound : Abdomen and Pelvis 02/07/20 18 Small Bowel Follow Through 02/26/2018 Insurance Providers Payer Name Payer Address Payer Phone Subscriber Number Group Number Insured Name Patient Relationship to Insured Coverage Start Date Coverage End Date [employer] PPO [address] [address] [place] [address] [phone] [id number] SELENA ADIA Self - patient is the insured Medical [...]
--- OUTSIDE RECORDS SUMMARY | 2025-06-22 16:33 | XMS_ITS | Data Portability ---
Author Organization [facility] Address [address] [place] [address] Care Team Providers Care Rad Technologist Name Role Phone AMAYA GARZA OTHER Assessment No assessment recorded. Plan of Treatment Reminders Order Date Submit Date Provider Last Modified By Organization Details Last Modified Time Details Appointments Follow Up 2025 02:00P M Parmjit Lawrence APRN Not available Not available Not available Lab drug screen, urine 2024 025 [facility], [address] [place] [address], [place], [address], 03/05/2025 14:38:17 Referral gastroent erologist referral 2024 025 YUNIEL Sprague MD, [address], [place], [address], 06/01/2025 04:04:12 behaviora health referral 2024 025 [facility], [address] [place] [address], [id number], 03/24/2025 15:37:03 gynecolog ist referral 2024 025 YUNIEL Vences, [address], [address], [place], [address], 06/10/2025 20:14:19 Procedures None recorded. Surgeries None recorded. Imaging None recorded. Medication Orders acyclovir 400 mg tablet 2024 025 [facility], [address] [place] [address] S, RAFI Treviño, [id number], 05/17/2025 05:01:29 amoxicill in 500 mg tablet 2024 025 [facility], [address] [place] [address] S, RAFI Treviño, [id number], 05/21/2025 05:02:15 clonazepa m 0.5 mg tablet 2024 025 [facility], [address] [place] [address] S, RAFI Treviño, [id number], 06/15/2025 09:53:48 clonazepa m 0.5 mg tablet 2024 025 [facility], [address] [place] [address] S, RAFI Treviño, [id number], 04/17/2025 09:09:16 Augmentin 500 mg-125 mg tablet 2024 025 [facility], [address] [place] [address] S, RAFI Treviño, [id number], 03/29/2025 05:02:15 clonazepa m 0.5 mg tablet 2024 025 [facility], [address] [place] [address] S, RAFI Treviño, [id number], 03/20/2025 09:38:05 clonazepa m 0.5 mg tablet 2024 025 [facility], [address] [place] [address] S, RAFI Treviño, [id number], 03/20/2025 16:30:02 albuterol sulfate HFA 90 mcg/actua tion aerosol inhaler 2024 025 [facility], [address] [place] [address], RAFI Treviño, [id number], 05/06/2025 15:25:49 clonazepa m 0.5 mg tablet 2024 025 [facility], [address] [place] [address], RAFI Treviño, [id number], 03/10/2025 05:02:12 amoxicill in 500 mg capsule 2024 025 [facility], [address] [place] [address], RAFI Treviño, [id number], 03/12/2025 14:48:31 carvedilo l 12.5 mg tablet 2024 025 [facility], [address] [place] [address], RAFI Treviño, [id number], 02/27/2025 14:23:34 hydrochlo rothiazid e 25 mg tablet 2024 025 [facility], [address] [place] [address], RAFI Treviño, [id number], 02/27/2025 14:23:29 nifedipin e ER 60 mg tablet,ex tended release 24 hr 2024 025 [facility], [address] [place] [address], RAFI Treviño, [id number], 02/27/2025 14:23:30 aspirin 81 mg chewable tablet 2024 025 [facility], [address] [place] [address] S, RAFI Treviño, [id number], 02/27/2025 14:23:33 clonazepa m 0.5 mg tablet 2024 025 YUNIEL Treviño [facility], [address] [facility] [address] [place], [id number], 03/10/2025 05:02:12 mupirocin 2 % topical ointment 2024 025 YUNIEL Treviño [facility], [address] [facility] [address] [place], [id number], 02/27/2025 17:24:14 Patient TargetsNo targets recorded. Patient InstructionsNo instructions recorded. Reason for Referral Private Branch Exchange Service Advisor Referral for Ca ncer cervix screening status Referring Physician: Parmjit Lawrence [facility], Encounter Date: 02/27/2025 Behavioral Health Referral f or Anxiety Referring Physician: Parmjit Lawrence [facility], Encounter Date: 03/12/2025 Direct Support Professional Referral for Chronic diarrhea Referring Physician: Parmjit Lawrence [facility], Encounter Date: 04/06/2025 Results Created Date Observation Date Name Description Value Unit Range Abnormal Flag Note LastModifiedBy Organization Detail LastModifiedTime 03/05/2003/05/2025 drug scree n, urine AMP negati ve Not Available [address], [address], 03/03/2025 14:07:23 03/05/2003/05/2025 drug scree n, urine BAR negati ve Not Available [address], [address], 03/03/2025 14:07:23 03/05/2003/05/2025 drug scree n, urine BUP negati ve Not Available [address], [address], 03/03/2025 14:07:23 03/05/2003/05/2025 drug scree n, urine BZO negati ve Not Available [address], [address], 03/03/2025 14:07:23 03/05/20 25 03/05/2025 drug scree n, urine BLADE negati ve Not Available [address], [address], 03/03/2025 14:07:23 03/05/20 25 03/05/2025 drug scree n, urine FTY negati ve Not Available [address], [address], 03/03/2025 14:07:23 03/05/20 25 03/05/2025 drug scree n, urine MDMA negati ve Not Available [address], [address], 03/03/2025 14:07:23 03/05/20 25 03/05/2025 drug scree n, urine MET negati ve Not Available [address], [address], 03/03/2025 14:07:23 03/05/20 25 03/05/2025 drug scree n, urine MOP negati ve Not Available [address], [address], 03/03/2025 14:07:23 03/05/20 25 03/05/2025 drug scree n, urine MTD negati ve Not Available [address], [address], 03/03/2025 14:07:23 03/05/20 25 03/05/2025 drug scree n, urine OXY negati ve Not Available [address], [address], 03/03/2025 14:07:23 03/05/20 25 03/05/2025 drug scree n, urine THC positi ve Not Available [address], [address], 03/03/2025 14:07:23 03/05/20 25 03/05/2025 drug scree n, urine TCA negati ve Not Available [address], [address], 03/03/2025 14:07:23 03/05/20 25 03/05/2025 drug scree n, urine PCP negati ve Not Available [address], [address], 03/03/2025 14:07:23 Result Notes None recorded. Problems Name Problem SNOMED Code Status Onset Date Resolution Date Notes Provider Name and Address Organization Details Recorded Time Condyloma Active anal- shave biopsy Bela RichardsonMAURIZIO [address], [place], [address], [place] - [facility] 4 23:37:35 Depressive disorder 09975663 Active 2016 Bela MAURIZIO Richardson [address], [place], [address], [place] - [facility] 4 19:06:43 Hypertensi ve disorder 67665968 Active 2016 Belarip Richardson APRN [address], [place], [address], [place] [facility] 4 19:06:49 Irritable bowel syndrome 45505840 Active 2016 Bela RichardsonMAURIZIO [address], [place], [address], [place] - [facility] 4 19:06:55 Osteoporos is 01208192 Active 2016 Bela Richardson, [employer] [address], [place], [address], [place] - [facility] 4 19:07:02 Panic disorder 048679552 Active 2016 Bela Richardson APRN [address], [place], [address], [place] [facility] 4 19:07:05 Gastroente ritis 79836381 Completed 201611/19/2023 Bela Richardson APRN [address], [place], [address], [place] [facility] 4 19:06:34 Coronary arterioscl erosis 43648784 Active 2016 Bela Richardson [employer] [address], [place], [address], [place] [facility] 4 19:06:40 Chronic obstructiv e pulmonary disease 21343517 Active 2016 Bela Richardson [employer] [address], [place], [address], [place] [facility] 4 19:06:37 Tobacco user 278269897 Active 2023 Bela Richardson [employer] [employer] [address], [place], [address], [place] [facility] 4 19:07:14 Screening for malignant neoplasm of respirator y tract Active 2023 Bela Richardson [employer] [address], [place], [address], [place] [facility] 4 19:07:09 Nicotine dependence with current use 738329050 Active 2023 Bela Richardson APRN [address], [place], [address], [place] [facility] 4 19:06:59 History of abnormal cervical Papanicola ou smear 271663084 Active 2023 Bela RichardsonCHACROTAN [address], [place], [address], [place] [facility] 4 19:06:45 Squamous cell carcinoma of anal margin 963936067 Active 2023 Bela RichardsonMAURIZIO [address], [place], [address], [place] [facility] 4 23:34:55 Placement of stent in cardiac conduit Active 2023 x4 Bela RihcardsonCHACORTAN [address], [place], [address], [place] - [facility] 4 23:37:37 Pulmonary emphysema 94096659 Active 2023 Bela CHACORTA RichardsonN [address], [place], [address], [place] - [facility] 4 23:37:07 Mixed anxiety and depressive disorder 988436990 Active 2023 Bela MAURIZIO Richardson [address], [place], [address], [place] - [facility] 4 23:37:19 Anxiety 86769216 Active 2024 Teressa Luz [facility] [place] - [facility] 5 13:37:42 Problem Notes None recorded. Procedures Surgical History Date Name Laterality Status Provider Name and Address Organization Details Recorded Time 01/16/20 24 Date of Last Colonoscopy completed Belarip Richardson APRN [address], [place], [address], [place] - [facility] 04/22/2024 21:07:03 01/08/20 24 Cerumen Removal completed Korina Mullins APRN [address], [place], [address], [place] - [facility] 01/08/2024 17:19:48 01/08/20 24 Most Recent Bone Density completed Bela Richardson APRN [address], [place], [address], [place] - [facility] 06/20/2024 21:23:00 12/21/19 24 Date of Last Mammogram completed Stephy Ramos [place] - [facility] 01/10/2024 13:16:18 12/04/19 24 Colposcopy completed Tara Parks MD [address], [place], [address], [place] - [facility] 12/04/2023 10:17:03 12/04/19 24 Colposcopy completed Tara Parks MD [address], [place], [address], [place] [facility] 12/20/2023 13:11:31 11/16/19 24 Date of Last Pap Smear completed Bela Richardson, [employer] [address], [place], [address], [place] [facility] 11/23/2023 14:08:46 09/11/19 24 Nebulizer tx completed Marah Pratt [place] - [facility] 09/11/2023 14:31:27 10/28/19 22 operation on rectum completed Bela Richardson APRN [address], [place], [address], [place] - [facility] 11/25/2023 23:41:01 Adenoidectomy completed [...] Name and Address Organization Details Recorded Time 253404 neomycin medicatio n Not available Not available Not available 11/25/2023 7299 RxNorm Bela Richardson APRN [address], [place], [address], [place] - [facility] 4 23:38:26 269907 Cipro medicatio n Not available Not available Not available 01/08/202499767 3 Rx[facility] Bina Porter null, [place] - [facility] 4 16:49:08 947614 amoxicill in / clavulana te medicatio n Not available Not available Not available 05/28/20252011 01601 RxNorm GI UPSET Not Available [employer] [employer] - prod 5 12:12:37 211759 moxifloxa jovana hydrochlo ride medicatio n Not available Not available Not available 05/28/20252011 21580 0 RxNorm Not Available [employer] [employer] - prod 5 12:12:37 210872 caffeine food,medi cation Not available Not available Not available 05/28/20252011 1886 RxNorm Not Available [facility] [employer] - prod 5 12:12:37 192414 chloramph enicol medicatio n Not available Not available Not available 05/28/20252011 2348 RxNorm Not Available [employer] [employer] - prod 5 12:12:37 534481 codeine medicatio n Not available Not available Not available 05/28/20252011 2670 RxNorm Not Available [facility] [employer] - prod 5 12:12:37 805144 erythromy jovana medicatio n Not available Not available Not available 05/28/20252011 4053 RxNorm Not Available [facility] [employer] [facility] [employer] - prod 5 12:12:37 840915 levofloxa jovana medicatio n hives Not available Not available 05/28/20252011 69240 RxNorm SWELL ING OF LIPS Not Available [facility] [facility] [employer] - prod 5 12:12:37 060537 acetamino phen / hydrocodo ne medicatio n Not available Not available Not available 05/28/20252011 20570 2 RxNorm Not Available [employer] - prod 5 12:12:37 680599 enoxapari n medicatio n Not available Not available Not available 05/28/20252011 59616 RxNorm Not Available [employer] - prod 5 12:12:37 541650 tetracycl ine medicatio n Not available Not available Not available 05/28/20252011 54043 RxNorm Not Available [employer] - prod 5 12:12:37 84235 clarithro mycin medicatio n Not available Not available Not available 03/31/20162011 12585 RxNorm Not Available [facility] 6 10:15:40 18106 wheat preparati on food,medi cation Not available Not available Not available 03/31/20162011 64124 52 RxNorm Not Available [facility] 6 10:15:41 81926 Cephalosp uzma (substanc e) medicatio n Not available Not available Not available 03/31/20162011 26259 7003 SNOMED Not Available [facility] 6 10:15:41 78312 erythromy jovana medicatio n Not available Not available Not available 03/31/20162011 4053 RxNorm Not Available [facility] 6 10:15:41 87430 Substance with sulfonami de structure and antibacte rial mechanism of action (substanc e) medicatio n Not available Not available Not available 03/31/20162011 81554 8003 SNOMED Not Available [facility] 6 10:15:41 45235 codeine sulfate medicatio n Not available Not available Not available 03/31/20162011 55190 RxNorm Not Available [facility] 6 10:15:41 32659 gentamici n sulfate medicatio n Not available Not available Not available 03/31/20162011 07041 93 RxNorm Not Available [facility] 6 10:15:41 Medications Name Sig Start Date Stop Date Status Note LastModified by Organization Details LastModified Time cyclobenz aprine 10 mg tablet 1 tablet po daily as needed for pain 09/10 completed Not Available Not Available Not Available amoxicill in 500 mg capsule TAKE ONE CAPSULE BY MOUTH TWICE DAILY -- FINISH ALL MEDICINE -- active Not Available Not Available No t Available carvedilo l 25 mg tablet 1 tablet po 3 times per day 09/10 completed Not Available Not Available Not Available carvedilo l 6.25 mg tablet TAKE TWO (2) TABLETS BY MOUTH TWICE DAILY 02/27 completed Not Available Not Available Not Available Vitamin B-12 1,000 mcg/mL injection solution 1 ml IM please 09/10 completed Not Available Not Available Not Available carvedilo l 12.5 mg tablet TAKE 1 TABLET BY MOUTH 2 TIMES A DAY active Not Available Not Available No t Available ipratropi um 0.5 mg-albute rol 3 mg (2.5 mg base)/3 mL nebulizat ion soln INHALE THREE (3) ML FOUR (4) TIMES A DAY BY NEBULIZA TION ROUTE FOR FIVE (5) DAYS. 11/15 completed Not Available Not Available Not Available haloperid ol 5 mg tablet TAKE 1 TABLET BY MOUTH EVERY EVENING active hasnt been taking Not Available Not Available Not Available atorvasta tin 10 mg tablet 01/29 completed Not Available Not Available Not Available nitroglyc jenny 0.3 mg sublingua l tablet PLACE 1 TABLET UNDER TONGUE EVERY 5 MINUTES IF NEEDED FOR CHEST PAIN; MAY REPEAT 2 TIMES; IF NO RELIEF AFTER 3 DOSES CALL 911 OR GO TO ER active Not Available Not Available No t Available valacyclo vir 1 gram tablet TAKE TWO (2) TABLETS BY MOUTH EVERY 12 HOURS (MORNING & NIGHT) FOR ONE (1) DAY. TAKE WITHIN 48 HOURS OF ONSET. 02/27 completed Not Available Not Available Not Available ondansetr on HCl 8 mg tablet [...] BY ORAL ROUTE FOR FIVE (5) DAYS. 02/27 completed Not Available Not Available Not Available isosorbid e mononitra te ER 30 mg tablet,ex tended release 24 hr 01/29 completed Not Available Not Available Not Available clonazepa m 0.5 mg tablet TAKE 1 TABLET BY MOUTH 2 TIMES A DAY NEEDED FOR panic attacks active Not Available Not Available No t Available metoprolo l succinate ER 100 mg [...] completed Not Available Not Available Not Available hydroxyzi ne pamoate 50 mg capsule TAKE ONE CAPSULE BY MOUTH TWICE DAILY NEEDED FOR SLEEP OR FOR ANXIETY active Not Available Not Available No t Available olanzapin e 10 mg tablet TAKE ONE TABLET BY MOUTH EVERY DAY active Not Available Not Available No t Available clopidogr el 75 mg tablet 01/29 completed Not Available Not Available Not Available acyclovir 400 mg tablet Take 1 tablet twice a day by oral route for 3 days. 05/17 completed Not Available Not Available Not Available ciproflox acin 500 mg tablet Take 1 tablet every 12 hours by oral route for 10 days. 10/26 completed Not Available Not Available Not Available amoxicill in 500 mg tablet Take 1 tablet twice a day by oral route for 7 days. 05/21 completed Not Available Not Available Not Available ondansetr on 8 mg disintegr ating tablet 09/10 completed Not Available Not Available Not Available meloxicam 7.5 mg tablet Take 1 tablet twice a day by oral route after meal(s) for 30 days. 02/27 completed Not Available Not Available Not Available Tessalon Perles 100 mg capsule Take 1 capsule 3 times a day by oral route for 10 days. 09/10 completed Not Available Not Available Not Available ceftriaxo ne 1 gram solution for injection Take 1 g by injectio n route. 09/23 completed Not Available Not Available Not Available Nitrostat 0.4 mg sublingua l tablet active Not Available Not Available Not Available nifedipin e ER 60 mg tablet,ex tended release 24 hr Take 1 tablet every day by oral route. 2024 active Not Available Not Available Not Avai lable oxycodone -acetamin ophen 10 mg-325 mg tablet 09/02 completed oxycodon e-acetam inophen 10-325 mg oral tablet;R ecorded Status: Recorded on: 05/06/20 12 2:42PM;D iscontin ued Status: Disconti nued on: 09/03/19 16 9:34AM;U ser: [email or web address] Not Available Not Available Not Available nicotine (polacril ex) 4 mg gum chew 1 piece PER package instruct ions NEEDED FOR smoking cessatio n 02/27 completed Not Available Not Available Not Available dicyclomi [...] ed on: 09/03/19 16 12:23PM; User: [email or web address]; Est. Completi on: 09/10/19 16;Pharm acyVerif ied: 09/03/19 16 12:23PM Not Available Not Available Not Available pantopraz ole 40 mg tablet,de layed release 1 tablet po once daily 09/10 completed Not Available Not Available Not Available mirtazapi ne 30 mg tablet TAKE 1 AND 1/2 TABLET BY MOUTH EVERY DAY active Not Available Not Available No t Available lisinopri l 10 mg tablet 01/29 completed Not Available Not Available Not Available bupropion HCl 75 mg tablet TAKE 1 TABLET BY MOUTH 2 TIMES A DAY. TAKE 6 HOURS APART 02/27 completed states she can't take this Not Available Not Available Not Available gabapenti n 300 mg capsule 01/29 completed Not Available Not Available Not Available aspirin 81 mg chewable tablet chew one tablet BY MOUTH ONCE A DAY active Not Available Not Available No t Available hydrochlo rothiazid e 25 mg tablet TAKE 1 TABLET BY MOUTH ONCE A DAY active Not Available Not Available No t Available mupirocin 2 % topical ointment APPLY TO THE AFFECTED AREA(S) 3 TIMES A DAY active Not Available Not Available No t Available mirtazapi ne 15 mg tablet TAKE 1 TABLET BY MOUTH ONCE A DAY active Not Available Not Available No t Available irbesarta n 150 mg tablet TAKE 1 TABLET BY MOUTH ONCE A DAY 09/05 /2025 completed Not Available Not Available Not Available Aspir-81 mg tablet,de layed release Take 1 tablet every day by oral route. 01/07 completed Not Available Not Available Not Available albuterol sulfate HFA 90 mcg/actua tion aerosol inhaler INHALE 2 PUFFS BY MOUTH EVERY 4 HOURS active Not Available Not Available No t Available Lomotil 2.5 mg-0.025 mg tablet Take 1 tablet 4 times a day by oral route as directed for 4 days. 01/29 completed Not Available Not Available Not Available Vitamin D2 1,250 mcg (50,000 unit) capsule take 1 capsule by oral route once daily 09/10 completed Not Available Not Available Not Available nifedipin e ER 60 mg tablet,ex tended release TAKE 1 TABLET BY MOUTH ONCE A DAY active Not Available Not Available No t Available ondansetr on 4 mg disintegr ating tablet Take 1 tablet by oral route as directed for 4 days. 01/29 completed Not Available Not Available Not Available cefdinir 300 mg capsule 01/29 completed Not Available Not Available Not Available fluticaso ne propionat e 50 mcg/actua tion nasal spray,[facility] 11/15 completed Not Available Not Available Not Available Augmentin 500 mg-125 mg tablet Take 1 tablet every 12 hours by oral route for 10 days. 03/29 completed Not Available Not Available Not Available [...] 16 9:34AM;U ser: [email or web address]; Est. Completi on: 05/19/20 15;Indic ation: sinusi - (-5) Not Available Not Available Not Available Coreg one bid 09/02 completed coreg 6.25 mg;Recor ded Status: Recorded on: 05/07/20 12 9:44PM;D iscontin ued Status: Disconti nued on: 09/03/19 16 9:34AM;U ser: sue Est. Completi on: 06/06/20 12;Indic ation: htn [...] Disconti nued on: 03/04/20 15 8:38AM;U ser: [email or web address]; Est. Completi on: 06/03/20 14;Indic ation: itching - (-5) Not Available Not Available Not Available Keflex one tid 05/27 completed keflex 500 mg.;Lionel rded Status: Recorded on: 04/28/20 14 11:36AM; Disconti nued Status: Disconti nued on: 05/27/20 14 9:26PM;U ser: [email or web address]; Est. Completi on: 05/08/20 14;Indic ation: cough [...] INJECT 100 ML INTRAVEN OUSLY EVERY YEAR 02/27 completed Not Available Not Available Not Available Amitiza 8 mcg capsule 09/10 completed [...] completed Not Available Not Available Not Available Tanmay DM Cough and Chest one tsp qid [...] 16 9:34AM;U ser: [email or web address]; Est. Completi on: 05/16/20 15;Indic ation: sinus - (-5) Not Available Not Available Not Available Vitals Date Recorded Body height Body mass index (BMI) Body weight Heart rate Body temperature Oxygen saturation Respiratory rate Pain severity - 0-10 verbal numeric rating [Score] - Reported Systolic And Diastolic Provider Name and Address Organization Details Last Updated DateTime 5 152.4 cm 17.2 kg/m2 89121.1 3 g 90 /min 98.1 [degF] 98 % 22 /min 0 152/82 mm[Hg] Brenda Alanis [place] - [facility] 5 11:30:51 Date Recorded Body height Body mass index (BMI) Body weight Body temperature Heart rate Oxygen saturation Respiratory rate Pain severity - 0-10 verbal numeric rating [Score] - Reported Systolic And Diastolic Provider Name and Address Organization Details Last Updated DateTime 5 152.4 cm 17.5 kg/m2 58204.5 9 g 97.9 [degF] 64 /min 99 % 18 /min 0 124/80 mm[Hg] Brenda MCKEE - [facility] 5 10:52:17 Date Recorded Body height Body mass index (BMI) Body weight Heart rate Oxygen saturation Respiratory rate Pain severity - 0-10 verbal numeric rating [Score] - Reported Body temperature Systolic And Diastolic Provider Name and Address Organization Details Last Updated DateTime 5 152.4 cm 17.2 kg/m2 73554.8 3 g 88 /min 97 % 18 /min 8 98 [degF] 152/90 mm[Hg] Brenda Alanis [place] - [facility] 5 14:51:50 Date Recorded Body height Body mass index (BMI) Body weight Heart rate Body temperature Oxygen saturation Respiratory rate Pain severity - 0-10 verbal numeric rating [Score] - Reported Systolic And Diastolic Provider Name and Address Organization Details Last Updated DateTime 5 152.4 cm 17.8 kg/m2 87479.3 1 g 87 /min 98.1 [degF] 96 % 18 /min 3 152/90 mm[Hg] Brenda Alanis [place] - [facility] 5 14:03:59 Date Recorded Body height Respiratory rate Body mass index (BMI) Body weight Heart rate Oxygen saturation Body temperature Systolic And Diastolic Provider Name and Address Organization Details Last Updated DateTime 5 152.4 cm 18 /min 17.8 kg/m2 74660.9 1 g 78 /min 97 % 97.9 [degF] 134/82 mm[Hg] Teressa Natty [place] - [facility] 5 13:43:02 Social History Question Answer Notes LastModified by Organizat ion Details LastModified Time Tobacco Smoking Status Current Every Day Smoker Juhi rubi [place] - [facility] 08/24/2016 10:43:12 Able To [...] How Much Tobacco Do You Chew? None [email or web address] Information not available 10/10/2016 In The 14 Days Before Symptom Onset, Have You Had Close Contact With A Laboratory-confi rmed COVID-19 While That Case Was Ill? No [email or web address] Information not available 11/16/2023 In The 14 Days Before Symptom Onset, Have You Had Close Contact With A Person Who Is Under Investigation For COVID-19 While That Person Was Ill? No Information not available 11/16/2023 Have You Been To An Area Known To Be High Risk For COVID-19? No [email or web address] Information not available 11/16/2023 Are You Deaf Or Do You Have Serious Difficulty Hearing? No Information not available 08/24/2016 What Type Of Diet Are You Following? REGULAR Information not available 08/24/2016 Have You Processed Blood Or Body Fluids From An Ebola Virus Disease Patient Without Appropriate PPE? No Information not available 11/16/2023 Do You Reside In Or Have You Traveled To An Area Where Ebola Virus Transmission Is Active? No [email or web address] Information not available 11/16/2023 What Is The Highest Grade Or Level Of School You Have Completed Or The Highest Degree You Have Received? [id number] [email or web address] Information not available 11/16/2023 Swimming/diving No [email or web address] Informati on not available 10/10/2016 Have There Been Any Changes To Your Family Or Social Situation? Yes Has Moved Back To [place] From [place] Information not available 09/11/2023 What Is The Fluoride Status Of Your Home? Fluoridated Information not available 09/11/2023 Hard Of Hearing Or Deaf In One Or Both Ears? No Information not available 08/24/2016 Have You Recently Or Are You Planning To Travel To An Area With Zika Virus? No [email or web address] Information not available 11/16/2023 Legally Blind In One Or Both Eyes? No Information not available 08/24/2016 Do You Have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
--- OUTSIDE RECORDS SUMMARY | 2025-06-22 16:33 | XMS_ITS | Patient Health Record ---
Author Organization [facility] Billing Info Address [address] [place] [address] Phone [phone] Support Name Relationship Address Phone Samantha Rabago Self - patient is the insured [address] [place] [address] [phone] Allergies Allergen (clinical drug ingredient) Drug/Non Drug Allergy documented on EMR Reaction Allergy Type Onset Date Status azithromycin Azithromycin Unknown Drug Allergy A ctive codeine Codeine Sulfate Unknown Drug Allergy A ctive Levaquin Unknown Drug Allergy Active Sulfamethoxazole Unknown Drug Allergy Active Reason For Referral No Information Medications Medication SIG (Take, Route, Frequency, Duration) Notes Start Date End Date Diagnosis (ICD Code) Status Amoxicillin 875 MG Tablet 1 tablet Orally Twice a day; Duration: 5 day(s) 03/10/2021 Sore throat (ICD_10 - J02.9) Active Aspir-81 Active Nitroglycerin Active Cetirizine HCl 10 MG Tablet 1 capsule Orally Once a day Sinus drainage (ICD_10 - J34.89) Active Wellbutrin Active Fluticasone Propionate 50 MCG/ACT Suspension 2 spray in each nostril Nasally Once a day Sinus drainage (ICD_10 - J34.89) Active Clonidine HCl Active Amlodipine Besylate Acti ve Albuterol Active Social History Sex Observation Social History Observation Description Sex Observation Female Social History Social History Social Info Question Answer Notes Alcohol Use: Patient does not use alcohol *DO NOT USE * Tobacco Status (CQW): Patient is Curr ent every day smoker Problems Problem Type SNOMED Code ICD Code Dates Problem Status W/U Status Risk Notes Problem Sore throat (144561911) Sore throat (J02.9) Added On: 021 Active confirmed Problem Disorder of nasal sinus (disorder) (2002587) Sinus drainage (J34.89) Added On: 021 Active confirmed Plan Of Treatment No Information Insurance Providers Payer Name Payer Address Payer Phone Subscriber Number Group Number Insured Name Patient Relationship to Insured Coverage Start Date Coverage End Date [employer] PPO MEDICARE [address] [address] [place], [place] [id number] Samantha Rabago Self - patient is the insured 1 Medical (General) History Surgical History Surgery Date(Month/Year) appendectomy wrist surgery
--- OUTSIDE RECORDS SUMMARY | 2025-06-22 16:33 | XMS_ITS | Clinical Summary ---
Author Organization [facility] Address [address] [place] [address] Phone Care Team Providers Care Fabrication Operator Name Role Phone Fahad Cortez MD Primary Care Provider [phone] Allergies Active Allergy Reactions Criticality Noted Date [...] Active fluticasone propionate (FLONASE) 50 mcg/actuation Nasl Nebo, Suspension by Nasal route daily. Active dicyclomine (BENTYL) 10 mg Oral Capsule Take by mouth as needed. Active sucralfate (CARAFATE) 1 gram Oral Tablet Take by mouth 4 times daily. Active [id number] dqp-HlLf-SEv-asb -C (PLENVU) 140-9-5.2 gram Oral Powder in [...] (01/16/2024): Added automatically from request for surgery [id number] Coronary arteriosclerosis 03/01/2017 Gastroenteritis 10/10/2016 Hypertensive disorder [...] FIT 2005 Sigmoidoscopy 2005 Virtual Colonography 2005 RSV or 60+ (1 - Ris k 50-74 years 1-dose series) 2010 Zoster (1 of 2) 2010 COVID-19 Vaccine ( - 2024-2 6 season) 2025 Influenza Vaccine (#1) 2025 05/08/2013 DTaP/TDaP/Td (2 - Td or Tdap) 01/31/2028 [...] Kamaljit Petit MD 01/16/2024 [address] PRESIDENT CEO [employer] FOUNDER ENDOSCOPY PROCEDURE ORDERA BLES Final Result from Last 3 Months or Most Recently Relevant to Health Maintenance Insurance [employer] MEDICARE PPO MR [employer] MEDICARE PPO MR Care Teams Fabrication Operator Relationship Specialty Start Date End Date Fahad Cortez MD [address] [place] [address] PCP - General Family Medicine 01/16/24
--- OUTSIDE RECORDS SUMMARY | 2025-06-22 16:33 | XMS_ITS | Encounter Summary ---
Author Organization Healthcare Address [address] [place] [address] Care Team Providers Care Automobiles Salesperson Name Role Phone Yennifer Mcgee Primary Care Provider [phone] Amberly Childs LPN Unavailable Unavailable Encounter Details Date Type Department Care Team (Late st Contact Info) Description 10/08/2024 Lab Requisition [facility] [address] [place] [address] Yennifer Mcgee PA [address] [place] [address] Routine general medical examination at [...] often do you attend chur ch or temple services? Never 10/08/2024 Do you belong to any clubs o r organizations such as anabaptist groups, unions, fraternal or athletic groups, or [...] one occasion? Never 10/08/2024 [facility]ational Stress Questionnaire Answer Date [...] any time in the past 12 m [facility], were you homeless or living in a senior care (including now)? No 10/08/2024 Utilities Answer Date [...] as of this encounter Plan of Treatment Not on file documented as of this encounter Visit Diagnoses Diagnosis Routine general medical examination at a health care facility documented in this encounter Additional Health Concerns Assessment Noted Time A Body Mass Index follow-up plan has been documented for the patient 10/14/2024 2:47 PM EDT documented as of this encounter Care Teams Automobiles Salesperson Relationship Specialty Start Date End Date Yennifer Mcgee PA [address] [place] [address] PCP - General Psychiatry 10/03/24 Amberly Childs LPN None None TCM Nurse 10/09/24 11/14/24 documented as of this encounter
--- OUTSIDE RECORDS SUMMARY | 2025-06-22 16:33 | XMS_ITS | Encounter Summary ---
Author Organization Healthcare Address [address] [place] [address] Care Team Providers Care Dairy Feed Mixing Operator Name Role Phone Yennifer Mcgee Primary Care Provider [phone] Amberly Childs LPN Unavailable Unavailable Encounter Details Date Type Department Care Team (Late st Contact Info) Description 10/06/2024 Lab Requisition [facility] [address] [place] [address] Yennifer Mcgee PA [address] [place] [address] Routine general medical examination at [...] often do you attend chur ch or adventism services? Never 10/08/2024 Do you belong to any clubs o r organizations such as scientologist groups, unions, fraternal or athletic groups, or [...] more drinks on one occasion? Never 10/08/2024 [facility] Stress Questionnaire Answer Date [...] in the past 12 m [facility], were you homeless or living in a snf (including now)? No 10/08/2024 Utilities Answer Date [...] documented as of this encounter Care Teams Dairy Feed Mixing Operator Relationship Specialty Start Date End Date Yennifer Mcgee PA [address] [place] [address] PCP - General Psychiatry 10/03/24 Amberly Childs LPN None None TCM Nurse 10/09/24 11/14/24 documented as of this encounter
--- OUTSIDE RECORDS SUMMARY | 2025-06-22 16:33 | XMS_ITS | Continuity of Care Document ---
Author Organization [facility] [place] Address [address] [place] [address] Care Team Providers Care Metal Riveter Name Role Phone AMAYA GARZA OTHER [phone] Assessment No assessment recorded. Plan of Treatment Reminders Order Date Submit Date Provider Last Modified By Organization Details Last Modified Time Details Appointments Follow Up 2025 02:00P M Parmjit Lawrence APRN Not available Not available Not available Lab None recorded. Referral gastroent erologist referral 2024 025 YUNIEL Sprague MD, [address], [place], [address], 06/01/2025 04:04:12 Procedures None recorded. Surgeries None recorded. Imaging None recorded. Medication Orders clonazepa m 0.5 mg tablet 2024 YUNIEL Treviño [facility], [address] [address] [address], [place], [id number], 04/17/2025 09:09:16 Patient TargetsNo targets recorded. Patient InstructionsNo instructions recorded. Reason for Referral Information Scientist Referral for Chronic diarrhea Referring Physician: Parmjit Lawrence, [facility] Medicine, Encounter Date: 04/06/2025 Problems Name Problem SNOMED Code Status Onset Date Resolution Date Notes Provider Name and Address Organization Details Recorded Time Condyloma Active anal- shave biopsy Bela Richardson APRN [address], [place], [address], [place] - [facility] 4 23:37:35 Depressive disorder 35568536 Active 2016 Bela Richardson APRN [address], [place], [address], [place] [facility] 4 19:06:43 Hypertensi ve disorder 27111376 Active 2016 Bela Richardson SURGICAL PATHOLOGIST [address], [place], [address], [place] [facility] 4 19:06:49 Irritable bowel syndrome 03230119 Active 2016 Bela Richardson APRN [address], [place], [address], [place] [facility] 4 19:06:55 Osteoporos is 63310962 Active 2016 Bela Richardson SURGICAL PATHOLOGIST [address], [place], [address], [place] [facility] 4 19:07:02 Panic disorder 109405838 Active 2016 Bela Richardson APRN [address], [place], [address], [place] [facility] 4 19:07:05 Gastroente ritis 52737031 Completed 201611/19/2023 Bela Richardson APRN [address], [place], [address], [place] [facility] 4 19:06:34 Coronary arterioscl erosis 73172751 Active 2016 Bela Richardson APRN [address], [place], [address], [place] [facility] 4 19:06:40 Chronic obstructiv e pulmonary disease 53590449 Active 2016 Bela Richardson APRN [address], [place], [address], [place] [facility] 4 19:06:37 Tobacco user 968822643 Active 2023 Bela Richardson SURGICAL PATHOLOGIST [address], [place], [address], [place] [facility] 4 19:07:14 Screening for malignant neoplasm of respirator y tract Active 2023 Bela Richardson APRN [address], [place], [address], [place] [facility] 4 19:07:09 Nicotine dependence with current use 900032732 Active 2023 Bela Richardson APRN [address], [place], [address], [place] [facility] 4 19:06:59 History of abnormal cervical Papanicola ou smear 318569410 Active 2023 Bela Richardson APRN [address], [place], [address], [place] [facility] 4 19:06:45 Squamous cell carcinoma of anal margin 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 Active 2023 Bela Richardson APRN [address], [place], [address], [place] [facility] 4 23:34:55 Placement of stent in cardiac conduit Active 2023 x4 Bela Richardson APRN [address], [place], [address], [place] [facility] 4 23:37:37 Pulmonary emphysema 31839888 Active 2023 Bela Richardson APRN [address], [place], [address], [place] [facility] 4 23:37:07 Mixed anxiety and depressive disorder 610905414 Active 2023 Bela Richardson APRN [address], [place], [address], [place] [facility] 4 23:37:19 Anxiety 79067154 Active 2024 Teressaparas Luz [facility], [place] - [facility] 5 13:37:42 Problem Notes None recorded. Procedures Surgical History Date Name Laterality Status Provider Name and Address Organization Details Recorded Time 01/16/20 24 Date of Last Colonoscopy completed Bela Richardson APRN [address], [place], [address], [place] - [facility] 04/22/2024 21:07:03 01/08/20 24 Cerumen Removal completed Korina Mullins APRN [address], [place], [address], [place] [facility] 01/08/2024 17:19:48 01/08/20 24 Most Recent Bone Density completed Bela Richardson APRN [address], [place], [address], [place] [facility] 06/20/2024 21:23:00 12/21/19 24 Date of Last Mammogram completed Stephy Ramos [place] - [facility] 01/10/2024 13:16:18 12/04/19 24 Colposcopy completed Tara Parks MD [address], [place], [address], [place] [facility] 12/04/2023 10:17:03 12/04/19 24 Colposcopy completed Tara Parks MD [address], [place], [address], [place] [facility] 12/20/2023 13:11:31 11/16/19 24 Date of Last Pap Smear completed Bela Richardson APRN [address], [place], [address], [place] [facility] 11/23/2023 14:08:46 09/11/19 24 Nebulizer tx completed Marah Santa [place] - [facility] 09/11/2023 14:31:27 10/28/19 22 operation on rectum completed Bela Richardson APRN [address], [place], [address], [place] [facility] 11/25/2023 23:41:01 Adenoidectomy completed [...] Name and Address Organization Details Recorded Time 799218 neomycin medicatio n Not available Not available Not available 11/25/2023 7299 RxNorm Bela Richardson, SURGICAL PATHOLOGIST [address], [place], [address], [place] [facility] 4 23:38:26 930322 Cipro medicatio n Not available Not available Not available 01/08/2024 66201 3 RxNorm Bina Porter null, [place] - [facility] 4 16:49:08 291863 amoxicill in / clavulana te medicatio n Not available Not available Not available 05/28/20252011 03814 RxNorm GI UPSET Not Available yuniel - External Data Service - prod 5 12:12:37 525092 moxifloxa jovana hydrochlo ride medicatio n Not available Not available Not available 05/28/20252011 81422 0 RxNorm Not Available yuniel - External Data [employer] - prod 5 12:12:37 324346 caffeine food,medi cation Not available Not available Not available 05/28/20252011 1886 RxNorm Not Available yuniel - External Data Service - prod 5 12:12:37 328998 chloramph enicol medicatio n Not available Not available Not available 05/28/20252011 2348 RxNorm Not Available yuniel - External Data Service - prod 5 12:12:37 324240 codeine medicatio n Not available Not available Not available 05/28/20252011 2670 RxNorm Not Available yuniel - External Data Service - prod 5 12:12:37 701428 erythromy jovana medicatio n Not available Not available Not available 05/28/20252011 4053 RxNorm Not Available yuniel - External Data Service - prod 5 12:12:37 265806 levofloxa jovana medicatio n hives Not available Not available 05/28/20252011 62378 RxNorm SWELL ING OF LIPS Not Available yuniel - External Data Service - prod 5 12:12:37 578867 acetamino phen / hydrocodo ne medicatio n Not available Not available Not available 05/28/20252011 64277 2 RxNorm Not Available yuniel - External Data Service - prod 5 12:12:37 058257 enoxapari n medicatio n Not available Not available Not available 05/28/20252011 95903 RxNorm Not Available yuniel - External Data Service - prod 5 12:12:37 635464 tetracycl ine medicatio n Not available Not available Not available 05/28/20252011 95465 RxNorm Not Available yuniel - External Data Service - prod 5 12:12:37 89327 clarithro mycin medicatio n Not available Not available Not available 03/31/20162011 19436 RxNorm Not Available [facility] 6 10:15:40 49688 wheat preparati on food,medi cation Not available Not available Not available 03/31/20162011 16861 52 RxNorm Not Available [facility] 6 10:15:41 82274 Cephalosp uzma (substanc e) medicatio n Not available Not available Not available 03/31/20162011 64420 7003 SNOMED Not Available [facility] 6 10:15:41 19096 erythromy jovana medicatio n Not available Not available Not available 03/31/20162011 4053 RxNorm Not Available [facility] 6 10:15:41 12360 Substance with sulfonami de structure and antibacte rial mechanism of action (substanc e) medicatio n Not available Not available Not available 03/31/20162011 20196 8003 SNOMED Not Available [facility] 6 10:15:41 29442 codeine sulfate medicatio n Not available Not available Not available 03/31/20162011 04783 RxNorm Not Available [facility] 6 10:15:41 19149 gentamici n sulfate medicatio n Not available Not available Not available 03/31/20162011 85243 93 RxNorm Not Available [facility] 6 10:15:41 Medications Name Sig [...] on: 09/03/19 16 12:23PM; User: anel; EstAndie Completi on: 09/10/19 16;Pharm acyVerif ied: 09/03/19 [...] 1 TABLET BY MOUTH ONCE A DAY 02/27 completed Not Available Not Available Not [...] 16 9:34AM;U ser: sue Est. Completi on: 05/19/20 15;Indic ation: sinusi [...] nued on: 04/28/20 14 11:36AM; User: sue Templeton on: 04/16/20 14;Indic ation: infect - [...] 16 9:34AM;U ser: adrianna; Est. Completi on: 06/24/20 14;Indic ation: itching - (-5) Not Available Not Available Not Available prednison e increasi ng decreasi ng dosage 03/04 completed predison e 5 mg.;Lionel rded Status: Recorded on: 05/27/20 14 9:26PM;D iscontin ued Status: Disconti nued on: 03/04/20 15 8:38AM;U ser: adrianna; Est. Completi on: 06/03/20 14;Indic ation: itching - (-5) Not Available Not Available Not Available Keflex one tid 05/27 completed keflex 500 mg.;Lionel rded Status: Recorded on: 04/28/20 14 11:36AM; Disconti nued Status: Disconti nued on: 05/27/20 14 9:26PM;U ser: adrianna; Est. Completi on: 05/08/20 14;Indic ation: cough [...] (1) KIT PER PHYSICIA N INSTRUCT IONS 07/16 /2024 completed Not Available Not Available Not Available [...] on: 04/28/20 14 11:36AM; User: adrianna; Est. Completcarolyn on: 05/14/20 12;Indic ation: cough - (-5) [...] Updated DateTime 5 152.4 cm 17.8 kg/m2 38588.3 1 g 87 /min 98.1 [degF] 96 % 18 /min 3 152/90 mm[Hg] Brenda Alanis [place] - [facility] 14:03:59 Social History Question Answer Notes LastModified by Organizat ion Details LastModified Time Tobacco Smoking Status Current Every Day Smoker [place] - [facility] 08/24/2016 10:43:12 Able To Swim? [...] How Much Tobacco Do You Chew? None Information not available 10/10/2016 In The 14 Days Before Symptom Onset, Have You Had Close Contact With A Laboratory-confi rmed COVID-19 While That Case Was Ill? No [email or web address] Information not available 11/16/2023 In The 14 Days Before Symptom Onset, Have You Had Close Contact With A Person Who Is Under Investigation For COVID-19 While That Person Was Ill? No Information not available 11/16/2023 Have You Been To An Area Known To Be High Risk For COVID-19? No [email or web address] Information not available 11/16/2023 Are You Deaf Or Do You Have Serious Difficulty Hearing? No Information not available 08/24/2016 What Type Of Diet Are You Following? REGULAR Information not available 08/24/2016 Have You Processed Blood Or Body Fluids From An Ebola Virus Disease Patient Without Appropriate PPE? No [email or web address] Information not available 11/16/2023 Do You Reside In Or Have You Traveled To An Area Where Ebola Virus Transmission Is Active? No [email or web address] Information not available 11/16/2023 What Is The Highest Grade Or Level Of School You Have Completed Or The Highest Degree You Have Received? [id number] [email or web address] Information not available 11/16/2023 Swimming/diving No [email or web address] Informati on not available 10/10/2016 Have There Been Any Changes To Your Family Or Social Situation? Yes Has Moved Back To [place] From [place] Information not available 09/11/2023 What Is The Fluoride Status Of Your Home? Fluoridated Information not available 09/11/2023 Hard Of Hearing Or Deaf In One Or Both Ears? No Information not available 08/24/2016 Have You Recently Or Are You Planning To Travel To An Area With Zika Virus? No [email or web address] Information not available 11/16/2023 Legally Blind In One Or Both Eyes? No Information not available 08/24/2016 Do You Have A Medical Power Of Industrial Specialist? No Information not available 09/11/2023 What Was The Date Of Your Most Recent Tobacco Screening? 02/27/2025 [email or web address] Information not available 02/27/2025 How Many Children Do You Have? 1 [email or web address] Information not available 11/16/2023 What Is Your Current Pack Years? [email or web address] ars Information not available 09/11/2023 What Is Your Relationship Status? Information not available 08/24/2016 Seat Belts Used Routinely Yes Information not available 08/24/2016 Are You Sexually Active? No Information not available 11/16/2023 Smoke Alarm In Home Yes [email or web address] Information not available 10/10/2016 Do You Have Smoke And Carbon Monoxide Detectors In Your Home? Yes Information not available 09/11/2023 At What Age Did You Start Smoking Tobacco? 16 Information not available 09/11/2023 Are You Passively Exposed To Smoke? Yes [email or web address] Information not available 10/10/2016 How Much Tobacco Do You Smoke? 2 PPD Information not available 09/11/2023 General Stress Level Medium [email or web address] Information not available 10/10/2016 Do You Use Sunscreen Routinely? No [email or web address] Information not available 10/10/2016 Has Tobacco Cessation [...] 09/11/2023 Are you currently employed? No Retired [email or web address] Information not available 11/16/2023 Do you have transportation difficulties? No Information not available 09/11/2023 What is your status? Not [email or web address] Information no t available 11/16/2023 Are you [...] 08/24/2016 What is your exercise level? Occasional [email or web address] Information not available 10/10/2016 Mental Status Question Answer Note LastModified by Organizat ion Details LastModified Time Do you feel stressed (tense, restless, nervous, or anxious, or unable to sleep at night)? [id number] Information not available 09/11/2023 Do you have [...] Vaccine Type Date Status Note Provider Louis e and Address Organization Details Recorded Time Tdap 8 completed Marah rubi, [place] - [facility] 09/11/2023 14:03:52 influenza, seasonal, intradermal, preservative free 3 completed Marah rubi, [place] - [facility] 09/11/2023 14:03:52 Past Encounters Encounter ID Performer Location Encounter Start Date Encounter Closed Date Diagnosis/Indication Diagnosis SNOMED-CT Code Diagnosis ICD10 Code Diagnosis IMO Codes Diagnosis Note [id number] Parmjit Lawrence APRN [address] [address] 03/12/2025 14:35:52 03/12/2025 15:30:08 Anxiety 91863377 F41.9 38095 will increase clonazepam to 0.5mg bid - can not fill 03/20hold mirtazapin e until seen by psychscrip t was sent in wrong- hometown notified and script cancelled and new script sent Panic attack 561981236 F 41.0 18291 Acute cellulitis 4883169 009 L03.90 0757674769 clean with soap and waterapply ointmentan tibiotics as orderedif worsen or no improvemen t return Acute righ t otitis media 612707508 H66.91 2064486 antibiotic stylenol or motrin as neededif worsen or no improvemen t return [id number] Parmjit Lawrence APRN [address] [address] 04/06/2025 13:48:02 04/06/2025 14:34:54 Mixed anxiety and depressive disorder 299523664 F41.9 uds: 5Pt compliant with plan of careKasper reviewedme dication compliance discussedC ontrol substance agreement on filefollow up with Ztory Generalize d abdominal pain 177323750 R10.84 237937 Chronic diarrhea 0352415 09 K52.9 79378 Anxiety 65586458 F41.9 Health Concerns Section Related Observation LastModified by Organization Detai ls LastModified Time None Recorded Concern Status LastModified by Organization Details LastModified Time None Recorded Payers Encounter Date Sequence Insurance Name Policy Number Policy Evans Covered Member ID Evans Member ID Guarantor Name 04/06/2025 1 [employer] (MEDICARE REPLACEMENT/A DVANTAGE - PPO) [id number] Samantha Rabago [id number] Samantha Rabago Notes Date Note Type Note Provider Name and Address Organization Details Recorded Time 04/06/2025 text/html 64 yr old female presents for a follow up on anxiety- she still needs a refill on her clonazepam- still has some left but wanted pharmacy to have it on hold for her. She was put on remeron and zyprexa by [facility]. pt states meds help her be able to do activities of daily living, states she was able to drive to office today for appointment. has appointment Thurs with Ztory. pt states she is still having abd pain and diarrhea would like to see gi Parmjit Lawrence APRN [address], [place], [address], [place] - [facility] 04/06/2025 14:39:18 OBGyn Episode No OBEpisode recorded.
--- OUTSIDE RECORDS SUMMARY | 2025-06-22 16:33 | XMS_ITS | Continuity of Care Document ---
[facility] Address [address] [place] [address] Care Team Providers Care Environmental Health Inspector Name Role Phone AMAYA GARZA OTHER Assessment No assessment recorded. Plan of Treatment Reminders Order Date Submit Date Provider Last Modified By Organization Details Last Modified Time Details Appointments Follow Up 2025 02:00P M Parmjit Lawrence APRN Not available Not available Not available Lab None recorded. Referral None recorded. Procedures None recorded. Surgeries None recorded. Imaging None recorded. Medication Orders acyclovir 400 mg tablet 2024 025 [facility], [address] [place] [address], [id number], 05/17/2025 05:01:29 amoxicill in 500 mg tablet 2024 025 [facility], [address] [place] [address], [id number], 05/21/2025 05:02:15 clonazepa m 0.5 mg tablet 2024 025 [facility], [address] [place] [address], [id number], 06/15/2025 09:53:48 Patient TargetsNo targets recorded. Patient InstructionsNo instructions recorded. Reason for Referral None Reported. Problems Name Problem SNOMED Code Status Onset Date Resolution Date Notes Provider Name and Address Organization Details Recorded Time Condyloma Active anal- shave biopsy Bela Richardson, [employer] [address], [place], [address], [place] [facility] 4 23:37:35 Depressive disorder 93319064 Active 2016 Bela Richardson [employer] [address], [place], [address], [place] [facility] 4 19:06:43 Hypertensi ve disorder 49043371 Active 2016 Bela Richardson [employer] [address], [place], [address], [place] [facility] 4 19:06:49 Irritable bowel syndrome 14565890 Active 2016 Bela Richardson APRN [address], [place], [address], [place] [facility] 4 19:06:55 Osteoporos is 62566523 Active 2016 Bela Richardson APRN [address], [place], [address], [place] [facility] 4 19:07:02 Panic disorder 133959599 Active 2016 Bela Richardson [employer] [address], [place], [address], [place] [facility] 4 19:07:05 Gastroente ritis 77690780 Completed 201611/19/2023 Bela Richardson APRN [address], [place], [address], [place] [facility] 4 19:06:34 Coronary arterioscl erosis 04365872 Active 2016 Bela Richardson [employer] [address], [place], [address], [place] [facility] 4 19:06:40 Chronic obstructiv e pulmonary disease 68254221 Active 2016 Bela Richardson [employer] [address], [place], [address], [place] [facility] 4 19:06:37 Tobacco user 615193283 Active 2023 Bela Richardson [employer] [address], [place], [address], [place] [facility] 4 19:07:14 Screening for malignant neoplasm of respirator y tract Active 2023 Bela Richardson APRN [address], [place], [address], [place] [facility] 4 19:07:09 Nicotine dependence with current use 111666275 Active 2023 Bela Richardson APRN [address], [place], [address], [place] [facility] 4 19:06:59 History of abnormal cervical Papanicola ou smear 886318007 Active 2023 Bela Richardson APRN [address], [place], [address], [place] [facility] 4 19:06:45 Squamous cell carcinoma of anal margin 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 Active 2023 Bela Richardson APRN [address], [place], [address], [place] [facility] 4 23:34:55 Placement of stent in cardiac conduit Active 2023 x4 Bela Richardson APRN [address], [place] , [place], [address], [place] [facility] 4 23:37:37 Pulmonary emphysema 85885629 Active 2023 Bela Richardson APRN [address], [place], [address], [place] [facility] 4 23:37:07 Mixed anxiety and depressive disorder 789289406 Active 2023 Bela Richardson APRN [address], [place], [address], [place] [facility] 4 23:37:19 Anxiety 49528846 Active 2024 Teressa Luz [facility], [place] - [facility] 5 13:37:42 Problem Notes None recorded. Procedures Surgical History Date Name Laterality Status Provider Name and Address Organization Details Recorded Time 01/16/20 Date of Last Colonoscopy completed Bela Richardson APRN [address], [place], [address], [place] [facility] 04/22/2024 21:07:03 01/08/20 24 Cerumen Removal completed Korina Mullins APRN [address], [place], [address], [place] - [facility] 01/08/2024 17:19:48 01/08/20 24 Most Recent Bone Density completed Bela iRchardson APRN [address], [place], [address], [place] - [facility] 06/20/2024 21:23:00 12/21/19 24 Date of Last Mammogram completed Stephy Ramos [place] - [facility] 01/10/2024 13:16:18 12/04/19 24 Colposcopy completed Tara Parks MD [address], [place], [address], [place] - [facility] 12/04/2023 10:17:03 12/04/19 24 Colposcopy completed Tara Parks MD [address], [place], [address], [place] - [facility] 12/20/2023 13:11:31 11/16/19 24 Date of Last Pap Smear completed Bela Richardson APRN [address], [place], [address], [place] - [facility] 11/23/2023 14:08:46 09/11/19 24 Nebulizer tx completed Marah Pratt [place] - [facility] 09/11/2023 14:31:27 10/28/19 22 operation on rectum completed Bela Richardson APRN [address], [place], [address], [place] [facility] 11/25/2023 23:41:01 Adenoidectomy completed [...] Name and Address Organization Details Recorded Time 345823 neomycin medicatio n Not available Not available Not available 11/25/2023 7299 [facility] Bela Richardson, [employer] [address], [place], [address], [place] [facility] 4 23:38:26 190366 Cipro medicatio n Not available Not available Not available 01/08/202493104 3 [facility] Bina Porter null, [place] - [facility] 4 16:49:08 851116 amoxicill in / clavulana te medicatio n Not available Not available Not available 05/28/20252011 81078 RxNorm GI UPSET Not Available [employer] - prod 5 12:12:37 357575 moxifloxa jovana hydrochlo ride medicatio n Not available Not available Not available 05/28/20252011 14694 0 RxNorm Not Available [employer] - prod 5 12:12:37 475945 caffeine food,medi cation Not available Not available Not available 05/28/20252011 1886 RxNorm Not Available [employer] - [employer] - prod 5 12:12:37 577061 chloramph enicol medicatio n Not available Not available Not available 05/28/20252011 2348 RxNorm Not Available [employer] - prod 5 12:12:37 773219 codeine medicatio n Not available Not available Not available 05/28/20252011 2670 RxNorm Not Available [employer] [facility] [employer] - prod 5 12:12:37 584331 erythromy jovana medicatio n Not available Not available Not available 05/28/20252011 4053 RxNorm Not Available [employer] - prod 5 12:12:37 013282 levofloxa jovana medicatio n hives Not available Not available 05/28/20252011 79148 RxNorm SWELL ING OF LIPS Not Available [employer] - [employer] - prod 5 12:12:37 089235 acetamino phen / hydrocodo ne medicatio n Not available Not available Not available 05/28/20252011 18167 2 RxNorm Not Available [employer] [facility] [employer] - prod 5 12:12:37 862663 enoxapari n medicatio n Not available Not available Not available 05/28/20252011 31330 RxNorm Not Available [employer] [facility] [employer] - prod 5 12:12:37 781176 tetracycl ine medicatio n Not available Not available Not available 05/28/20252011 62918 RxNorm Not Available [facility] External [employer] - prod 5 12:12:37 82008 clarithro mycin medicatio n Not available Not available Not available 03/31/20162011 65359 RxNorm Not Available [facility] 6 10:15:40 67638 wheat preparati on food,medi cation Not available Not available Not available 03/31/20162011 49463 52 RxNorm Not Available [facility] 6 10:15:41 83049 Cephalosp uzma (substanc e) medicatio n Not available Not available Not available 03/31/20162011 15285 7003 SNOMED Not Available [facility] 6 10:15:41 17922 erythromy jovana medicatio n Not available Not available Not available 03/31/20162011 4053 RxNorm Not Available [facility] 6 10:15:41 56744 Substance with sulfonami de structure and antibacte rial mechanism of action (substanc e) medicatio n Not available Not available Not available 03/31/20162011 64164 8003 SNOMED Not Available [facility] 6 10:15:41 61490 codeine sulfate medicatio n Not available Not available Not available 03/31/20162011 62329 RxNorm Not Available [facility] 6 10:15:41 42621 gentamici n sulfate medicatio n Not available Not available Not available 03/31/20162011 13272 93 RxNorm Not Available [facility] 6 10:15:41 Medications Name Sig Start [...] on: 09/03/19 16 12:23PM; User: anel; EstAndie Completcarolyn on: 09/10/19 16;Pharm acyVerif ied: 09/03/19 16 [...] nued on: 09/03/19 16 9:34AM;U ser: sue EstAndie Completcarolyn on: 05/19/20 15;Indic ation: sinusi - (-5) Not Available Not Available Not Available Coreg one bid 09/02 completed coreg 6.25 mg;Recor ded Status: Recorded on: 05/07/20 12 9:44PM;D iscontin ued Status: Disconti nued on: 09/03/19 16 9:34AM;U ser: sue EstAndie Completi on: 06/06/20 12;Indic ation: htn - [...] nued on: 04/28/20 14 11:36AM; User: sue Est. Completi on: 04/15/20 14;Indic ation: leg bites - [...] 04/28/20 14 11:36AM; User: sue Templeton on: 05/14/20 12;Indic ation: cough - (-5) Not Available Not Available Not Available Ceci-D one bid 09/02 completed ceci d 12 hr.;Lionel rded Status: Recorded on: 05/09/20 15 10:00AM; Disconti nued Status: Disconti nued on: 09/03/19 16 9:34AM;U ser: sue Est. Completi on: 05/16/20 15;Indic ation: sinus - (-5) Not Available Not Available Not Available Vitals Date Recorded Body height Respiratory rate Body mass index (BMI) Body weight Heart rate Oxygen saturation Body temperature Systolic And Diastolic Provider Name and Address Organization Details Last Updated DateTime 5 152.4 cm 18 /min 17.8 kg/m2 65695.9 1 g 78 /min 97 % 97.9 [degF] 134/82 mm[Hg] Teressa Luz [place] - [facility] 13:43:02 Social History Question Answer Notes LastModified [...] How Much Tobacco Do You Chew? None [email or web address] Information not available 10/10/2016 In The 14 Days Before Symptom Onset, Have You Had Close Contact With A Laboratory-confi rmed COVID-19 While That Case Was Ill? No [email or web address] Information not available 11/16/2023 In The 14 Days Before Symptom Onset, Have You Had Close Contact With A Person Who Is Under Investigation For COVID-19 While That Person Was Ill? No [email or web address] Information not available 11/16/2023 Have You Been To An Area Known To Be High Risk For COVID-19? No [email or web address] Information not available 11/16/2023 Are You Deaf Or Do You Have Serious Difficulty Hearing? No Information not available 08/24/2016 What Type Of Diet Are You Following? REGULAR Information not available 08/24/2016 Have You Processed Blood Or Body Fluids From An Ebola Virus Disease Patient Without Appropriate PPE? No [email or web address] Information not available 11/16/2023 Do You Reside In Or Have You Traveled To An Area Where Ebola Virus Transmission Is Active? No Information not available 11/16/2023 What Is The Highest Grade Or Level Of School You Have Completed Or The Highest Degree You Have Received? FD24110-5 [email or web address] Information not available 11/16/2023 Swimming/diving No [email or web address] Informati on not available 10/10/2016 Have There Been Any Changes To Your Family Or Social Situation? Yes Has Moved Back To [place] From [place] Information not available 09/11/2023 What Is The Fluoride Status Of Your Home? Fluoridated Information not available 09/11/2023 Hard Of Hearing Or Deaf In One Or Both Ears? No Information not available 08/24/2016 Have You Recently Or Are You Planning To Travel To An Area With Zika Virus? No [email or web address] Information not available 11/16/2023 Legally Blind In One Or Both Eyes? No Information not available 08/24/2016 Do You Have A Medical Power Of Complaint Supervisor? No Information not available 09/11/2023 What Was The Date Of Your Most Recent Tobacco Screening? 02/27/2025 [email or web address] Information not available 02/27/2025 How Many Children Do You Have? 1 Information not available 11/16/2023 What Is Your Current Pack Years? [email or web address] Information not available 09/11/2023 What Is Your Relationship Status? Information not available 08/24/2016 Seat Belts Used Routinely Yes Information not available 08/24/2016 Are You Sexually Active? No [email or web address] Information not available 11/16/2023 Smoke Alarm In Home Yes [email or web address] Information not available 10/10/2016 Do You Have Smoke And Carbon Monoxide Detectors In Your Home? Yes Information not available 09/11/2023 At What Age Did You Start Smoking Tobacco? 16 Information not available 09/11/2023 Are You Passively Exposed To Smoke? Yes [email or web address] Information not available 10/10/2016 How Much Tobacco Do You Smoke? 2 PPD Information not available 09/11/2023 General Stress Level Medium [email or web address] Information not available 10/10/2016 Do You Use Sunscreen Routinely? No [email or web address] Information not available 10/10/2016 Has Tobacco Cessation [...] Apply To Me/I Prefer Not To Answer [email or web address] Information not available 11/16/2023 Do You Have Any Future Plans To Get ? No, I Don't Want To Become [email or web address] Information not available 11/16/2023 Sex: Female Functional [...] 09/11/2023 Are you currently employed? No Retired [email or web address] Information not available 11/16/2023 Do you have transportation difficulties? No Information not available 09/11/2023 What is your status? Not Information no t available 11/16/2023 Are you [...] 08/24/2016 What is your exercise level? Occasional [email or web address] Information not available 10/10/2016 Mental Status Question Answer Note LastModified by Organizat ion Details LastModified Time Do you feel stressed (tense, restless, nervous, or anxious, or unable to sleep at night)? [id number] Information not available 09/11/2023 Do you have [...] available 2016 10:42:46 Medical History Condition Response Depression Y Panic Disorder Y Irritable Bowel Syndrome Y Hypertension Y Osteoporosis Y Gynecological History Statement/Question Response [...] ICD10 Code Diagnosis IMO Codes Diagnosis Note [id number] Parmjit Lawrence APRN [address] [address] 04/06/2025 13:48:02 04/06/2025 14:34:54 Mixed anxiety and depressive disorder 932230715 F41.9 uds: 5Pt compliant with plan of careKasper reviewedme dication compliance discussedC ontrol substance agreement on filefollow up with behavior health Generalize d abdominal pain 427089347 R10.84 934425 Chronic diarrhea 6819353 09 K52.9 88422 Anxiety 88722878 F41.9 [id number] Parmjit Lawrence APRN [facility] [address] [place] [address] 05/07/2025 13:31:26 05/07/2025 14:19:51 Mixed anxiety and depressive disorder 059886400 F41.9 uds: 5Pt compliant with plan of careKasper reviewedme dication compliance discussedC ontrol substance agreement on filefollow up with behavior health Anxiety 92459583 F41.9 Barry report obtained, reviewed, and made part of patient's medical record. After reviewing the history, physical exam and treatment options, prescribin g a controlled substance is considered medically appropriat e for treatment for anxiety control and improvemen t of function. The risks of tolerance and drug dependence were specifical ly discussed with the patient. All questions were answered. Otitis externa 6923889 H 60.8X2 9574406 pt allergic to all drops will send oral antibiotic 's Herpes labialis 2417482 B00.1 90066 Health Concerns Section Related Observation LastModified by Organization Detai ls LastModified Time None Recorded Concern Status LastModified by Organization Details LastModified Time None Recorded Payers Encounter Date Sequence Insurance Name Policy Number Policy Evans Covered Member ID Evans Member ID Guarantor Name 05/07/2025 1 [employer] (MEDICARE REPLACEMENT/A DVANTAGE - PPO) [id number] Samantha Rabago [id number] Samantha Rabago Notes Date Note Type Note Provider Name and Address Organization Details Recorded Time 05/07/2025 text/html ROS as noted in the [...] like rxneeds a medicare annual wellness Parmjit Lawrence APRN [address], [place], [address], [place] - [facility] 05/07/2025 14:25:27 OBGyn Episode No OBEpisode recorded.
[2025-06-22 16:37] LABS: Hematocrit 47.8 % (37.0-47.0); Hemoglobin 16.2 g/dL (12.2-16.2); Immature Granulocytes % 1.2 %; Mean Corpuscular HGB Conc 33.9 g/dL (31.8-35.4); Mean Corpuscular Hemoglobin 31.0 pg (27.0-31.2); Mean Corpuscular Volume 91.4 fl (81-99); Nucleated Red Blood Cells % 0 %; Platelet Count 344 K/mm3 (142-424); Red Blood Count 5.23 M/mm3 (4.20-5.40); Red Cell Distribution Width-SD 46.8 fL; White Blood Count 12.4 K/mm3 (4.8-10.8)
[2025-06-22] MEDS: ONDANSETRON 4MG/2ML VIAL 4 MG IV ×2 (16:41→18:16)
[2025-06-22] MEDS: ASPIRIN 81MG CHEWABLE TABLET 324 MG PO (16:41)
[2025-06-22] MEDS: NITROGLYCERIN 0.4MG SL TABLET 0.4 MG SL (16:42)
[2025-06-22] MEDS: HYDROMORPHONE 2MG/ML SYRINGE 0.25 MG IV ×2 (16:44→18:15)
[2025-06-22 16:49] LABS: Alanine Aminotransferase 18 U/L (12-78); Albumin Level 4.9 g/dl (3.5-5.0); Albumin/Globulin Ratio 1.5 (1.1-1.8); Alkaline Phosphatase 81 U/L (38-126); Anion Gap 11.6 mEq/L (5-15); Aspartate Amino Transferase 29 U/L (14-36); Bilirubin,Total 0.4 mg/dl (0.2-1.3); Blood Urea Nitrogen 24 mg/dl (7-17); Calcium 10.0 mg/dl (8.4-10.2); Carbon Dioxide 29 mmol/L (22.0-30.0); Chloride 102 mmol/L (98-107); Creatinine Clearance Estimated 37 mL/min (50-200); Creatinine,Serum 1.00 mg/dl (0.52-1.04); Estimated Glomerular Filt Rate 56 ml/min (>60); GFR (African American) 68 ML/MIN (>60); Globulin 3.3 g/dL (1.3-3.2); Glucose 99 mg/dl (74-100); Magnesium 2.3 mg/dl (1.6-2.3); Phosphorous 4.4 mg/dl (2.5-4.5); Potassium 3.6 mmoL/L (3.5-5.1); Sodium 139 mmol/L (136-145); Total Protein,Serum 8.2 g/dl (6.3-8.2)
[2025-06-22 16:54] LABS: D-Dimer 0.44 ug/mL (0.0-0.5)
[2025-06-22 17:01] LABS: NT Pro Brain Natriuretic Pep. 304 pg/mL (0-125)
[2025-06-22 17:04] LABS: Troponin I < 0.01 ng/ml (0.00-0.034)
--- NOTE | 2025-06-22 17:12 | ED_ITS ---
<Statement entered by Mauri Montoya MD - 06/22/25 22:23> Mauri Montoya MD: I was consulted by the ELISSA, and we discussed the complexity of the problems being addressed. I approve the treatment and management plan for this patient's care in the emergency department, thus performing a substantive portion of the medical decision making. Discharge Plan Disposition Patient Disposition: Home, Self-Care Condition: Good Prescriptions Prescriptions: New isosorbide dinitrate 30 mg tablet 30 mg PO ONCE Qty: 30 0RF Rx Instructions: allow nitrate-free interval of 12-14 hrs per 24-hr period nifedipine 30 mg tablet extended release 30 mg PO DAILY Qty: 30 0RF Rx Instructions: Take this 30 mg nifedipine along with your previously prescribed 60 mg nifedipine for total of 90 mg daily. No Action albuterol sulfate 90 mcg/actuation HFA aerosol inhaler 2 puff INHALATION Q6H carvedilol 12.5 mg tablet 12.5 mg PO BID Rx Instructions: must administer with a meal/food nifedipine 60 mg tablet extended release 60 mg PO DAILY irbesartan 150 mg tablet 150 mg PO DAILY Qty: 30 2RF hydrochlorothiazide 25 mg tablet 25 mg PO DAILY Qty: 30 2RF hydroxyzine pamoate 50 mg capsule 50 mg PO BID PRN (Reason: sleep or anxiety) 30 Days Qty: 60 2RF mirtazapine 30 mg tablet 45 mg PO DAILY 30 Days Qty: 45 2RF olanzapine 10 mg tablet 10 mg PO DAILY 30 Days Qty: 30 2RF nitroglycerin 0.3 mg tablet, sublingual 0.3 mg sublingual Q5M PRN Rx Instructions: do not exceed 3 doses per episode calcium carbonate [Calcium 600] 600 mg calcium (1,500 mg) tablet 600 mg PO BID aspirin 81 MG tablet,delayed release (DR/EC) 81 mg PO DAILY Referrals Follow up/Referrals: Karan Butt APRN [Nurse Practitioner, Family Practice] - See instructions Activity Restrictions/Add. Instructions Additional Instructions/Restrictions: Please follow-up in clinic tomorrow morning at 10 AM as we discussed. 1 new medication has been added to your daily regimen and your nifedipine has been increased from 60 mg to 90 mg. See the new prescription for details. Return to the emergency department with any worsening of current symptoms such as increasing of chest pain or shortness of breath, chest pressure or tightness radiating into your jaw or back, or any other emergent medical complaint or concern. Clinical Impressions Clinical Impression: Hypertension, Chest pain, Nicotine dependence Print Language Print Language: Georgian Discharge ED Provider: Mauri Montoya HPI <JOSE DE JESUS Walker - Last Filed: 06/22/25 21:56> General Chief Complaint: Chest Pain Stated Complaint: chest pain Time Seen by Provider: 06/22/25 16:22 Mode of Arrival: Ambulatory Source of Information: Patient Description of Symptoms (Recalled from ER Triage Doc. by RN): Pt presents with chest pain for the last two hours. Pt states the pain radiates to her left arm, back, neck, and jaw. History of Present Illness HPI narrative: Patient is a thin and ill-appearing 64-year-old female who presents to the emergency department with complaints of chest pain and high blood pressure. Patient states that she noticed her blood pressure was high this morning pain started in her chest this afternoon. Patient states that the pain was under her left armpit and states that she feels like it is going to the front and the back, as well as moving up the left side of her neck, and this HPI. Patient denies any nausea or vomiting, headache or sweating, recent fever, or other illness or new diagnosis. Related Data Home Medications ?Medication ?Instructions ?Recorded ?Confirmed albuterol sulfate 90 mcg/actuation 2 puff inhalation Q 6H Breathing 10/12/17 06/10/25 aerosol inhaler problems aspirin 81 mg tablet,delayed 81 mg PO DAILY Heart dise ase 06/03/19 06/10/25 release carvedilol 12.5 mg tablet 12.5 mg PO BID 12/04/2405/25 nifedipine 60 mg tablet,extended 60 mg PO DAILY 06/10/25 release calcium carbonate (Calcium 600) 600 mg PO BID 06/10/25 06/10/25 nitroglycerin 0.3 mg sublingual 0.3 mg sublingual Q5M PRN 06/10/25 06/10/25 tablet Previous Rx's ?Medication ?Instructions ?Recorded hydrochlorothiazide 25 mg tablet 25 mg PO DAILY #30 ta bs 12/04/24 irbesartan 150 mg tablet 150 mg PO DAILY #30 tabs 06/18 hydroxyzine pamoate 50 mg capsule 50 mg PO BID PRN sle ep or anxiety 05/12/25 30 days #60 caps mirtazapine 30 mg tablet 45 mg (1.5 x 30 mg) PO DAILY 30 05/12/25 days #45 tabs olanzapine 10 mg tablet 10 mg PO DAILY 30 days #30 t abs 05/12/25 isosorbide dinitrate 30 mg tablet 30 mg PO ONCE #30 ta bs 06/22/25 nifedipine 30 mg tablet,extended 30 mg PO DAILY #30 ta bs 06/22/25 release Allergies Allergy/AdvReac Type Severity Reaction Status Date / Time WHEAT Allergy Severe S-SWELLS-OR Uncoded 06/10/25 13:13 AL/THROAT From LEVAQUIN Allergy Intermediate I-RASH Uncoded 06/10/25 13:13 CODEINE Allergy Unknown S-SWELLS-OR Uncoded 06/10/25 13:13 AL/THROAT From CEFTIN Allergy Unknown I-RASH Uncoded 06/10/25 13:13 MYCINS Allergy Unknown Unknown Uncoded 06/10/25 13:13 allergy reaction TETRACYCLINE Allergy Unknown I-RASH Uncoded 06/10/25 13:13 [facility] <JOSE DE JESUS Walker - Last Filed: 06/22/25 21:56> [facility] Disclaimer: The information contained in this section may have been updated after the patient was seen, as this information can be updated by other users. Medical History (Updated 06/22/25 @ 21:44 by JOSE DE JESUS Walker) Pulmonary emphysema Squamous cell carcinoma of anal margin Psychosis Mood disorder Myocardial infarct, old Osteoporosis Tobacco abuse HLD (hyperlipidemia) HHD (hypertensive heart disease) CAD (coronary artery disease) Surgical History (Updated 06/10/25 @ 13:28 by ARELIS Tucker) History of D&C History of surgery History of tonsillectomy and adenoidectomy Hx of appendectomy History of coronary angioplasty with insertion of stent H/O heart artery stent H/O neck surgery Social History Smoking Status: Current every day smoker tobacco type: cigarettes packs per day: 1 alcohol intake: never substance use type: marijuana current occupational status: retired and disabled Travel in the last 8 weeks?: None Have you lived/traveled outside [place] in past 30 days?: No Contact w/someone who lives/traveled outside US past 30 days?: No Exposure to someone with infectious disease in past 14 days?: No Do you have a fever (greater than 100.4 F or 38 C)?: No Have you tested positive for COVID-19?: No Exposed to someone with COVID-19 in past 14 days?: No Do you have a sore throat?: No Do you have a cough?: No Do you have any weakness?: No Do you have any diarrhea?: No Are you experiencing any unusual bleeding?: No Do you have any muscle aches/pain?: No Do you have any abdominal pain?: No Are you experiencing loss of taste or smell?: No Other Medical History Have you received the Flu Vaccine for this season: Yes Have you received the Pneumonia Vaccine: No <JOSE DE JESUS Walker - Last Filed: 06/22/25 21:56> ROS Obtained: Yes Systems reviewed as appropriate & no additional complaints except as documented Physical Exam <JOSE DE JESUS Walker - Last Filed: 06/22/25 21:56> General General appearance: alert and cachectic Head Head exam: atraumatic and normocephalic Eye Eye exam: Present normal appearance and PERRL ENT ENT exam: Present normal exam and normal oropharynx Neck Neck exam: Present normal inspection, full ROM, trachea midline and tenderness (Tenderness to left side of neck and jaw) Chest Chest inspection: Present normal inspection and symmetric chest wall rise; Absent tenderness Respiratory Respiratory exam: Present normal lung sounds bilaterally; Absent respiratory distress, wheezes or stridor Cardiovascular Cardiovascular exam: Present regular rate, normal rhythm and normal heart sounds Abdominal Exam Abdominal exam: Present soft and diminished bowel sounds; Absent distention, tenderness or guarding Extremities Exam Extremities exam: Present normal inspection and full ROM Back Exam Back exam: Present normal inspection Neurological Exam Neurological exam: Present alert and oriented X3 Psychiatric Psychiatric exam: Present normal affect and normal mood Skin Skin exam: Present warm, dry and normal color HEART Score <JOSE DE JESUS Walker Last Filed: 06/22/25 21:56> HEART Score HEART Score assessment performed?: No History (anamnesis): Highly suspicious ECG: Non-specific disturbance Age: 45-65 years Risk factors: Atherosclerosis history Troponin: </= normal limit HEART Score: 6 Critical Care <JOSE DE JESUS Walker Last Filed: 06/22/25 21:56> Critical Care Time Critical Care Time: No Medical Decision Making <JOSE DE JESUS Walker - Last Filed: 06/22/25 21:56> Barry Inquiry Pt receiving controlled substance: No Vital Signs Vital Signs: 06/22/25 16:24 06/22/25 17:00 06/22/25 17:15 Temperature 98.0 F Temperature Source Oral Pulse Rate 77 71 Pulse Rate [Right] 83 Respiratory Rate 18 18 16 Blood Pressure 191/113 H 186/110 H Blood Pressure [Left Arm] 208/118 H Blood Pressure Mean 139 140 Blood Pressure Mean [Left Arm] 148 Blood Pressure Source [Left Arm] Automatic Cuff Blood Pressure Position [Left Arm] Sitting 02 Sat by Pulse Oximetry 96 97 98 Oxygen Delivery Method Room Air 06/22/25 17:45 06/22/25 18:00 06/22/25 18:15 Temperature Temperature Source Pulse Rate 65 67 Pulse Rate [Right] Respiratory Rate 17 15 Blood Pressure 179/115 H 168/99 H 176/109 H Blood Pressure [Left Arm] Blood Pressure Mean 141 Blood Pressure Mean [Left Arm] Blood Pressure Source [Left Arm] Blood Pressure Position [Left Arm] 02 Sat by Pulse Oximetry 98 98 Oxygen Delivery Method Room Air Room Air 06/22/25 18:30 06/22/25 18:45 06/22/25 19:00 Temperature Temperature Source Pulse Rate 59 L 63 Pulse Rate [Right] Respiratory Rate 18 16 Blood Pressure 174/97 H 164/97 H Blood Pressure [Left Arm] Blood Pressure Mean 119 Blood Pressure Mean [Left Arm] Blood Pressure Source [Left Arm] Blood Pressure Position [Left Arm] 02 Sat by Pulse Oximetry 97 98 Oxygen Delivery Method Room Air Room Air 06/22/25 19:00 06/22/25 19:15 06/22/25 19:15 Temperature Temperature Source Pulse Rate 68 Pulse Rate [Right] Respiratory Rate 15 Blood Pressure 158/99 H 162/137 H Blood Pressure [Left Arm] Blood Pressure Mean 125 144 Blood Pressure Mean [Left Arm] Blood Pressure Source [Left Arm] Blood Pressure Position [Left Arm] 02 Sat by Pulse Oximetry 100 Oxygen Delivery Method Room Air 06/22/25 19:30 06/22/25 19:30 06/22/25 19:45 Temperature Temperature Source Pulse Rate 62 67 Pulse Rate [Right] Respiratory Rate 14 16 Blood Pressure 179/101 H Blood Pressure [Left Arm] Blood Pressure Mean 131 Blood Pressure Mean [Left Arm] Blood Pressure Source [Left Arm] Blood Pressure Position [Left Arm] 02 Sat by Pulse Oximetry 98 98 Oxygen Delivery Method Room Air Room Air 06/22/25 19:45 06/22/25 20:00 06/22/25 20:00 Temperature Temperature Source Pulse Rate 60 Pulse Rate [Right] Respiratory Rate 17 Blood Pressure 153/99 H 146/87 H Blood Pressure [Left Arm] Blood Pressure Mean 130 106 Blood Pressure Mean [Left Arm] Blood Pressure Source [Left Arm] Blood Pressure Position [Left Arm] 02 Sat by Pulse Oximetry 98 Oxygen Delivery Method Room Air 06/22/25 20:15 06/22/25 20:16 06/22/25 20:16 Temperature Temperature Source Pulse Rate 57 L 61 Pulse Rate [Right] Respiratory Rate Blood Pressure 158/78 H Blood Pressure [Left Arm] Blood Pressure Mean 104 Blood Pressure Mean [Left Arm] Blood Pressure Source [Left Arm] Blood Pressure Position [Left Arm] 02 Sat by Pulse Oximetry 100 99 Oxygen Delivery Method Room Air Room Air 06/22/25 20:30 06/22/25 20:30 06/22/25 20:45 Temperature Temperature Source Pulse Rate 64 58 L Pulse Rate [Right] Respiratory Rate 15 15 Blood Pressure 165/98 H Blood Pressure [Left Arm] Blood Pressure Mean 114 Blood Pressure Mean [Left Arm] Blood Pressure Source [Left Arm] Blood Pressure Position [Left Arm] 02 Sat by Pulse Oximetry 100 99 Oxygen Delivery Method Room Air Room Air 06/22/25 20:45 06/22/25 21:00 06/22/25 21:01 Temperature Temperature Source Pulse Rate 64 Pulse Rate [Right] Respiratory Rate 16 Blood Pressure 166/86 H 167/88 H Blood Pressure [Left Arm] Blood Pressure Mean 120 114 Blood Pressure Mean [Left Arm] Blood Pressure Source [Left Arm] Blood Pressure Position [Left Arm] 02 Sat by Pulse Oximetry 96 Oxygen Delivery Method Room Air 06/22/25 21:01 06/22/25 21:15 06/22/25 21:15 Temperature Temperature Source Pulse Rate 63 64 Pulse Rate [Right] Respiratory Rate 18 17 Blood Pressure 166/81 H Blood Pressure [Left Arm] Blood Pressure Mean 121 Blood Pressure Mean [Left Arm] Blood Pressure Source [Left Arm] Blood Pressure Position [Left Arm] 02 Sat by Pulse Oximetry 96 96 Oxygen Delivery Method Room Air Room Air 06/22/25 21:30 06/22/25 21:45 06/22/25 21:45 Temperature Temperature Source Pulse Rate 61 Pulse Rate [Right] Respiratory Rate 18 17 Blood Pressure 166/103 H Blood Pressure [Left Arm] Blood Pressure Mean 136 Blood Pressure Mean [Left Arm] Blood Pressure Source [Left Arm] Blood Pressure Position [Left Arm] 02 Sat by Pulse Oximetry 99 Oxygen Delivery Method Room Air 06/22/25 21:49 Temperature 98.9 F Temperature Source Pulse Rate 74 Pulse Rate [Right] Respiratory Rate 19 Blood Pressure 134/78 Blood Pressure [Left Arm] Blood Pressure Mean Blood Pressure Mean [Left Arm] Blood Pressure Source [Left Arm] Blood Pressure Position [Left Arm] 02 Sat by Pulse Oximetry Oxygen Delivery Method Room Air Lab Data Lab results reviewed: Yes I reviewed the patient's lab results. Labs: Lab Results 06/22/25 16:27: WBC 12.4 H, RBC 5.23, Hgb 16.2, Hct 47.8 H, MCV 91.4, MCH 31.0, MCHC 33.9, RDW 14.0, Plt Count 344, MPV 8.4, Neut % (Auto) 63.8, Lymph % (Auto) 23.1, Mcdonald % (Auto) 8.1, Eos % (Auto) 2.6, Baso % (Auto) 1.2, Neut # (Auto) 7.9 H, Lymph # (Auto) 2.9, Mcdonald # (Auto) 1.0, Eos # (Auto) 0.3, Baso # (Auto) 0.2, D-Dimer 0.44, Sodium 139, Potassium 3.6, Chloride 102, Carbon Dioxide 29, Anion Gap 11.6, BUN 24 H, Creatinine 1.00, Estimated Creat Clear 37, Estimated GFR 56 L, Est GFR ( Amer) 68, Glucose 99, Calcium 10.0, Phosphorus 4.4, Magnesium 2.3, Total Bilirubin 0.4, AST 29, ALT 18, Alkaline Phosphatase 81, Troponin I < 0.01, NT-Pro-B Natriuret Pep 304 H, Total Protein 8.2, Albumin 4.9, Globulin 3.3 H, Albumin/Globulin Ratio 1.5 06/22/25 20:20: Troponin I 0.01 06/22/25 16:27 06/22/25 16:27 Response Orders (Tests/Meds): ED MEDICATIONS Generic Name Dose Route Start Last Admin Trade Name Francesco PRN Reason Stop Dose Admin Nitroglycerin 0.4 mg 06/22/25 16:31 06/22/25 16:42 Nitroglycerin 0.4mg Sl Tablet SL 06/23/25 16:31 0.4 mg Q5MINP PRN Administration Chest Pain Discontinued Medications Generic Name Dose Route Start Last Admin Trade Name Francesco PRN Reason Stop Dose Admin Aspirin 324 mg 06/22/25 16:31 06/22/25 16:41 Aspirin 81mg Chewable Tablet PO 06/22/25 16:32 324 mg ONCE ONE Administration Hydromorphone HCl 0.25 mg 06/22/25 16:31 06/22/25 16:42 Hydromorphone 4 Mg/Ml Syringe IV 06/22/25 16:32 Not Given ONCE ONE Hydromorphone HCl 0.25 mg 06/22/25 16:39 06/22/25 16:44 Hydromorphone 2mg/Ml Syringe IV 06/22/25 16:40 0.25 mg ONCE ONE Administration Hydromorphone HCl 0.25 mg 06/22/25 18:00 06/22/25 18:15 Hydromorphone 2mg/Ml Syringe IV 06/22/25 18:01 0.25 mg ONCE ONE Administration Isosorbide Dinitrate 30 mg 06/22/25 21:21 06/22/25 21:35 Isosorbide Dinitrate 20 Mg Tablet PO 06/22/25 21:22 30 mg ONCE ONE Administration Ondansetron HCl 4 mg 06/22/25 16:31 06/22/25 16:41 Ondansetron 4mg/2ml Vial IV 06/22/25 16:32 4 mg ONCE ONE Administration Ondansetron HCl 4 mg 06/22/25 18:11 06/22/25 18:16 Ondansetron 4mg/2ml Vial IV 06/22/25 18:12 4 mg ONCE ONE Administration ORDERS Category Date Time Status XR chest portable Stat Exams 06/22/25 16:31 Completed Complete Blood Count Auto Diff Stat Lab 06/22/25 16:27 Completed Comprehensive Metabolic Panel Stat Lab 06/22/25 16:27 Completed D-Dimer Stat Lab 06/22/25 16:27 Completed Magnesium Stat Lab 06/22/25 16:27 Completed NT Pro Brain Natriuretic Pep. Stat Lab 06/22/25 16:27 Completed Phosphorous Stat Lab 06/22/25 16:27 Completed Troponin I Q3H Lab 06/22/25 20:20 Completed Troponin I Q3H Lab 06/22/25 22:45 Ordered Troponin I Stat Lab 06/22/25 16:27 Completed MDM Narrative Medical Decision Narrative: In summary patient is an ill-appearing 64-year-old female who presents to the emergency department for evaluation of chest pain and high blood pressure. Patient is hypertensive but otherwise hemodynamically unremarkable upon arrival, afebrile throughout ED course. Unremarkable physical exam with no wheezing or rhonchi, no tenderness or stiffness; see above for full details of physical exam. Differential diagnosis includes ACS, pneumonia, COPD exacerbation. Initial workup will be conducted with EKG, chest x-ray, and labs. Initial interventions include pain and nausea medication with new prescription for isosorbide per Dr. Michelle. Initial workup reviewed by me is remarkable for mild elevation of BNP at 304. Otherwise labs generally unremarkable with no significant electrolyte derangement, kidney injury, or transaminitis on CMP, no significant leukocytosis or anemia on CBC, and troponin negative for 2 tests. Upon repeat evaluation patient states that she is feeling better with the chest pressure and neck pain being reduced. After consultation with hospitalist and second baller Dr. Michelle, plan of care is for patient to be discharged home to follow-up with him in clinic tomorrow morning at 10 AM. Patient verbalizes understanding of and is amenable to this plan of care. Patient is alert and oriented, nontoxic and afebrile, GCS 15; given this and detailed plan for cardiology follow-up, she is stable and appropriate for discharge at this time. I informally interpreted the patient's chest x-ray as being unremarkable with no concerning findings. See above for full radiology impression. <Mauri Montoya MD - Last Filed: 06/22/25 18:37> Vital Signs Vital Signs: 06/22/25 16:24 06/22/25 17:00 06/22/25 17:15 Temperature 98.0 F Temperature Source Oral Pulse Rate 77 71 Pulse Rate [Right] 83 Respiratory Rate 18 18 16 Blood Pressure 191/113 H 186/110 H Blood Pressure [Left Arm] 208/118 H Blood Pressure Mean 139 140 Blood Pressure Mean [Left Arm] 148 Blood Pressure Source [Left Arm] Automatic Cuff Blood Pressure Position [Left Arm] Sitting 02 Sat by Pulse Oximetry 96 97 98 Oxygen Delivery Method Room Air 06/22/25 17:45 06/22/25 18:00 06/22/25 18:15 Temperature Temperature Source Pulse Rate 65 67 Pulse Rate [Right] Respiratory Rate 17 15 Blood Pressure 179/115 H 168/99 H 176/109 H Blood Pressure [Left Arm] Blood Pressure Mean 141 Blood Pressure Mean [Left Arm] Blood Pressure Source [Left Arm] Blood Pressure Position [Left Arm] 02 Sat by Pulse Oximetry 98 98 Oxygen Delivery Method Room Air Room Air 06/22/25 18:30 06/22/25 18:45 06/22/25 19:00 Temperature Temperature Source Pulse Rate 59 L 63 Pulse Rate [Right] Respiratory Rate 18 16 Blood Pressure 174/97 H 164/97 H Blood Pressure [Left Arm] Blood Pressure Mean 119 Blood Pressure Mean [Left Arm] Blood Pressure Source [Left Arm] Blood Pressure Position [Left Arm] 02 Sat by Pulse Oximetry 97 98 Oxygen Delivery Method Room Air Room Air 06/22/25 19:00 06/22/25 19:15 06/22/25 19:15 Temperature Temperature Source Pulse Rate 68 Pulse Rate [Right] Respiratory Rate 15 Blood Pressure 158/99 H 162/137 H Blood Pressure [Left Arm] Blood Pressure Mean 125 144 Blood Pressure Mean [Left Arm] Blood Pressure Source [Left Arm] Blood Pressure Position [Left Arm] 02 Sat by Pulse Oximetry 100 Oxygen Delivery Method Room Air 06/22/25 19:30 06/22/25 19:30 06/22/25 19:45 Temperature Temperature Source Pulse Rate 62 67 Pulse Rate [Right] Respiratory Rate 14 16 Blood Pressure 179/101 H Blood Pressure [Left Arm] Blood Pressure Mean 131 Blood Pressure Mean [Left Arm] Blood Pressure Source [Left Arm] Blood Pressure Position [Left Arm] 02 Sat by Pulse Oximetry 98 98 Oxygen Delivery Method Room Air Room Air 06/22/25 19:45 06/22/25 20:00 06/22/25 20:00 Temperature Temperature Source Pulse Rate 60 Pulse Rate [Right] Respiratory Rate 17 Blood Pressure 153/99 H 146/87 H Blood Pressure [Left Arm] Blood Pressure Mean 130 106 Blood Pressure Mean [Left Arm] Blood Pressure Source [Left Arm] Blood Pressure Position [Left Arm] 02 Sat by Pulse Oximetry 98 Oxygen Delivery Method Room Air 06/22/25 20:15 06/22/25 20:16 06/22/25 20:16 Temperature Temperature Source Pulse Rate 57 L 61 Pulse Rate [Right] Respiratory Rate Blood Pressure 158/78 H Blood Pressure [Left Arm] Blood Pressure Mean 104 Blood Pressure Mean [Left Arm] Blood Pressure Source [Left Arm] Blood Pressure Position [Left Arm] 02 Sat by Pulse Oximetry 100 99 Oxygen Delivery Method Room Air Room Air 06/22/25 20:30 06/22/25 20:30 06/22/25 20:45 Temperature Temperature Source Pulse Rate 64 58 L Pulse Rate [Right] Respiratory Rate 15 15 Blood Pressure 165/98 H Blood Pressure [Left Arm] Blood Pressure Mean 114 Blood Pressure Mean [Left Arm] Blood Pressure Source [Left Arm] Blood Pressure Position [Left Arm] 02 Sat by Pulse Oximetry 100 99 Oxygen Delivery Method Room Air Room Air 06/22/25 20:45 06/22/25 21:00 06/22/25 21:01 Temperature Temperature Source Pulse Rate 64 Pulse Rate [Right] Respiratory Rate 16 Blood Pressure 166/86 H 167/88 H Blood Pressure [Left Arm] Blood Pressure Mean 120 114 Blood Pressure Mean [Left Arm] Blood Pressure Source [Left Arm] Blood Pressure Position [Left Arm] 02 Sat by Pulse Oximetry 96 Oxygen Delivery Method Room Air 06/22/25 21:01 06/22/25 21:15 06/22/25 21:15 Temperature Temperature Source Pulse Rate 63 64 Pulse Rate [Right] Respiratory Rate 18 17 Blood Pressure 166/81 H Blood Pressure [Left Arm] Blood Pressure Mean 121 Blood Pressure Mean [Left Arm] Blood Pressure Source [Left Arm] Blood Pressure Position [Left Arm] 02 Sat by Pulse Oximetry 96 96 Oxygen Delivery Method Room Air Room Air 06/22/25 21:30 06/22/25 21:45 06/22/25 21:45 Temperature Temperature Source Pulse Rate 61 Pulse Rate [Right] Respiratory Rate 18 17 Blood Pressure 166/103 H Blood Pressure [Left Arm] Blood Pressure Mean 136 Blood Pressure Mean [Left Arm] Blood Pressure Source [Left Arm] Blood Pressure Position [Left Arm] 02 Sat by Pulse Oximetry 99 Oxygen Delivery Method Room Air 06/22/25 21:49 Temperature 98.9 F Temperature Source Pulse Rate 74 Pulse Rate [Right] Respiratory Rate 19 Blood Pressure 134/78 Blood Pressure [Left Arm] Blood Pressure Mean Blood Pressure Mean [Left Arm] Blood Pressure Source [Left Arm] Blood Pressure Position [Left Arm] 02 Sat by Pulse Oximetry Oxygen Delivery Method Room Air Lab Data Labs: Lab Results 06/22/25 16:27: WBC 12.4 H, RBC 5.23, Hgb 16.2, Hct 47.8 H, MCV 91.4, MCH 31.0, MCHC 33.9, RDW 14.0, Plt Count 344, MPV 8.4, Neut % (Auto) 63.8, Lymph % (Auto) 23.1, Mcdonald % (Auto) 8.1, Eos % (Auto) 2.6, Baso % (Auto) 1.2, Neut # (Auto) 7.9 H, Lymph # (Auto) 2.9, Mcdonald # (Auto) 1.0, Eos # (Auto) 0.3, Baso # (Auto) 0.2, D-Dimer 0.44, Sodium 139, Potassium 3.6, Chloride 102, Carbon Dioxide 29, Anion Gap 11.6, BUN 24 H, Creatinine 1.00, Estimated Creat Clear 37, Estimated GFR 56 L, Est GFR ( Amer) 68, Glucose 99, Calcium 10.0, Phosphorus 4.4, Magnesium 2.3, Total Bilirubin 0.4, AST 29, ALT 18, Alkaline Phosphatase 81, Troponin I < 0.01, NT-Pro-B Natriuret Pep 304 H, Total Protein 8.2, Albumin 4.9, Globulin 3.3 H, Albumin/Globulin Ratio 1.5 06/22/25 20:20: Troponin I 0.01 Response Orders (Tests/Meds): ED MEDICATIONS Generic Name Dose Route Start Last Admin Trade Name Freq PRN Reason Stop Dose Admin Nitroglycerin 0.4 mg 06/22/25 16:31 06/22/25 16:42 Nitroglycerin 0.4mg Sl Tablet SL 06/23/25 16:31 0.4 mg Q5MINP PRN Administration Chest Pain Discontinued Medications Generic Name Dose Route Start Last Admin Trade Name Freq PRN Reason Stop Dose Admin Aspirin 324 mg 06/22/25 16:31 06/22/25 16:41 Aspirin 81mg Chewable Tablet PO 06/22/25 16:32 324 mg ONCE ONE Administration Hydromorphone HCl 0.25 mg 06/22/25 16:31 06/22/25 16:42 Hydromorphone 4 Mg/Ml Syringe IV 06/22/25 16:32 Not Given ONCE ONE Hydromorphone HCl 0.25 mg 06/22/25 16:39 06/22/25 16:44 Hydromorphone 2mg/Ml Syringe IV 06/22/25 16:40 0.25 mg ONCE ONE Administration Hydromorphone HCl 0.25 mg 06/22/25 18:00 06/22/25 18:15 Hydromorphone 2mg/Ml Syringe IV 06/22/25 18:01 0.25 mg ONCE ONE Administration Isosorbide Dinitrate 30 mg 06/22/25 21:21 06/22/25 21:35 Isosorbide Dinitrate 20 Mg Tablet PO 06/22/25 21:22 30 mg ONCE ONE Administration Ondansetron HCl 4 mg 06/22/25 16:31 06/22/25 16:41 Ondansetron 4mg/2ml Vial IV 06/22/25 16:32 4 mg ONCE ONE Administration Ondansetron HCl 4 mg 06/22/25 18:11 06/22/25 18:16 Ondansetron 4mg/2ml Vial IV 06/22/25 18:12 4 mg ONCE ONE Administration ORDERS Category Date Time Status XR chest portable Stat Exams 06/22/25 16:31 Completed Complete Blood Count Auto Diff Stat Lab 06/22/25 16:27 Completed Comprehensive Metabolic Panel Stat Lab 06/22/25 16:27 Completed D-Dimer Stat Lab 06/22/25 16:27 Completed Magnesium Stat Lab 06/22/25 16:27 Completed NT Pro Brain Natriuretic Pep. Stat Lab 06/22/25 16:27 Completed Phosphorous Stat Lab 06/22/25 16:27 Completed Troponin I Q3H Lab 06/22/25 20:20 Completed Troponin I Q3H Lab 06/22/25 22:45 Ordered Troponin I Stat Lab 06/22/25 16:27 Completed ECG Data Tracing #1: Attestation: I reviewed this ECG and interpreted as documented below: ECG Narrative: Normal sinus rhythm. ST depressions in V4, V5 as well as mild depressions in 2, 3 and aVF without reciprocal changes.
[2025-06-22 21:08] LABS: Troponin I 0.01 ng/ml (0.00-0.034)
[2025-06-22] MEDS: ISOSORBIDE DINITRATE 20 MG TABLET 30 MG PO (21:35)
== END 2025-06-22 21:53 | disposition home or self-care (01) ==
PROVIDERS: Physician Assistant; Emergency Provider Student in an Organized Health Care Education/Training Program; PCP Nurse Practitioner Family
DX: R07.9 Chest pain, unspecified (principal); I10 Essential (primary) hypertension; F17.210 Nicotine dependence, cigarettes, uncomplicated; E78.5 Hyperlipidemia, unspecified; Z86.79 Personal history of other diseases of the circulatory system; Z95.5 Presence of coronary angioplasty implant and graft; R79.89 Other specified abnormal findings of blood chemistry
CPT/HCPCS: 71045; 80053; 83735; 83880; 84100; 84484; 85025; 85378; 93005; 96374; 96375; 96376; 99285; J1171; J2405